=== PATIENT | male | born 1940 | race Caucasian/White ===

== ENCOUNTER 2023-05-02 12:00 | Observation (INO) | payer OTHER ==
--- OUTSIDE RECORDS SUMMARY | 2023-05-02 12:05 | XMS REPORT | Continuity of Care Document ---
:1940 Author Organization [facility] t Address [address] [place] [address] [address] [place] [address] Care Team Providers Name Role Phone William Bernstein Attending Clinician Unavailable Stevo Pereyra Attending Clinician Unavailable Yimi Dykes Attending Clinician Unavailable Yimi Dykes Admitting Clinician Unavailable Payers Payer Name Policy Type Policy Number Effective Date Expiration Date S ource Problems This patient has no known problems. Allergies, Adverse Reactions, Alerts Allergy Allergy Status Severity Reaction(s) Onset Inactive Treating Comm ents Source Name Type Date Date Clinician No Known DA Active U 2020-0 [facility] 1-20 Clear Allergie 00:00: Paul s [facility] No Known DA Active U 2020-0 [facility] 1-20 Clear Allergie 00:00: Paul s [facility] amlodipi DA Active U 2020-0 [facility] ne 1-12 Clear 00:00: Paul [facility] hydralaz DA Active U 2020-0 [facility] ine 1-12 Clear 00:00: Paul [facility] levothyr DA Active U 2020-0 [facility] oxine 1-12 Clear 00:00: Paul [facility] edoxaban DA Active U 2020-0 [facility] 1-12 Clear 00:00: Paul [facility] amlodipi DA Active U UNKNOWN 2020-0 [facility] ne 1-12 Clear 00:00: Paul [facility] hydralaz DA Active U UNKNOWN 2020-0 [facility] ine 1-12 Clear 00:00: Paul [facility] levothyr DA Active U UNKNOWN [facility] oxine 1-12 Clear 00:00: Paul [facility] edoxaban DA Active U UNKNOWN [facility] 1-12 Clear 00:00: Paul [facility] Medications This patient has no known medications. Procedures Procedure Date / Time Performed Performing Clinician [facility] e [id number] 2020-10-06 00:00:00 CHAAB.01 [facility] [id number] 2020-10-06 00:00:00 CHAAB.01 [facility] [id number] 2020-10-06 00:00:00 CHAAB.01 [facility] Encounters Start End Encounter Admission Attending Care Care Encounter Source Date/Time Date/Time Type Type Clinicians Facility Department ID 2020-10-05 2020-10-05 Emergency EM Bernstein, [facility] [id number] [facility] 13:47:00 13:47:00 William 62 [facility] 2020-09-27 2020-09-27 Outpatient Roddy, [facility] [id number] [facility] 09:30:00 09:30:00 Kaylyn 99 [facility] 2020-08-30 2020-08-30 Outpatient Dykes, [facility] RMRI [id number] [facility] 16:00:00 16:00:00 Yimi 22 [facility] Results Test Description Test Time Test Comments Results Result Comments Source BASIC METABOLIC PANEL 2020-10-07 04:26:00 Test Item Value Reference Range Interpretation Comme nts SODIUM (test code = NA) 136 mEq/L 134-147 N POTASSIUM (test code = K) 3.8 mEq/L 3.4-5.0 N CHLORIDE (test code = CL) 103 mEq/L 100-108 N CARBON DIOXIDE (test code = CO2) 26 mEq/l 21-33 N ANION GAP (test code = GAP) 11 0-20 N GLUCOSE (test code = GLU) 138 mg/dL 70-110 H BLOOD UREA NITROGEN (test code = 20 mg/dL 7-18 H BUN) GLOMERULAR FILTRATION RATE (test 72.3 70-80 N Units of measure = ml/min/1.73 code = GFR) m2 CREATININE (test code = CREAT) 1.0 mg/dL 0.6-1.3 N CALCIUM (test code = CA) 9.2 mg/dL 8.0-10.5 N CBC W/AUTO [id number] 04:16:00 Test Item Value Reference Range Interpretation Comments WHITE BLOOD CELL (test code = 10.5 x10 3/uL 4.5-11.0 WBC) RED BLOOD CELL (test code = 4.49 x10 6/uL 4.00-5.60 N RBC) HEMOGLOBIN (test code = HGB) 14.3 g/dL 12.5-16.9 N HEMATOCRIT (test code = HCT) 43.2 % 37.5-50.7 N MEAN CELL VOLUME (test code = 96.2 fL 81.0-99.0 N MCV) MEAN CELL HGB (test code = MCH) 31.8 pg 27.0-33.0 N MEAN CELL HGB CONCETRATION 33.1 g/dL 33.0-37.0 N (test code = MCHC) RED CELL DISTRIBUTION WIDTH CV 13.8 % 11.5-14.5 N (test code = RDW) RED CELL DISTRIBUTION WIDTH SD 48.8 fL 37.0-54.0 N (test code = RDW-SD) PLATELET COUNT (test code = 180 x10 3/uL 150-400 N PLT) MEAN PLATELET VOLUME (test code 11.3 fL 7.0-9.0 H = MPV) NEUTROPHIL % (test code = NT%) 80.1 % 56.0-77.0 H IMMATURE GRANULOCYTE % (test 0.5 % 0.0-2.0 N code = IG%) LYMPHOCYTE % (test code = LY%) 10.2 % 14.0-32.0 L MONOCYTE % (test code = MO%) 9.1 % 4.8-9.0 H EOSINOPHIL % (test code = EO%) 0.0 % 0.3-3.7 L BASOPHIL % (test code = BA%) 0.1 % 0.0-2.0 N NUCLEATED RBC % (test code = 0.0 % 0-0 N NRBC%) NEUTROPHIL # (test code = NT#) 8.41 x10 3/uL 2.0-7.6 H IMMATURE GRANULOCYTE # (test 0.05 x10 3/uL 0.00-0.03 H code = IG#) LYMPHOCYTE # (test code = LY#) 1.07 x10 3/uL 1.0-3.8 N MONOCYTE # (test code = MO#) 0.95 x10 3/uL 0.1-0.8 H EOSINOPHIL # (test code = EO#) 0.00 x10 3/uL 0.0-0.2 N BASOPHIL # (test code = BA#) 0.01 x10 3/uL 0.0-0.2 N NUCLEATED RBC # (test code = 0.00 x10 3/uL 0.0-0.1 N NRBC#) MANUAL DIFF REQUIRED (test code NO = MDIFF) COMPREHENSIVE METABOLIC [id number] 13:52:00 Test Item Value Reference Range Interpretation Comments SODIUM (test code = NA) 137 mEq/L 134-147 N POTASSIUM (test code = 3.7 mEq/L 3.4-5.0 N K) CHLORIDE (test code = 107 mEq/L 100-108 N CL) CARBON DIOXIDE (test 25 mEq/l 21-33 N code = CO2) ANION GAP (test code = 9 0-20 N GAP) GLUCOSE (test code = 150 mg/dL 70-110 H GLU) BLOOD UREA NITROGEN 18 mg/dL 7-18 N (test code = BUN) GLOMERULAR FILTRATION 81.6 70-80 H Units of measure = RATE (test code = GFR) ml/mi n/1.73 m2 CREATININE (test code = 0.9 mg/dL 0.6-1.3 N CREAT) TOTAL PROTEIN (test 6.9 g/dL 6.4-8.2 N code = PROT) ALBUMIN (test code = 3.40 g/dL 3.4-5.0 N ALB) CALCIUM (test code = 9.4 mg/dL 8.0-10.5 N CA) BILIRUBIN TOTAL (test 0.70 mg/dL 0.0-1.0 N code = BILT) SGOT/AST (test code = 26 IUnit/L 15-37 N AST) SGPT/ALT (test code = 18 IUnit/L 30-65 L ALT) ALKALINE PHOSPHATASE 69 IUnit/L 20-125 N TOTAL (test code = ALKP) [id number] 13:52:00 Test Item Value Reference Range Interpretation Comments PHOSPHOROUS (test code = PHOS) 2.4 MG/DL 2.5-4.9 L [id number] 13:52:00 Test Item Value Reference Range Interpretation Comments MAGNESIUM (test code = MAG) 1.71 mg/dL 1.80-2.40 L CALCIUM [id number] 13:52:00 Test Item Value Reference Range Interpretation Comments CALCIUM IONIZED (test code = ARIANNA) 1.19 MMOL/L 1.12-1.32 N PROTHROMBIN [id number] 13:30:00 Test Item Value Reference Range Interpretation Comments PROTHROMBIN TIME 14.9 SECONDS 9.3-12.9 H PATIENT (test code = PTP) INTERNATIONAL NORMAL 1.4 0.8-1.2 H TARGET INR BY RATIO (test code = INDICATIO N Indication INR) INR1. Prophylax is of venous thrombos is 2.0 - 3.0 (orthoped ic surgery), Proph ylaxis of venous throm bosis (other than hig h-risk surgery), Treat ment of Deep Vein Thrombosis/Pulm onary Embolism, Preve ntion of systemic emb olism - Tissue heart va lves, Acute Myocardia l Infarction (to prevent systemic emboli sm), Valvular heart disease, Atrial Fibrillation, Bileaflet mecha nical valve in aortic position.2. Mec hanical prosthetic valv es (high risk), 2. 5 - 3.5 Presence of Lup us Anticoagulant o r Antiphospholipi d Antibodies, Pre vention of systemic em bolism - Acute Myocard ial Infarction (to prevent recurrent infar ct). LACTIC [id number] 13:29:00 Test Item Value Reference Range Interpretation Comments LACTIC ACID (test code = LACT) 1.0 mmol/L 0.4-1.9 N COMPREHENSIVE METABOLIC [id number] 13:21:00 Test Item Value Reference Range Interpretation Comments SODIUM (test code = NA) mEq/L 134-147 POTASSIUM (test code = K) mEq/L 3.4-5.0 CHLORIDE (test code = CL) mEq/L 100-108 CARBON DIOXIDE (test code = CO2) mEq/l 21-33 ANION GAP (test code = GAP) 0-20 GLUCOSE (test code = GLU) mg/dL 70-110 BLOOD UREA NITROGEN (test code = mg/dL 7-18 BUN) GLOMERULAR FILTRATION RATE (test 70-80 code = GFR) CREATININE (test code = CREAT) mg/dL 0.6-1.3 TOTAL PROTEIN (test code = PROT) g/dL 6.4-8.2 ALBUMIN (test code = ALB) g/dL 3.4-5.0 CALCIUM (test code = CA) mg/dL 8.0-10.5 BILIRUBIN TOTAL (test code = BILT) mg/dL 0.0-1.0 SGOT/AST (test code = AST) IUnit/L 15-37 SGPT/ALT (test code = ALT) IUnit/L 30-65 ALKALINE PHOSPHATASE TOTAL (test IUnit/L 20-125 code = ALKP) [id number] 13:21:00 Test Item Value Reference Range Interpretation Comments PHOSPHOROUS (test code = PHOS) MG/DL 2.5-4.9 [id number] 13:21:00 Test Item Value Reference Range Interpretation Comments MAGNESIUM (test code = MAG) mg/dL 1.80-2.40 CALCIUM [id number] 13:21:00 Test Item Value Reference Range Interpretation Comments CALCIUM IONIZED (test code = ARIANNA) 1.19 MMOL/L 1.12-1.32 N CBC W/AUTO [id number] 13:20:00 Test Item Value Reference Range Interpretation Comments WHITE BLOOD CELL (test code = 6.8 x10 3/uL 4.5-11.0 N WBC) RED BLOOD CELL (test code = 4.58 x10 6/uL 4.00-5.60 N RBC) HEMOGLOBIN (test code = HGB) 14.9 g/dL 12.5-16.9 N HEMATOCRIT (test code = HCT) 43.9 % 37.5-50.7 N MEAN CELL VOLUME (test code = 95.9 fL 81.0-99.0 N MCV) MEAN CELL HGB (test code = MCH) 32.5 pg 27.0-33.0 N MEAN CELL HGB CONCETRATION 33.9 g/dL 33.0-37.0 N (test code = MCHC) RED CELL DISTRIBUTION WIDTH CV 14.0 % 11.5-14.5 N (test code = RDW) RED CELL DISTRIBUTION WIDTH SD 49.3 fL 37.0-54.0 N (test code = RDW-SD) PLATELET COUNT (test code = 165 x10 3/uL 150-400 N PLT) MEAN PLATELET VOLUME (test code 11.2 fL 7.0-9.0 H = MPV) NEUTROPHIL % (test code = NT%) 85.3 % 56.0-77.0 H IMMATURE GRANULOCYTE % (test 0.6 % 0.0-2.0 N code = IG%) LYMPHOCYTE % (test code = LY%) 11.3 % 14.0-32.0 L MONOCYTE % (test code = MO%) 2.4 % 4.8-9.0 L EOSINOPHIL % (test code = EO%) 0.1 % 0.3-3.7 L BASOPHIL % (test code = BA%) 0.3 % 0.0-2.0 N NUCLEATED RBC % (test code = 0.0 % 0-0 N NRBC%) NEUTROPHIL # (test code = NT#) 5.76 x10 3/uL 2.0-7.6 N IMMATURE GRANULOCYTE # (test 0.04 x10 3/uL 0.00-0.03 H code = IG#) LYMPHOCYTE # (test code = LY#) 0.76 x10 3/uL 1.0-3.8 L MONOCYTE # (test code = MO#) 0.16 x10 3/uL 0.1-0.8 N EOSINOPHIL # (test code = EO#) 0.01 x10 3/uL 0.0-0.2 N BASOPHIL # (test code = BA#) 0.02 x10 3/uL 0.0-0.2 N NUCLEATED RBC # (test code = 0.00 x10 3/uL 0.0-0.1 N NRBC#) MANUAL DIFF REQUIRED (test code NO = MDIFF) [id number] 09:29:00 Test Item Value Reference Range Interpretation Comments ACT-ISTAT (test code 219 SEC 74-137 H Perform ed by certified = ACTI) pilling machine operator at [facility] [id number] 08:25:00 Test Item Value Reference Range Interpretation Comments ACT-ISTAT (test code 268 SEC 74-137 H Perform ed by certified = ACTI) pilling machine operator at [facility] PROTHROMBIN [id number] 06:18:00 Test Item Value Reference Range Interpretation Comments PROTHROMBIN TIME 13.9 SECONDS 9.3-12.9 H PATIENT (test code = PTP) INTERNATIONAL NORMAL 1.3 0.8-1.2 H TARGET INR BY RATIO (test code = INDICATIO N Indication INR) INR1. Prophylax is of venous thrombos is 2.0 - 3.0 (orthoped ic surgery), Proph ylaxis of venous throm bosis (other than hig h-risk surgery), Treat ment of Deep Vein Thrombosis/Pulm onary Embolism, Preve ntion of systemic emb olism - Tissue heart va lves, Acute Myocardia l Infarction (to prevent systemic emboli sm), Valvular heart disease, Atrial Fibrillation, Bileaflet mecha nical valve in aortic position.2. Mec hanical prosthetic valv es (high risk), 2. 5 - 3.5 Presence of Lup us Anticoagulant o r Antiphospholipi d Antibodies, Pre vention of systemic emb olism - Acute Myocardia l Infarction (to prevent recurrent infar ct). COMMENTS: please add to am labCOMPREHENSIVE METABOLIC [id number] 05:50:00 Test Item Value Reference Range Interpretation Comments SODIUM (test code = NA) 139 mEq/L 134-147 N POTASSIUM (test code = 3.5 mEq/L 3.4-5.0 N K) CHLORIDE (test code = 104 mEq/L 100-108 N CL) CARBON DIOXIDE (test 28 mEq/l 21-33 N code = CO2) ANION GAP (test code = 10 0-20 N GAP) GLUCOSE (test code = 112 mg/dL 70-110 H GLU) BLOOD UREA NITROGEN 18 mg/dL 7-18 N (test code = BUN) GLOMERULAR FILTRATION 72.3 70-80 N Units of measure = RATE (test code = GFR) ml/mi n/1.73 m2 CREATININE (test code = 1.0 mg/dL 0.6-1.3 N CREAT) TOTAL PROTEIN (test 7.6 g/dL 6.4-8.2 N code = PROT) ALBUMIN (test code = 3.80 g/dL 3.4-5.0 N ALB) CALCIUM (test code = 9.0 mg/dL 8.0-10.5 N CA) BILIRUBIN TOTAL (test 0.80 mg/dL 0.0-1.0 N code = BILT) SGOT/AST (test code = 28 IUnit/L 15-37 N AST) SGPT/ALT (test code = 17 IUnit/L 30-65 L ALT) ALKALINE PHOSPHATASE 74 IUnit/L 20-125 N TOTAL (test code = ALKP) LIPID PROFILE (CORONARY RISK)2020-10-06 05:50:00 Test Item Value Reference Range Interpretation Comments TRIGLYCERIDES (test 83 mg/dL 40-150 N code = TRIG) CHOLESTEROL (test 165 mg/dL <200 code = CHOL) CHOLESTEROL/HDL 3.47 RATIO 3.43-4.97 N RISK ASSOCIA GUNNAR WITH RATIO (test code = CHOL/HDL RATIOS: RISK CHOLHDL) MALE FEMALE1/2 AVERAGE 3.43 3.27AVERAG E 4.97 4.442X AVERAGE 9.55 7.053X AVERAGE 23.39 11.04 NOTE THAT THE REFERENCE VALUE IS RELATEDTO RISK LEVELS RECOMMENDED BY THE NATL.HEART, VICKI G, AND BLOOD INST. HDL CHOLESTEROL 47.5 mg/dL 32-72 N (test code = HDL) LIPOPROTEIN LDL 117.7 mg/dL 0-100 H <100 OPTIMAL 100-129 (test code = LDL) NEAR OPTIM AL/ABOVE [id number] HIGH>VG=499 LETTY Y HIGH*Guidelines provided by the National Choles terol EducationProgra m Adult Treatment Panel III TSH REFLEX TO [id number] 05:50:00 Test Item Value Reference Range Interpretation Comments TSH REFLEX TO FT4 (test code = 0.83 IU/mL 0.42-5.47 N TSHREFLEX) THROMBOPLASTIN TIME [id number] 05:39:00 Test Item Value Reference Range Interpretation Comments THROMBOPLASTIN TIME 37.2 Seconds 25.0-39.5 N Therape utic Range: PARTIAL (test code = 50.4 - 88.3 Seconds PTT) Effective 12/30/2018 CBC W/AUTO [id number] 05:36:00 Test Item Value Reference Range Interpretation Comments WHITE BLOOD CELL (test code = 5.6 x10 3/uL 4.5-11.0 N WBC) RED BLOOD CELL (test code = 4.86 x10 6/uL 4.00-5.60 N RBC) HEMOGLOBIN (test code = HGB) 15.7 g/dL 12.5-16.9 N HEMATOCRIT (test code = HCT) 47.3 % 37.5-50.7 N MEAN CELL VOLUME (test code = 97.3 fL 81.0-99.0 N MCV) MEAN CELL HGB (test code = MCH) 32.3 pg 27.0-33.0 N MEAN CELL HGB CONCETRATION 33.2 g/dL 33.0-37.0 N (test code = MCHC) RED CELL DISTRIBUTION WIDTH CV 13.9 % 11.5-14.5 N (test code = RDW) RED CELL DISTRIBUTION WIDTH SD 50.5 fL 37.0-54.0 N (test code = RDW-SD) PLATELET COUNT (test code = 181 x10 3/uL 150-400 N PLT) MEAN PLATELET VOLUME (test code 10.6 fL 7.0-9.0 H = MPV) NEUTROPHIL % (test code = NT%) 54.8 % 56.0-77.0 L IMMATURE GRANULOCYTE % (test 0.4 % 0.0-2.0 N code = IG%) LYMPHOCYTE % (test code = LY%) 30.1 % 14.0-32.0 N MONOCYTE % (test code = MO%) 11.2 % 4.8-9.0 H EOSINOPHIL % (test code = EO%) 2.8 % 0.3-3.7 N BASOPHIL % (test code = BA%) 0.7 % 0.0-2.0 N NUCLEATED RBC % (test code = 0.0 % 0-0 N NRBC%) NEUTROPHIL # (test code = NT#) 3.09 x10 3/uL 2.0-7.6 N IMMATURE GRANULOCYTE # (test 0.02 x10 3/uL 0.00-0.03 N code = IG#) LYMPHOCYTE # (test code = LY#) 1.70 x10 3/uL 1.0-3.8 N MONOCYTE # (test code = MO#) 0.63 x10 3/uL 0.1-0.8 N EOSINOPHIL # (test code = EO#) 0.16 x10 3/uL 0.0-0.2 N BASOPHIL # (test code = BA#) 0.04 x10 3/uL 0.0-0.2 N NUCLEATED RBC # (test code = 0.00 x10 3/uL 0.0-0.1 N NRBC#) MANUAL DIFF REQUIRED (test code NO = MDIFF) COVID 19 Asymptomatic IH [id number] 18:18:00 Test Item Value Reference Range Interpretation Comments COVID 19 Asymptomatic Negative Negative A nega tive result is IH AG (test code = presumpti ve and should COVNONPUIAG) be confirmedwit h an FDA authorized mole cular assay, if neces emily forpatient ann gement.A positive result does not rule out co-inf ections withother patho gens.This test detects tierra th viable (live) and non-viable,SARS -CoV, and SARS-CoV-2. Aaliyah t performance dep ends on theamount of vi ning (antigen) in th e sample.This aaliyah t has not been FDA cleare d or approved; the t est hasbeen authori zed by FDA under an Em ergency Use Authorizati on(EUA) for use by labo ratories certified under the CLIA thatmeet the requirements to perform moderate, high or waivedcomplexit y tests. COMMENTS: If not done this admissionUA RFLX MICR CULT IF [id number] 17:25:00 Test Item Value Reference Range Interpretation Comments UA COLOR (test code = COLU) STRAW YEL/STRAW UA APPEARANCE (test code = CLEAR CLEAR APPU) UA GLUCOSE DIPSTICK (test code NEGATIVE NEGATIVE = DGLUU) UA BILIRUBIN DIPSTICK (test NEGATIVE NEGATIVE code = BILU) UA KETONE DIPSTICK (test code TRACE NEGATIVE A = KETU) UA SPECIFIC GRAVITY (test code 1.021 1.005-1.030 N = SGU) UA BLOOD DIPSTICK (test code = NEGATIVE NEGATIVE DOMINGA) UA PH DIPSTICK (test code = 7.0 5.0-7.0 N HARRISON) UA PROTEIN DIPSTICK (test code NEGATIVE NEGATIVE = PROU) UA UROBILINIOGEN DIPSTICK 0.2 mg/dL 0.2-1.0 (test code = URO) UA NITRITE DIPSTICK (test code NEGATIVE NEGATIVE = SHELTON) UA LEUKOCYTE ESTERASE DIPSTICK NEGATIVE NEGATIVE (test code = LEUU) UA WBC (test code = WBCU) 0-3 WBC/HPF 0-3 UA RBC (test code = RBCU) 0-3 RBC/HPF 0-3 UA WBC NO REFLEX (test code = 0-3 WBC/HPF 0-3 WBCUCL) UA BACTERIA (test code = BACU) NONE SEEN /HPF NONE SEEN UA SQUAMOUS CELLS (test code = NONE SEEN /HPF NONE SEEN SQU) UA MUCUS (test code = MUCU) TRACE /LPF NONE SEEN Indication for culture: Dysuria/FrequencySpecimen Description: CLEAN CATCH- CTA ABD PEL W [id number] 16:26:00 [facility] 1940 Sex: M Name: ALLYSSA MATIAS [facility] : 1940 Age/S: 80 / M [address] [place] [address] Blvd Unit #: [id number] Loc: [place] [address] Phys: William Bernstein MD Acct: [id number] Dis Date: Status: REG ER PHONE #: [phone] Exam Date: 10/05/2020 1544 FAX #: [phone] Reason: TAA/AAA - abd. pains EXAMS:CPT CODE: [id number] CTA ABD PEL W CONT [id number] PROCEDURE: CTA CHEST ABDOMEN AND PELVIS 10/05/2020 INDICATION: Upper abdominal pain for one day. History of AAA. COMPARISON: Chest CT angiogram 09/27/2020. TECHNIQUE: CTA of the thoracoabdominal aorta and pelvis was performed with 100 ml Isovue 300 intravenous contrast. Helical imaging performed apices to the symphysis. Multiplanar and 3-D MIP angiographic reconstructions are reviewed. Precontrast images of the chest obtained as part of a dissection protocol. DLP= 1866.37 mGy-cm FINDINGS: CHEST: AORTA: Aneurysmal dilatation of the aortic root and ascending aorta is noted with no intramural hematoma or dissection flap. Moderate transverse and descending aortic calcification. 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 No edema or lobar consolidation. No pleural effusion. No endobronchial filling defects. No bronchiectasis or cavitation. Old granulomatous disease. MEDIASTINUM: Cardiomegaly with multichamber enlargement and severe coronary atherosclerosis. [place] left ventricular appendage without thrombus. No ventricular hypertrophy or aneurysm. No pericardial thickening or effusion. No large central pulmonary emboli seen in a study tailored for assessment of the aorta.No adenopathy. MUSCULOSKELETAL: Severe thoracic spondylosis without destructive bone lesions. ABDOMEN: AORTA: Tortuous, severely atherosclerotic aorta with partially thrombosed fusiform infrarenal abdominal aortic aneurysm, similar in PAGE 1 Signed Report (CONTINUED) Name: ALLYSSA MATIAS [facility] Eduardo : 1940 Age/S: 80 / M [address] [place] [address] Blvd Unit #: [id number] Loc: [place] [address] Phys: William Bernstein MD Acct: [id number] Dis Date: Status: REG ER PHONE #: [phone] Exam Date: 10/05/2020 1541 FAX #: [phone] Reason: TAA/AAA - abd. pains EXAMS: CPT CODE: [id number] CTA ABD PEL W CONT [id number] (Continued) appearance to the recent CT angiograms and with estimated diameters as de scribed, Maximum aneurysm cross-sectional diameter = 6.3 cm Aneurysm length = 11 cm Length of infrarenal aortic neck = 2.5 cm Infrarenal aortic neck diameter = 2.6 cm Distance from aneurysm length to iliac bifurcation = less than 1 cm Aortic diameter at iliac bifurcation = 1.9 cm Right common iliac artery diameter = 1.6 cm Left common iliac artery diameter = 1.8 cm Right common femoral artery: = 1.3 cm Left common femoral artery: = 1.2 cm Patent celiac, mesenteric and renal arterial circulation. IMAarises from the thrombosed aneurysm lumen with partial retrograde filling from left colic branches. SOLID ORGANS: No abnormal enhancement is seen in the liver, gallbladder, spleen, pancreas, adrenal glands or kidneys. Posterior renal cortex. No enhancing lesions, calculi or hydronephrosis. BOWEL: Limited bowel assessment without oral contrast. No pneumatosis or portal venous air. The appendix is not confidently visualized. There is no pericecal inflammation. PERITONEUM: No free intraperitoneal fluidor air. RETROPERITONEUM: No adenopathy, mass or hematoma. PELVIS: No pelvic adenopathy, mass or freefluid. No bladder filling defects or diverticula. Prostatic hypertrophy. MUSCULOSKELETAL: Severe lumbosacral spondylosis without destructive bone lesions. IMPRESSION: 1. Grossly stable aortic root/ascending aortic aneurysm accounting for measurement error. 2. Grossly stable fusiform infrarenal abdominal aortic aneurysm without rupture. 3. 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 4. Patent celiac, mesenteric and renal arterial circulation. PAGE 2 Signed Report (CONTINUED) Name: ALLYSSA MATIAS [facility] : 1940 Age/S: 80 / M [address] [place] [address] Blvd Unit #: [id number] Loc: [place] [address] Phys: William Bernstein MD Acct: [id number] Dis Date: Status: REG ER PHONE #: [phone] Exam Date: 10/05/2020 1544 FAX #: [phone] Reason: TAA/AAA - abd. pains EXAMS: CPT CODE: [id number] CTA ABD PEL W CONT 08027 (Continued) 5. 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 6. Cardiomegaly with severe coronary atherosclerosis. 7. No abnormal solidorgan enhancement. 8. Left simple renal cyst. SL: [id number] at 1626 Reported and signed by: Dain Hernandez M.D. CC: William Bernstein MD; Yimi Dykes Technologist:Suzie Ribeiro, RT(R) CTDI: DLP: Trnscb Date/Time: 10/05/2020 (1626) [email or web address] Orig Print D/T: S: 10/05/2020 (2274) PAGE 3 Signed Report- CT ANGIO [id number] 16:26:00 [facility] DARLENEName: ALLYSSA MATIAS : 1940 Sex: M Name: ALLYSSA MATIAS [facility] Canalou : 1940 Age/S: 80 / M [address] [place] [address] Unit #: [id number] Loc: [place] [address] Phys: William Bernstein MD Acct: [id number] Dis Date: Status: REG ER PHONE #: [phone] Exam Date: 10/05/2020 1544 FAX #: [phone] Reason: TAA/AAA - abd. pains EXAMS: CPT CODE: [id number] CT ANGIO CHEST [id number] PROCEDURE: CTA CHEST ABDOMEN AND PELVIS 10/05/2020 INDICATION: Upper abdominal pain for one day. History of AAA. COMPARISON: Chest CT angiogram 09/27/2020. TECHNIQUE: CTA of the thoracoabdominal aorta and pelvis was performed with 100 ml Isovue 300 intravenous contrast. Helical imaging performed apices to the symphysis. Multiplanar and 3-D MIP angiographic reconstructions are reviewed. 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 Moderate transverse and descending aortic calcification. 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 No edema or lobar consolidation. No pleural effusion. No endobronchial filling defects. No bronchiectasis or cavitation. Old granulomatous disease. MEDIASTINUM: Car diomegaly with multichamber enlargement and severe coronary atherosclerosis. [place] left ventricular appendage without thrombus. No ventricular hypertrophy or aneurysm. No pericardial thickening or effusion. No large central pulmonary emboli seen in a study tailored for assessment of the aorta. No adenopathy. MUSCULOSKELETAL: Severe thoracic spondylosis without destructive bone lesions. ABDOMEN: AORTA: Tortuous, severely atherosclerotic aorta with partially thrombosed fusiform infrarenal abdominalaortic aneurysm, similar in PAGE 1 Signed Report (CONTINUED) Name: ALLYSSA MATIAS [facility] : 1940 Age/S: 80 / M [address] [place] [address] Blvd Unit #: [id number] Loc: [place] [address] Phys: William Bernstein MD Acct: [id number] Dis Date: Status: REG ER PHONE #: [phone] Exam Date: 10/05/2020 1544 FAX #: [phone] Reason: TAA/AAA - abd. pains EXAMS: CPT CODE: [id number] CT ANGIO CHEST 11735 (Continued) appearance to the recent CT angiograms and with estimated diameters as described, Maximum aneurysm cross-sectional diameter = 6.3 cm Aneurysm length = 11 cm Length of infrarenal aorticneck = 2.5 cm Infrarenal aortic neck diameter = 2.6 cm Distance from aneurysm length to iliac bifurcation = less than 1 cm Aortic diameter at iliac bifurcation = 1.9 cm Right common iliac artery diameter = 1.6 cm Left common iliac artery diameter = 1.8 cm Right common femoral artery: = 1.3 cm Left common femoral artery: = 1.2 cm Patent celiac, mesenteric and renal arterial circulation. RINA arises from the thrombosed aneurysm lumen with partial retrograde filling from left colic branches. SOLID ORGANS: No abnormal enhancement is seen in the liver, gallbladder, spleen, pancreas, adrenal glands or kidneys. Posterior renal cortex. No enhancing lesions, calculi or hydronephrosis. BOWEL: Limited bowel assessment without oral contrast. No pneumatosis or portal venous air. The appendix is not confidentlyvisualized. There is no pericecal inflammation. PERITONEUM: No free intraperitoneal fluid or air. RETROPERITONEUM: No adenopathy, mass or hematoma. PELVIS: No pelvic adenopathy, mass or free fluid. No bladder filling defects or diverticula. Prostatic hypertrophy. MUSCULOSKELETAL: Severe lumbosacral spondylosis without destructive bone lesions. IMPRESSION: 1. Grossly stable aortic root/ascending aortic aneurysm accounting for measurement error. 2. Grossly stable fusiform infrarenal abdominal aortic aneurysm without rupture. 3. 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 4. Patent celiac, mesenteric and renal arterial circulation. PAGE 2 Signed Report (CONTINUED) Name: ALLYSSA MATIAS [facility] : 1940 Age/S: 80 / M [address] [place] [address] Blvd Unit #: [id number] Loc: [place] [address] Phys: William Bernstein MD Acct: [id number] Dis Date: Status: REG ER PHONE #: [phone] Exam Date: 10/05/2020 1544 FAX #: [phone] Reason: TAA/AAA - abd. pains EXAMS: CPT CODE: [id number] CT ANGIO CHEST 70932 (Continued) 5. 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 6. Cardiomegaly with severe coronary atherosclerosis. 7. No abnormal solid organ enhancement. 8. Left simple renal cyst. SL: [id number] at 1626 Reported and signed by: Dain Hernandez M.D. CC: William Bernstein MD; Yimi Dykes Technologist:RT Tiarra(R) CTDI: DLP: Trnscb Date/Time: 10/05/2020 (162)[email or web address].[email or web address] Orig Print D/T: S: 10/05/2020 (1630) PAGE 3 Signed ReportLIPOPROTEIN [id number] 15:26:00 Test Item Value Reference Range Interpretation Comments LIPOPROTEIN LDL 113.1 mg/dL 0-100 H <100 OPTIMAL 100-129 (test code = LDL) NEAR OPTIM AL/ABOVE [id number] HIGH>JH=674 LETTY Y HIGH*Guidelines provided by the [facility] terol [facility]Pros[facility] Adult Treatment Panel III COMPREHENSIVE METABOLIC [id number] 15:05:00 Test Item Value Reference Range Interpretation Comments SODIUM (test code = NA) mEq/L 134-147 POTASSIUM (test code = K) mEq/L 3.4-5.0 CHLORIDE (test code = CL) mEq/L 100-108 CARBON DIOXIDE (test code = CO2) mEq/l 21-33 ANION GAP (test code = GAP) 0-20 GLUCOSE (test code = GLU) mg/dL 70-110 BLOOD UREA NITROGEN (test code = mg/dL 7-18 BUN) GLOMERULAR FILTRATION RATE (test 70-80 code = GFR) CREATININE (test code = CREAT) mg/dL 0.6-1.3 TOTAL PROTEIN (test code = PROT) g/dL 6.4-8.2 ALBUMIN (test code = ALB) g/dL 3.4-5.0 CALCIUM (test code = CA) mg/dL 8.0-10.5 BILIRUBIN TOTAL (test code = BILT) mg/dL 0.0-1.0 SGOT/AST (test code = AST) IUnit/L 15-37 SGPT/ALT (test code = ALT) IUnit/L 30-65 ALKALINE PHOSPHATASE TOTAL (test IUnit/L 20-125 code = ALKP) [id number] 15:05:00 Test Item Value Reference Range Interpretation Comments LIPASE (test code = LIP) U/L 13-57 [id number] 15:05:00 Test Item Value Reference Range Interpretation Comments TROPONIN-I 0.135 ng/mL 0.000-0.045 H Negative: <= 0. 045 Positive: (test code = >= 0.046 Correl ation with TROPI) serial results, other cardiac markers andclin ical findings is necessary to determine the clinicalsignifi cance of this result. Results using different metho dologies should not be c omparedto one another as olinda titative results may merrick y by method. COMPREHENSIVE METABOLIC [id number] 15:05:00 Test Item Value Reference Range Interpretation Comments SODIUM (test code = NA) 140 mEq/L 134-147 N POTASSIUM (test code = 3.4 mEq/L 3.4-5.0 N K) CHLORIDE (test code = 106 mEq/L 100-108 N CL) CARBON DIOXIDE (test 28 mEq/l 21-33 N code = CO2) ANION GAP (test code = 9 0-20 N GAP) GLUCOSE (test code = 97 mg/dL 70-110 N GLU) BLOOD UREA NITROGEN 18 mg/dL 7-18 N (test code = BUN) GLOMERULAR FILTRATION 64.7 70-80 L Units of measure = RATE (test code = GFR) ml/mi n/1.73 m2 CREATININE (test code = 1.1 mg/dL 0.6-1.3 N CREAT) TOTAL PROTEIN (test 7.1 g/dL 6.4-8.2 N code = PROT) ALBUMIN (test code = 3.90 g/dL 3.4-5.0 N ALB) CALCIUM (test code = 9.6 mg/dL 8.0-10.5 N CA) BILIRUBIN TOTAL (test 0.80 mg/dL 0.0-1.0 N code = BILT) SGOT/AST (test code = 28 IUnit/L 15-37 N AST) SGPT/ALT (test code = 19 IUnit/L 30-65 L ALT) ALKALINE PHOSPHATASE 75 IUnit/L 20-125 N TOTAL (test code = ALKP) [id number] 15:05:00 Test Item Value Reference Range Interpretation Comments LIPASE (test code = LIP) 42 U/L 13-57 N [id number] 15:05:00 Test Item Value Reference Range Interpretation Comments TROPONIN-I 0.135 ng/mL 0.000-0.045 H Negative: <= 0. 045 Positive: (test code = >= 0.046 Correl ation with TROPI) serial results, other cardiac markers andclin ical findings is necessary to determine the clinicalsignifi cance of this result. Results using different metho dologies should not be c omparedto one another as olinda titative results may merrick y by method. CBC W/AUTO [id number] 14:55:00 Test Item Value Reference Range Interpretation Comments WHITE BLOOD CELL (test code = 6.4 x10 3/uL 4.5-11.0 N WBC) RED BLOOD CELL (test code = 4.76 x10 6/uL 4.00-5.60 N RBC) HEMOGLOBIN (test code = HGB) 15.5 g/dL 12.5-16.9 N HEMATOCRIT (test code = HCT) 46.6 % 37.5-50.7 N MEAN CELL VOLUME (test code = 97.9 fL 81.0-99.0 N MCV) MEAN CELL HGB (test code = MCH) 32.6 pg 27.0-33.0 N MEAN CELL HGB CONCETRATION 33.3 g/dL 33.0-37.0 N (test code = MCHC) RED CELL DISTRIBUTION WIDTH CV 14.2 % 11.5-14.5 N (test code = RDW) RED CELL DISTRIBUTION WIDTH SD 51.5 fL 37.0-54.0 N (test code = RDW-SD) PLATELET COUNT (test code = 182 x10 3/uL 150-400 N PLT) MEAN PLATELET VOLUME (test code 11.0 fL 7.0-9.0 H = MPV) NEUTROPHIL % (test code = NT%) 63.6 % 56.0-77.0 N IMMATURE GRANULOCYTE % (test 0.5 % 0.0-2.0 N code = IG%) LYMPHOCYTE % (test code = LY%) 23.9 % 14.0-32.0 N MONOCYTE % (test code = MO%) 9.8 % 4.8-9.0 H EOSINOPHIL % (test code = EO%) 1.6 % 0.3-3.7 N BASOPHIL % (test code = BA%) 0.6 % 0.0-2.0 N NUCLEATED RBC % (test code = 0.0 % 0-0 N NRBC%) NEUTROPHIL # (test code = NT#) 4.07 x10 3/uL 2.0-7.6 N IMMATURE GRANULOCYTE # (test 0.03 x10 3/uL 0.00-0.03 N code = IG#) LYMPHOCYTE # (test code = LY#) 1.53 x10 3/uL 1.0-3.8 N MONOCYTE # (test code = MO#) 0.63 x10 3/uL 0.1-0.8 N EOSINOPHIL # (test code = EO#) 0.10 x10 3/uL 0.0-0.2 N BASOPHIL # (test code = BA#) 0.04 x10 3/uL 0.0-0.2 N NUCLEATED RBC # (test code = 0.00 x10 3/uL 0.0-0.1 N NRBC#) MANUAL DIFF REQUIRED (test code NO = MDIFF) CREATININE W ESTIMATED [id number] 13:29:00 Test Item Value Reference Range Interpretation Comments BEDSIDE CREATININE (test code = MG/DL 0.6-1.3 N CREATBED) GLOMERULAR FILTRATION RATE POC 99 ML/MIN (test code = GFRBED) ENTER BEDSIDE CREATININE RESULT: .83Serial Number: [id number] Name of User Performing Test: TCHCREATININE W ESTIMATED [id number] 13:29:00 Test Item Value Reference Range Interpretation Comments BEDSIDE CREATININE (test code = 0.8 MG/DL 0.6-1.3 N CREATBED) GLOMERULAR FILTRATION RATE POC 99 ML/MIN (test code = GFRBED) ENTER BEDSIDE CREATININE RESULT: .83Serial Number: [id number] Name of User Performing Test: TCH- CTA ABD PEL W [id number] 11:18:00 [facility] 1940 Sex: M Name: ALLYSSA MATIAS [facility] : 1940 Age/S: 80 / M [address] [place] [address] Unit #: [id number] Loc: [place] [address] Phys: Stevo Pereyra MD Acct: [id number] Dis Date: Status: REG CLI PHONE #: [phone] Exam Date: 09/27/2020924 FAX #: [phone] Reason: 171.4, ABDOMINALAORTIC ANEURYSM , WITHOUT RUPT EXAMS: CPT CODE: [id number] CTA ABD PEL W CONT 27155 Clinical Indication: 171.4, ABDOMINAL AORTIC ANEURYSM, WITHOUT RUPTURE. , DATE: 09/27/2020 9:08 AM : 1940; Age:80 years y/o Male Comparison: None TECHNIQUE: Sequential trans-axial images of the chest, abdomen and pelvis were obtained with a multi-detector helical CT after iodinated contrast administration per dissection CTA protocol. Axial, coronal and sagittal reconstructions were obtained. 3-D postprocessing reconstructions were obtained. IV CONTRAST: 100 mL Isovue DLP: 1953 mGy-cm CT imaging performed at this location utilizes radiation dose optimization techniques which include one or more of the following: -Automated exposure control -Adjustment of the mA and/or kV according to patient size -Use of iterative reconstruction technique FINDINGS: ARTERIAL EVALUATION: Atherosclerotic changes are seen involving the aorta. Aneurysmal ascending thoracic aorta measuring 4.6 cm. Moderate coronary arteries calcification. Heart is borderline in size. No pericardial effusion. Ectatic right and left main pulmonary arteries. No central pulmonary emboli. Mild atherosclerotic changes at the origin of the celiac artery. SMA is patent. Mild atherosclerosis at the origin of bilateral renal arteries. Bilobed fusiform infrarenal abdominal aortic aneurysm is seen with upper portion measuring 2.8 x 3.1 cm and inferior portion measuring 6.9 x 6.9 cm. Subcentimeter aneurysm neck is seen. Moderate anterior mural thrombusinvolving the aneurysm. Aneurysmal bilateral common iliac arteries measuring up to 1.8 cm. Irregularities with small questionable dissection flap involving bilateral common iliac arteries. Patent bilateral external iliac arteries and common femoral arteries with mild atherosclerotic changes. Lymph Nodes: There is no mediastinal or hilar lymphadenopathy. No axillary lymphadenopathy. PAGE 1 Signed Report (CONTINUED) Name: ALLYSSA MATIAS [facility] [place] : 1940 Age/S: 80 / M [address] [place] [address] Unit #: [id number] Loc: [place] [address] Phys: Stevo Pereyra MD Acct: [id number] Dis Date: Status: REG CLI PHONE #: [phone] Exam Date: 09/27/2020924 FAX #: [phone] Reason: 171.4, ABDOMINAL AORTIC ANEURYSM , WITHOUT RUPT EXAMS: CPT CODE: [id number] CTA ABD PEL W CONT 66235 (Continued) Lungs: Mild emphysema. Patchy areas of air trapping bilaterally. No consolidation. No pleural effusion. Mild bronchiectasis bilaterally. The right lower lobe 3 mm noncalcified nodule on image 61 of series 4. Few small scattered granulomas. Liver, gallbladder, adrenal glands, kidneys, spleen and pancreas: Liver, gallbladder, adrenal glands, spleen, pancreas and right kidney are grossly unremarkable. Small simple cyst in the left kidney lower pole. No hydronephrosis. Visualized Gastrointestinal tract: Grossly unremarkable. No obstruction. Peritoneum, mesentery, retroperitoneum and soft tissues: Bladder is not well distended limiting its evaluation. Mild prostatomegaly. Bones: No acute abnormality. Spine degenerative findings. IMPRESSION: 1. Aneurysmal ascending thoracic aorta measuring 4.6 cm. 2. Borderline cardiomegaly with coronary artery disease and probable pulmonary hypertension. 3. Bilobed fusiform infrarenal abdominal aortic aneurysm with upper portion measuring 2.8 x 3.1 cmand inferior portion measuring 6.9 x 6.9 cm. Subcentimeter aneurysm neck is seen. 4. Aneurysmal bilateral common iliac arteries measuring up to 1.8 cm. Irregularities with small questionable dissectionflap involving bilateral common iliac arteries. 5. 3 mm right lower lobe noncalcified lung nodule. In the absence of risk factors for malignancy, no routine follow-up required. If the patient has a history of smoking or other risk factor to increase their risk of malignancy, then a follow-up chest CT at 12 months is recommended. 6. Prostatomegaly. Reference: Guidelines for Management of Incidental Pulmonary Nodules Detected on CT Images: From the Fleischner Society 2017. FOR INTERNAL CODING PURPOSES ONLY RESULT CODE: KENDRICK SL: [id number] PAGE 2 Signed Report (CONTINUED) Name: ALLYSSA MATIAS [facility] : 1940 Age/S: 80 / M [address] [place] [address] Unit #: [id number] Loc: [place] [address] Phys: Stevo Pereyra MD Acct: [id number] Dis Date: Status: REG CLI PHONE #: [phone] Exam Date: 09/27/2020924 FAX #: [phone] Reason: 171.4, ABDOMINAL AORTIC ANEURYSM , WITHOUT RUPT EXAMS: CPT CODE: [id number] CTA ABD PEL W CONT 92960 (Continued) at 1118 Reported and signed by: Meghan Danielle D.O. CC: Stevo Pereyra MD; Yimi Dykes Technologist:RT Evan(R) CTDI: DLP: Trnscb Date/Time: 09/27/2020 (1117) [email or web address] Orig Print D/T: S: 09/27/2020 (1120) PAGE 3 Signed Report- CT ANGIO [id number] 11:18:00 [facility] 1940 Sex: M Name: ALLYSSA MATIAS [facility] : 1940 Age/S: 80 / M [address] [place] [address] Unit #: [id number] Loc: [place] [address] Phys: Stevo Pereyra MD Acct: [id number] Dis Date: Status: REG CLI PHONE #: [phone] Exam Date: 09/27/2020924 FAX #: [phone] Reason: 171.4, ABDOMINALAORTIC ANEURYSM, WITHOUT RUPTU EXAMS: CPT CODE: [id number] CT ANGIO CHEST 98718 Clinical Indication:171.4, ABDOMINAL AORTIC ANEURYSM, WITHOUT RUPTURE. , DATE: 09/27/2020 9:08 AM : 1940; Age: 80years y/o Male Comparison: None TECHNIQUE: Sequential trans-axial images of the chest, abdomen and pelvis were obtained with a multi-detector helical CT after iodinated contrast administration per dissection CTA protocol. Axial, coronal and sagittal reconstructions were obtained. 3-D postprocessing reconstructions were obtained. IV CONTRAST: 100 mL Isovue DLP: 1953 mGy-cm CT imaging performed at [facility] utilizes radiation dose optimization techniques which include one or more of the following: - Automated exposure control -Adjustment of the mA and/or kV according to patient size -Use of iterative reconstruction technique FINDINGS: ARTERIAL EVALUATION: Atherosclerotic changes are seen involving the aorta. Aneurysmal ascending thoracic aorta measuring 4.6 cm. Moderate coronary arteries calcification. Heart is borderline in size. No pericardial effusion. Ectatic right and left main pulmonary arteries. No central pulmonary emboli. Mild atherosclerotic changes at the origin of the celiac artery. SMA is patent. Mild atherosclerosis at the origin of bilateral renal arteries. Bilobed fusiform infrarenal abdominal aortic aneurysm is seen with upper portion measuring 2.8 x 3.1 cm and inferior portion measuring 6.9 x 6.9 cm. Subcentimeter aneurysm neck is seen. Moderate anterior mural thrombus involving the aneurysm. Aneurysmal bilateral common iliac arteries measuring up to 1.8 cm. Irregularities with small questionable dissection flap involving bilateral common iliac arteries. Patent bilateral external iliac arteries and common femoral arteries with mild atherosclerotic changes. Lymph Nodes: There is no mediastinal or hilar lymphadenopathy. No axillary lymphadenopathy. PAGE 1 Signed Report(CONTINUED) Name: ALLYSSA MATIAS [facility] : 1940 Age/S: 80 / M [address] [place] [address] Unit #: [id number] Loc: [place] [address] Phys: Stevo Pereyra MD Acct: [id number] Dis Date: Status: REG CLI PHONE #: [phone] Exam Date: 09/27/2020 0910 FAX #: [phone] Reason: 171.4, ABDOMINAL AORTIC ANEURYSM, WITHOUT RUPTU EXAMS: CPT CODE: [id number] CT ANGIO CHEST 16632 (Continued) Lungs: Mild emphysema. Patchy areas of air trapping bilaterally. No consolidation. No pleural effusion. Mild bronchiectasis bilaterally. The right lower lobe 3 mm noncalcified nodule on image 61 of series 4. Few small scattered granulomas. Liver, gallbladder, adrenal glands, kidneys, spleen and pancreas: Liver, gallbladder, adrenal glands, spleen, pancreas and right kidney are grossly unremarkable. Small simple cyst in the left kidney lower pole. No hydronephrosis. Visualized Gastrointestinal tract: Grossly unremarkable. No obstruction. Peritoneum, mesentery, retroperitoneum and soft tissues:Bladder is not well distended limiting its evaluation. Mild prostatomegaly. Bones: No acute abnormality. Spine degenerative findings. IMPRESSION: 1. Aneurysmal ascending thoracic aorta measuring 4.6 cm. 2. Borderline cardiomegaly with coronary artery disease and probable pulmonary hypertension. 3. Bilobed fusiform infrarenal abdominal aortic aneurysm with upper portion measuring 2.8 x 3.1 cm and infe rior portion measuring 6.9 x 6.9 cm. Subcentimeter aneurysm neck is seen. 4. Aneurysmal bilateral common iliac arteries measuring up to 1.8 cm. Irregularities with small questionable dissection flap involving bilateral common iliac arteries. 5. 3 mm right lower lobe noncalcified lung nodule. In the absence of risk factors for malignancy, no routine follow-up required. If the patient has a history of smoking or other risk factor to increase their risk of malignancy, then a follow-up chest CT at 12 months is recommended. 6. Prostatomegaly. Reference: Guidelines for Management of Incidental Pulmonary Nodules Detected on CT Images: From the Fleischner Society 2017. FOR INTERNAL CODING PURPOSES ONLY RESULT CODE: NOD SL: [id number] PAGE 2 Signed Report (CONTINUED) Name: ALLYSSA MATIAS [facility] : 1940 Age/S: 80 / M [address] [place] [address] Unit #: [id number] Loc: [place] [address] Phys: Stevo Pereyra MD Acct: [id number] Dis Date: Status: REG CLI PHONE #: [phone] Exam Date: 09/27/2020924 FAX #: [phone] Reason: 171.4, ABDOMINAL AORTIC ANEURYSM, WITHOUT RUPTU EXAMS: CPT CODE: [id number] CT ANGIO CHEST 33467 (Continued) at 1118 Reported and signed by: Meghan Danielle D.O. CC: Stevo Pereyra MD; Yimi Dykes Technologist:RT Evan(R) CTDI: DLP: Trnscb Date/Time: 09/27/2020 (111) [email or web address] Orig Print D/T: S: 09/27/2020 (1120) PAGE 3 Signed Report- MRI L-SPINE W/O [id number] 10:18:00 [facility] : 1940 Sex: M FAX: Yimi Ga MD [phone] [place]: St: [facility] Name: SONYA MATIASAN Wander [facility] : 1940 Age/S: 80/M [address] [place] [address] Unit #: [id number] Loc: [place] [id number] Phys: Yimi Dykes MD Acct: [id number] Dis Date: Status: DEP CLI PHONE #: [phone] Exam Date: 08/30/2020 1601 FAX #: [phone] Reason: LOWER BACK PAIN RADIATING DOWN RIGHT LEG EXAMS: CPT CODE: [id number] MRI L-SPINE W/O CONT 73307 Study: - MRI L-SPINE W/O CONT 08/30/2020 3:15 PM Patient Name: ALLYSSA MATIAS MR: [id number] : 1940; Age: 80 years y/o Male Ordering Physician: Yimi Dykes MD Clinical Indication: LOWERBACK PAIN RADIATING DOWN RIGHT LEG Comparison: None TECHNIQUE: Multiplanar T1, T2, and STIR weightednoncontrast MRI of the lumbar spine was performed on the 1.5 Rosario magnet. FINDINGS: ALIGNMENT AND GENERAL ASSESSMENT: Five lumbar type vertebral bodies are assumed for purpose of this dictation with conus medullaris termination at L1-L2. Mild to moderately degenerated discs throughout the lumbar spine. No spinal cord signal normality. Abdominal aortic aneurysm measuring up to 7.3 cm, partially imaged. Grade 1 retrolisthesis of L2 on L3. STIR hyperintensity in the inferior L1 endplate, and in the superior L3 endplate related to Schmorl's node. T2 hyperintense renal cysts, partially imaged. DISC SPACES: L1-L2: Symmetric disc bulge without foraminal or canal stenosis. L2-L3: Symmetric disc bulge and facet arthropathy causing moderate to severe spinal canal stenosis with clumping of the cauda equina nerve roots and severe bilateral foraminal stenosis L3-L4: Symmetric disc bulge and facet arthropathy causing severe spinal canal stenosis with clumping of the cauda equina nerve roots and mild bilateral neural foraminal stenosis bilaterally L4-L5: Right asymmetric disc bulge with right subarticular disc extrusion with superior displacement contacting the right descending L5 nerve root (series 7 image 24). Severe spinal canal stenosis with clumping of the cauda equina nerve roots and moderate right and mild left foraminal stenosis PAGE 1 Signed Report (CONTINUED) FAX: Yimi Ga MD [phone] [place]: St: [facility] -- Name: ALLYSSA MATIAS [facility] [place] : 1940 Age/S: 80/M [address] [place] [address] Unit #: [id number] Loc: [place] [address] Phys: Yimi Dykes MD Acct: [id number] Dis Date: Status: DEP CLI PHONE #: [phone] Exam Date: 08/30/2020 1601 FAX #: [phone] Reason: LOWER BACK PAIN RADIATING DOWN RIGHT LEG EXAMS: CPT CODE: [id number] MRI L-SPINE W/O CONT 33581 (Continued) L5-S1: Central disc protrusion with annular fissure. IMPRESSION: 1. Severe degenerative spinal canal stenosis at L3-L4 and L4-L5 with clumping of the cauda equina nerve roots. 2. Moderate to severe degenerative spinal canal stenosis with clumping of cauda equina nerve roots at L2-L3. 3. Right subarticular disc extrusion at L4-L5 contacting the descending right L5 nerve root. 4. Severe degenerative neural foraminalstenosis at the bilateral L2- L3 level. 4. Grade 1 anterolisthesis of L4-L5. 5. Degenerative edema inthe inferior L1 and superior L3 endplates. 6. Abdominal aortic aneurysm measuring up to 7.5 cm in diameter, partially imaged. Consider CTA chest and pelvis for further evaluation. Findings discussed with Dr. Sharma at 10:17 AM 08/31/2020 by telephone. SL: [id number] at 1018 Reported and signed by: Logan Arceo M.D. CC: Yimi Dykes Technologist: RT Juliocesar(Jakob)(MR) Trnscrd Date/Time/By: 08/31/2020 (3434) : By: [email or web address]/[email or web address] Print D/T: S: 08/31/2020 (6401) PAGE 2 Signed Report Notes Date/Time Note Provider Source 2020-10-10 08:47:00-00:00 [id number] [address] PATIENT NAME: ALLYSSA MATIAS ADMIT DATE: 10/05 ACCOUNT NO: [id number] [place] [facility] [place] 80 REPORT TYPE: eECHOCARDIOGRAM REPORT SEX: M ADMITTING PHYSICIAN:Adis Man MD ATTENDING PHYSICIAN:Adis Man MD Exam Date: 10/06/2020 17:48:00 Exam Type: Transthoracic Echocardiogram Indication: A-FIB,PRE-OP BP: 146/84 HR: 84 Measurements Name Value Normal Range IVSd (2D) 1.57 cm (0.6 - 1.1) LVPWd (2D) 1.46 cm (0.6 - 1.1) LVIDd (2D) 5.6 cm (3.5 - 5.6) LVIDs (2D) 4.38 cm (2.1 - 4) LV FS (2D) 21.76 % - EF Teichholz (2D) 43.5 % (50 - 90) Ao root diameter (2D) 3.76 cm (2 - 3.7) Name Value Normal Range LA ESV SP 4CH (A/L) 114.49 ml - LA ESV SP 2CH (A/L) 63.72 ml - LA ESV BP (A/L) 88.94 ml - LA ESV SP 4CH (MOD) 108 ml - LA ESV SP 2CH (MOD) 61.7 ml - Name Value Normal Range MV E-wave Vmax 0.96 m/sec - MV deceleration time 107.34 msec - MV A-wave Vmax 0.38 m/sec - MV E:A ratio 2.54 ratio - Name Value Normal Range AV Vmax 1.51 m/sec - AV VTI 18.75 cm - AV peak gradient 5.98 mmHg - AV mean gradient 2.47 mmHg - LVOT diameter 2.52 cm (1.8 - 2.2) LVOT Vmax 1.15 m/sec - LVOT VTI 16.25 cm - LVOT peak gradient 5.25 mmHg - LVOT mean gradient 2.82 mmHg - SV LVOT 81.3 ml - PATIENT NAME: ALLYSSA MATIAS [id number] CO LVOT 9.15 l/min - MARIN (continuity Vmax) 3.8 cm2 - MARIN (continuity VTI) 4.34 cm2 - Name Value Normal Range TV E-wave Vmax 0.51 m/sec - TR Vmax 2.61 m/sec - TR peak gradient 27.18 mmHg - RAP 10 mmHg - RVSP 37.18 mmHg (15 - 30) PAP 37.1 mmHg - Name Value Normal Range PV Vmax 1.06 m/sec - PV peak gradient 4.51 mmHg - RVOT Vmax 1 m/sec - RVOT peak gradient 4.02 mmHg - Findings Left Ventricle: The left ventricular chamber size is normal. Mil d concentric left ventricular hypertrophy is observed. There is sl ightly decreased left ventricular systolic function. The estimated eje ction fraction is 45%. Normal left ventricular diastolic filling is obs erved. Left Atrium: The left atrium is moderately dilated. Right Ventricle: The right ventricular cavity size is normal. The right ventricular global systolic function is normal. Right Atrium: The right atrial cavity size is normal. Aortic Valve: The aortic valve leaflets are mildly thickened. There is a trace of aortic insufficiency. Mitral Valve: There is mild mitral valve prolapse. There is mi ld mitral regurgitation observed. Tricuspid Valve: The tricuspid valve leaflets are morphologically normal. There is mild tricuspid regurgitation. There is evidence of mi ld pulmonary hypertension. The pulmonary artery pressure is e stimated at 37.1 mmHg. Pulmonic Valve: The pulmonic valve appears normal. There is mild pulmonic regurgitation present. Pericardium: There is no pericardial effusion. PATIENT NAME: ALLYSSA MATIAS [id number] Conclusions 1. Mildly decreased left ventricular systolic fu nction with global hypokinesis 2. Mild mitral valve regurgitation. 3. Mild tricuspid valve regurgitation. 4. Evidence of mild pulmonary artery hypertensio n. at 0852 PATIENT NAME: ALLYSSA MATIAS [id number] 2022-01-22 13:36:00-00:00 [facility] Cardiothoracic Surgery Prog REPORT#:[id number] REPORT STATUS: Signed DATE:10/07/20 TIME: 1336 PATIENT: ALLYSSA MATIAS UNIT #: [id number] ROOM/BED: 2202-1 : 42 AGE: 80 SEX: M ATTEND: Adis Man MD ADM AUTHOR: Dayna Brandt * ALL edits or amendments must be made on the Trending Taste/[employer]urater document * General Post-op: day 1 Status post: 1. Bilateral femoral artery cutdown. 2. Endovascular repair of infrarenal abdominal a ortic aneurysm. 3. Repair of bilateral common femoral artery. Subjective Chief Complaint: F/U AAA repair Review of Systems Constitutional: Denies: fever, malaise. Respiratory: Denies: hemoptysis, SOB. GI: Denies: abdominal pain, nausea, vomiting. Heme: Denies: bleeding. Neuro: Denies: dizziness, headache, lightheaded. Objective General VS/I O Vital Signs Date Temp Pulse Resp B/P B/P Mean Pulse Ox FiO2 10/06-10/07 97.6-98.2 77-120 12-39 116-172/47-9 0 66-114 90-96 Last Documented: Result Date Time Pulse Ox 95 10/07 0901 B/P 135/76 10/07 0901 B/P Mean 98 10/07 0901 Pulse 81 10/07 0901 Resp 19 10/07 0901 Temp 97.8 10/07 0400 O2 Delivery Room air 10/06 1999 O2 Flow Rate 4 10/06 1101 24 hour I O ending at 0700: 10/07 0700 10/06 1900 Intake Total 1100.00 833.00 Output Total 410 625 Balance 690.00 208.00 Intake, IV 350.00 113.00 Intake, Oral 750 720 Output, Urine 410 625 PATIENT WEIGHT: Weight (lb): Weight (oz): Weight (kg): 115.909 Physical Exam General appearance: alert, oriented, mental stat us normal, no respiratory distress Wound/incision: Location: bilateral groins Site condition: dressing intact Neck: supple/no meningismus Cardiovascular: normal heart sounds, regular rat e rhythm Respiratory: aerating well, symmetric expansion, no distress Abdomen: soft, non-tender, no distention Extremities: moves all Neuro/ALTERATIONS SEWER: alert, oriented X 3, normal speech, n o motor deficits Psychiatry: normal affect, normal mood Current Medications Medications: Active Meds + DC'd Last 24 Hrs Sodium Biphosphate/Sodium Phosphate 1 ENEMA ONCE ONE RECTAL (DC) Levothyroxine Sodium 200 MCG DAILY 0600 PO (DCD) Magnesium Sulfate 100 ML ONCE ONE IV (DC) Potassium Chloride 40 MEQ ONCE ONE PO (DC) Potassium Phosphate 20 MM ONCE ONE IV (DC) Sodium Chloride 250 ML Bisacodyl 10 MG ONCE ONE RECTAL (DC) Acetaminophen 650 MG Q4H PRN PRN PO (DCD) Hydralazine HCl 10 MG Q6H PRN PRN IV (DCD) Hydrocodone Bitart/Acetaminophen 1 TAB Q4H PRN P RN PO (DCD) Hydrocodone Bitart/Acetaminophen 1 TAB Q4H PRN P RN PO (DCD) Amlodipine Besylate 10 MG DAILY PO (DCD) Ondansetron HCl 4 MG Q4H PRN PRN IV (DCD) Temazepam 15 MG BEDTIME PRN PRN PO (DCD) Results Findings/Data: Laboratory Tests 10/07 035 Chemistry Sodium (134 - 147 mEq/L) 136 Potassium (3.4 - 5.0 mEq/L) 3.8 Chloride (100 - 108 mEq/L) 103 Carbon Dioxide (21 - 33 mEq/l) 26 Anion Gap (0 - 20) 11 BUN (7 - 18 mg/dL) 20 H Creatinine (0.6 - 1.3 mg/dL) 1.0 Glomerular Filtr Rate (70 - 80) 72.3 Glucose (70 - 110 mg/dL) 138 H Calcium (8.0 - 10.5 mg/dL) 9.2 Laboratory Tests 10/07 0355 Hematology WBC (4.5 - 11.0 x10 3/uL) 10.5 RBC (4.00 - 5.60 x10 6/uL) 4.49 Hgb (12.5 - 16.9 g/dL) 14.3 Hct (37.5 - 50.7 %) 43.2 MCV (81.0 - 99.0 fL) 96.2 MCH (27.0 - 33.0 pg) 31.8 MCHC (33.0 - 37.0 g/dL) 33.1 RDW (11.5 - 14.5 %) 13.8 Plt Count (150 - 400 x10 3/uL) 180 MPV (7.0 - 9.0 fL) 11.3 H Neut % (Auto) (56.0 - 77.0 %) 80.1 H Lymph % (Auto) (14.0 - 32.0 %) 10.2 L [place] % (Auto) (4.8 - 9.0 %) 9.1 H Eos % (Auto) (0.3 - 3.7 %) 0.0 L Baso % (Auto) (0.0 - 2.0 %) 0.1 Neut # (Auto) (2.0 - 7.6 x10 3/uL) 8.41 H Lymph # (Auto) (1.0 - 3.8 x10 3/uL) 1.07 [place] # (Auto) (0.1 - 0.8 x10 3/uL) 0.95 H Eos # (Auto) (0.0 - 0.2 x10 3/uL) 0.00 Baso # (Auto) (0.0 - 0.2 x10 3/uL) 0.01 Abs Immat Gran (auto) (0.00 - 0.03 x10 3/uL) 0. 05 H Add Manual Diff NO Immature Gran % (0.0 - 2.0 %) 0.5 Nucleated RBC % (0 - 0 %) 0.0 Nucleated RBCs # (Man) (0.0 - 0.1 x10 3/uL) 0.0 0 Diagnosis, Assessment Plan Hospital course to date: Mr. Matias is a 80-year-old male with past medical history significant for hypertension, bladder ca ncer (status post BCG treatment 2005), atrial fibrillation (cardioversion 2015) , sleep apnea, lower extremity chronic venous insufficiency (status post BLE ab lations), who went to see his PCP with complaints of back that radiated to R leg. Work up included an MRI of lumbar spin which revealed an incidental finding of abd ominal aortic aneurysm. Subsequent CTA of chest showed a 6.9 cm infraren al abdominal aortic aneurysm. Patient was also found to have a 4.6 ascending a ortic aneurysm. Patient was referred to CV surgery for evaluation Patient continues to have back and abdom inal pain. He was seen and examined by Dr. Pereyra. CTA has been reviewed. In v iew of 6.9 infrarenal abdominal aortic aneurysm and risk of rupture, endovascular repai r of the aneurysm has been recommended. The procedure, risk involved, benefits, alternatives and potential complictions were discussed at length with the p atient. He acknowledges understanding and would like to proceed with surgery. We have scheduled him for endovascular repair of abdominal aortic aneurysm tomorrow. As far as the 4.6 ascending aortic aneurysm, Dr. Pereyra recommend ed conservative management. 10/06 S/p 1. Bilateral femoral artery cutdown. 2. Endovascular repair of infrarenal abdominal a ortic aneurysm. 3. Repair of bilateral common femoral artery. 10/07 POD 1 No postoperative complications Ananth groin soft, nontender no hematoma Discontinue A line and Green catheter No bowel movement yet, will give suppository Okay to discharge home today. Follow up in clini c in 1-2 weeks Patient seen, examined and plan reviewed with Dr Doug Pereyra at 1649 RPT #:[id number] END OF REPORT 2020-10-07 13:36:00-00:00 [facility] Cardiothoracic Surgery Prog REPORT#:[id number] REPORT STATUS: Signed DATE:10/07/20 TIME: 1336 PATIENT: ALLYSSA MATIAS UNIT #: [id number] ROOM/BED: [place] [address] : 42 AGE: 80 SEX: M ATTEND: Adis Man MD ADM AUTHOR: Dayna Brandt * ALL edits or amendments must be made on the Trending Taste/computer document * General Post-op: day 1 Status post: 1. Bilateral femoral artery cutdown. 2. Endovascular repair of infrarenal abdominal a ortic aneurysm. 3. Repair of bilateral common femoral artery. Subjective Chief Complaint: F/U AAA repair Review of Systems Constitutional: Denies: fever, malaise. Respiratory: Denies: hemoptysis, SOB. GI: Denies: abdominal pain, nausea, vomiting. Heme: Denies: bleeding. Neuro: Denies: dizziness, headache, lightheaded. Objective General VS/I O Vital Signs Date Temp Pulse Resp B/P B/P Mean Pulse Ox FiO2 10/06-10/07 97.6-98.2 77-120 12-39 116-172/47-9 0 66-114 90-96 Last Documented: Result Date Time Pulse Ox 95 10/07 900 B/P 135/76 10/07 900 B/P Mean 98 10/07 09 Pulse 81 10/07 900 Resp 19 10/07 900 Temp 97.8 10/07 0400 O2 Delivery Room air 10/06 2000 O2 Flow Rate 4 10/06 1101 24 hour I O ending at 0700: 10/07 0700 10/06 1900 Intake Total 1100.00 833.00 Output Total 410 625 Balance 690.00 208.00 Intake, IV 350.00 113.00 Intake, Oral 750 720 Output, Urine 410 625 PATIENT WEIGHT: Weight (lb): Weight (oz): Weight (kg): 115.909 Physical Exam General appearance: alert, oriented, mental stat us normal, no respiratory distress Wound/incision: Location: bilateral groins Site condition: dressing intact Neck: supple/no meningismus Cardiovascular: normal heart sounds, regular rat e rhythm Respiratory: aerating well, symmetric expansion, no distress Abdomen: soft, non-tender, no distention Extremities: moves all Neuro/ALTERATIONS SEWER: alert, oriented X 3, normal speech, n o motor deficits Psychiatry: normal affect, normal mood Current Medications Medications: Active Meds + DC'd Last 24 Hrs Sodium Biphosphate/Sodium Phosphate 1 ENEMA ONCE ONE RECTAL (DC) Levothyroxine Sodium 200 MCG DAILY 0600 PO (DCD) Magnesium Sulfate 100 ML ONCE ONE IV (DC) Potassium Chloride 40 MEQ ONCE ONE PO (DC) Potassium Phosphate 20 MM ONCE ONE IV (DC) Sodium Chloride 250 ML Bisacodyl 10 MG ONCE ONE RECTAL (DC) Acetaminophen 650 MG Q4H PRN PRN PO (DCD) Hydralazine HCl 10 MG Q6H PRN PRN IV (DCD) Hydrocodone Bitart/Acetaminophen 1 TAB Q4H PRN P RN PO (DCD) Hydrocodone Bitart/Acetaminophen 1 TAB Q4H PRN P RN PO (DCD) Amlodipine Besylate 10 MG DAILY PO (DCD) Ondansetron HCl 4 MG Q4H PRN PRN IV (DCD) Temazepam 15 MG BEDTIME PRN PRN PO (DCD) Results Findings/Data: Laboratory Tests 10/07 354 Chemistry Sodium (134 - 147 mEq/L) 136 Potassium (3.4 - 5.0 mEq/L) 3.8 Chloride (100 - 108 mEq/L) 103 Carbon Dioxide (21 - 33 mEq/l) 26 Anion Gap (0 - 20) 11 BUN (7 - 18 mg/dL) 20 H Creatinine (0.6 - 1.3 mg/dL) 1.0 Glomerular Filtr Rate (70 - 80) 72.3 Glucose (70 - 110 mg/dL) 138 H Calcium (8.0 - 10.5 mg/dL) 9.2 Laboratory Tests 10/07 354 Hematology WBC (4.5 - 11.0 x10 3/uL) 10.5 RBC (4.00 - 5.60 x10 6/uL) 4.49 Hgb (12.5 - 16.9 g/dL) 14.3 Hct (37.5 - 50.7 %) 43.2 MCV (81.0 - 99.0 fL) 96.2 MCH (27.0 - 33.0 pg) 31.8 MCHC (33.0 - 37.0 g/dL) 33.1 RDW (11.5 - 14.5 %) 13.8 Plt Count (150 - 400 x10 3/uL) 180 MPV (7.0 - 9.0 fL) 11.3 H Neut % (Auto) (56.0 - 77.0 %) 80.1 H Lymph % (Auto) (14.0 - 32.0 %) 10.2 L [place] % (Auto) (4.8 - 9.0 %) 9.1 H Eos % (Auto) (0.3 - 3.7 %) 0.0 L Baso % (Auto) (0.0 - 2.0 %) 0.1 Neut # (Auto) (2.0 - 7.6 x10 3/uL) 8.41 H Lymph # (Auto) (1.0 - 3.8 x10 3/uL) 1.07 [place] # (Auto) (0.1 - 0.8 x10 3/uL) 0.95 H Eos # (Auto) (0.0 - 0.2 x10 3/uL) 0.00 Baso # (Auto) (0.0 - 0.2 x10 3/uL) 0.01 Abs Immat Gran (auto) (0.00 - 0.03 x10 3/uL) 0. 05 H Add Manual Diff NO Immature Gran % (0.0 - 2.0 %) 0.5 Nucleated RBC % (0 - 0 %) 0.0 Nucleated RBCs # (Man) (0.0 - 0.1 x10 3/uL) 0.0 0 Diagnosis, Assessment Plan Hospital course to date: Mr. Matias is a 80-year-old male with past medical history significant for hypertension, bladder ca ncer (status post BCG treatment 2005), atrial fibrillation (cardioversion 2015) , sleep apnea, lower extremity chronic venous insufficiency (status post BLE ab lations), who went to see his PCP with complaints of back that radiated to R leg. Work up included an MRI of lumbar spin which revealed an incidental finding of abd ominal aortic aneurysm. Subsequent CTA of chest showed a 6.9 cm infraren al abdominal aortic aneurysm. Patient was also found to have a 4.6 ascending a ortic aneurysm. Patient was referred to CV surgery for evaluation Patient continues to have back and abdom inal pain. He was seen and examined by Dr. Pereyra. CTA has been reviewed. In v iew of 6.9 infrarenal abdominal aortic aneurysm and risk of rupture, endovascular repai r of the aneurysm has been recommended. The procedure, risk involved, benefits, alternatives and potential complictions were discussed at length with the p atient. He acknowledges understanding and would like to proceed with surgery. We have scheduled him for endovascular repair of abdominal aortic aneurysm tomorrow. As far as the 4.6 ascending aortic aneurysm, Dr. Pereyra recommend ed conservative management. 10/06 S/p 1. Bilateral femoral artery cutdown. 2. Endovascular repair of infrarenal abdominal a ortic aneurysm. 3. Repair of bilateral common femoral artery. 10/07 POD 1 No postoperative complications Ananht groin soft, nontender no hematoma Discontinue A line and Green catheter No bowel movement yet, will give suppository Okay to discharge home today. Follow up in clini c in 1-2 weeks Patient seen, examined and plan reviewed with Dr Doug Pereyra at 1649 at 1444 RPT #:[id number] END OF REPORT 2020-10-06 16:33:00-00:00 [id number] [address] PATIENT NAME: ALLYSSA MATIAS ADMIT DATE: 10/05 ACCOUNT NO: [id number] ROOM NO: G2202 AGE: 80 REPORT TYPE: OPERATIVE REPORT SEX: M ADMITTING PHYSICIAN:Adis Man MD ATTENDING PHYSICIAN:Adis Man MD OPERATION DATE: 10/06/2020 PREOPERATIVE DIAGNOSIS: Infrarenal abdominal aor tic aneurysm. POSTOPERATIVE DIAGNOSIS: Infrarenal abdominal a ortic aneurysm. PROCEDURE: Endovascular repair of abdominal aort ic aneurysm using [place] graft. SURGEON: Stevo Pereyra MD CO-SURGEON: Juanis Nguyen MD DRESSER TENDER: ANESTHESIA: PROCEDURE IN DETAIL: Please refer to the operative note by Dr. Nato Pereyra. I assisted Dr. Roddy curran all the critical portions of the surgery including bilateral arterial exposure, deployment of the g raft. Dictated By: Juanis Nguyen MD WT: OP:RAVI/CHRISTA/NETTE Conf#: [id number]#: [id number] Authenticated by Juanis Nguyen MD, FACS On 0 10/10/2020 01:08:39 PM at 1308 PATIENT NAME: ALLYSSA MATIAS [id number] 4395-01-21 13:49:00-00:00 [facility] ([facility] Critical Care Consult Note REPORT#:[id number] REPORT STATUS: Signed DATE:10/06/20 TIME: 1349 PATIENT: ALLYSSA MATIAS UNIT #: [id number] ROOM/BED: [place] [address] : 42 AGE: 80 SEX: M ATTEND: Adis Man MD ADM AUTHOR: Regino Astorga MD * ALL edits or amendments must be made on the el ectronic/computer document * History of Present Illness HPI Requesting clinician: Dr. Pereyra Reason for consult: postop management Chief complaint: AAA HPI: 80/M with h/o HTN, afib s/p CV, SA, LE v enous insufficiency and bladder CA s/p BCG, who p/w abd pain and found to have infraren al AAA of 6.9 cm. Pt went for EVAR today on 10/06/2020. He was admitted to CVICU postop for further management. He is slightly confused but complains of pain at surgery site. History - Adult longitudinal Past medical history: Reports: Atrial fib/flutter, Cancer (Bladder), H ypertension, Abdominal aortic aneurysm. Additional medical history: CBP Past surgical history: Reports: Bladder surgery. Additional surgical history: Cardioversion Additional family history: Mother: 72 years, natural causes Father: , heart disease, hypertension C KD, AAA RUPTURE Sister: Bladder cancer, hypertension, kidney di sease, diabetes Alcohol use: Denies EtOH use Drug use: Denies recreational drugs Smoking status for patients 13 years old or olde r: Never Smoker Other social history: Local resident Allergies: Coded Allergies: No Known Drug Allergies (10/05/20) Occupation: retired Ambulatory status: Independent Review of Systems All systems rev neg: except as marked (groins pa in) Objective Physical Exam VS/I O: Last Documented: Result Date Time Pulse Ox 96 10/06 1327 B/P 131/67 10/06 1327 B/P Mean 86 10/06 1327 Pulse 62 10/06 1327 Resp 0 10/06 1246 Temp 97.0 10/06 1130 O2 Delivery Nasal cannula 10/06 1055 O2 Flow Rate 4 10/06 1055 24 hour I O ending at 0700: 10/06 0700 10/05 1900 Intake Total Output Total Balance Patient 115.909 kg Weight Weight Bed scale Measurement Method PATIENT WEIGHT: Weight (lb): Weight (oz): Weight (kg): 115.909 Medications: Active Meds + DC'd Last 24 Hrs Levothyroxine Sodium 200 MCG DAILY 0600 PO Acetaminophen 650 MG Q4H PRN PRN PO Fentanyl Citrate 25 MCG ONCE ONE IV (DC) Hydralazine HCl 10 MG Q6H PRN PRN IV Hydrocodone Bitart/Acetaminophen 1 TAB Q4H PRN P RN PO Hydrocodone Bitart/Acetaminophen 1 TAB Q4H PRN P RN PO Hydralazine HCl 10 MG Q6H PRN PRN IV (DC) Hydrocodone Bitart/Acetaminophen 1 TAB Q4H PRN P RN PO (DC) Hydrocodone Bitart/Acetaminophen 1 TAB Q4H PRN P RN PO (DC) Glycopyrrolate 0 .STK-MED ONE .ROUTE (DC) Neostigmine Methylsulfate 0 .STK-MED ONE .ROUTE (DC) Heparin Sodium 0 .STK-MED ONE .ROUTE (DC) Rocuronium [place] 0 .STK-MED ONE IV (DC) Phenylephrine HCl 0 .STK-MED ONE I-BENIGNO (DC) Fentanyl Citrate 100 MCG PACU Q10MIN PRN PRN IV (DC) Fentanyl Citrate 50 MCG PACU Q10MIN PRN PRN IV ( DC) Hydralazine HCl 2 MG PACU Q10MIN PRN PRN IV (DC) Hydrocodone Bitart/Acetaminophen 1 TAB PACU ONCE PO (DC) Hydromorphone HCl 1 MG PACU Q10MIN PRN PRN IV (D C) Hydromorphone HCl 0.5 MG PACU Q5MIN PRN PRN IV ( DC) Insulin Human Lispro 0 PACU ONCE PRN SUBQ (DC) Labetalol HCl 5 MG PACU Q10MIN PRN PRN IV (DC) Meperidine HCl 12.5 MG PACU ONCE PRN IV (DC) Morphine Sulfate 2 MG PACU Q10MIN PRN PRN IV (DC ) Ondansetron HCl 4 MG PACU ONCE PRN IV (DC) Ropivacaine 150 MG ASDIR PRN LOCAL (DC) Tramadol HCl 50 MG PACU ONCE PO (DC) Heparin Sodium 0 .STK-MED ONE .ROUTE (DC) Phenylephrine HCl 250 ML .STK-MED ONE IV (DC) Dexamethasone Sodium Phosphate 0 .STK-MED ONE .R OUTE (DC) Lidocaine HCl 0 .STK-MED ONE .ROUTE (DC) Ondansetron HCl 0 .STK-MED ONE .ROUTE (DC) Rocuronium [place] 0 .STK-MED ONE IV (DC) Fentanyl Citrate 0 .STK-MED ONE .ROUTE (DC) Midazolam HCl 0 .STK-MED ONE .ROUTE (DC) Propofol 20 ML .STK-MED ONE IV (DC) Heparin Sodium 0 .STK-MED ONE .ROUTE (DC) Heparin Sodium 0 .STK-MED ONE .ROUTE (DC) Lidocaine HCl 0 .STK-MED ONE .ROUTE (DC) Cefazolin Sodium 0 .STK-MED ONE .ROUTE (DC) Cefazolin Sodium 3 GM PREOP ONCE IV (DC) Sodium Chloride 100 ML Amlodipine Besylate 10 MG DAILY PO Labetalol HCl 10 MG Q6H PRN PRN IV (DC) Potassium Chloride/Dextrose/Sod Cl 1,000 ML .Q13 H20M IV (DC) Acetaminophen 650 MG Q4H PRN PRN PO (DC) Hydrocodone Bitart/Acetaminophen 1 TAB Q6H PRN P RN PO (DC) Morphine Sulfate 4 MG Q4H PRN PRN IV (DC) Ondansetron HCl 4 MG Q4H PRN PRN IV Temazepam 15 MG BEDTIME PRN PRN PO Acetaminophen 650 MG Q4H PRN PRN PO (DC) Hydrocodone Bitart/Acetaminophen 1 TAB Q4H PRN P RN PO (DC) Morphine Sulfate 4 MG Q4H PRN PRN IV (DC) Ondansetron HCl 4 MG Q6H PRN PRN IV (DC) Iopamidol 100 ML .STK-MED ONE IV (DC) Sodium Chloride 0 ASDIR PRN IV (DC) Results Findings/Data: Laboratory Tests 10/06/20 1250: [Embedded Image Not Available] 10/06/20 0515: [Embedded Image Not Available] 10/05/20 1440: [Embedded Image Not Available] Laboratory Tests 10/06 10/06 10/06 10/05 1250 1250 0515 1440 Chemistry Sodium (134 - 147 mEq/L) 137 139 Potassium (3.4 - 5.0 mEq/L) 3.7 3.5 Chloride (100 - 108 mEq/L) 107 104 Carbon Dioxide (21 - 33 mEq/l) 25 28 Anion Gap (0 - 20) 9 10 BUN (7 - 18 mg/dL) 18 18 Creatinine (0.6 - 1.3 mg/dL) 0.9 1.0 Glomerular Filtr Rate (70 - 80) 81.6 H 72.3 Glucose (70 - 110 mg/dL) 150 H 112 H Lactic Acid (0.4 - 1.9 mmol/L) 1.0 Calcium (8.0 - 10.5 mg/dL) 9.4 9.0 Ionized Calcium Stephane (1.12 - 1.32 MMOL/L) 1.19 Phosphorus (2.5 - 4.9 MG/DL) 2.4 L Magnesium (1.80 - 2.40 mg/dL) 1.71 L Total Bilirubin (0.0 - 1.0 mg/dL) 0.70 0.80 AST (15 - 37 IUnit/L) 26 28 ALT (30 - 65 IUnit/L) 18 L 17 L Total Alk Phosphatase (20 - 125 IUnit/L) 69 74 Total Protein (6.4 - 8.2 g/dL) 6.9 7.6 Albumin (3.4 - 5.0 g/dL) 3.40 3.80 Triglycerides (40 - 150 mg/dL) 83 Cholesterol (<200 mg/dL) 165 LDL Cholesterol [place] (0 - 100 mg/dL) 117.7 H 113.1 H HDL Cholesterol (32 - 72 mg/dL) 47.5 Cholesterol/HDL Ratio (3.43 - 4.97 RATIO) 3.47 TSH (0.42 - 5.47 IU/mL) 0.83 20 1440 Chemistry Sodium (134 - 147 mEq/L) 140 Potassium (3.4 - 5.0 mEq/L) 3.4 Chloride (100 - 108 mEq/L) 106 Carbon Dioxide (21 - 33 mEq/l) 28 Anion Gap (0 - 20) 9 BUN (7 - 18 mg/dL) 18 Creatinine (0.6 - 1.3 mg/dL) 1.1 Glomerular Filtr Rate (70 - 80) 64.7 L Glucose (70 - 110 mg/dL) 97 Calcium (8.0 - 10.5 mg/dL) 9.6 Total Bilirubin (0.0 - 1.0 mg/dL) 0.80 AST (15 - 37 IUnit/L) 28 ALT (30 - 65 IUnit/L) 19 L Total Alk Phosphatase (20 - 125 IUnit/L) 75 Troponin I (0.000 - 0.045 ng/mL) 0.135 H Total Protein (6.4 - 8.2 g/dL) 7.1 Albumin (3.4 - 5.0 g/dL) 3.90 Lipase (13 - 57 U/L) 42 Laboratory Tests 10/06 10/06 10/06 10/06 1250 0908 0819 0515 Coagulation INR (0.8 - 1.2) 1.4 H 1.3 H PT Patient/Control Mix (9.3 - 12.9 SECONDS) 14. 9 H 13.9 H Activated Coag Time (74 - 137 SEC) 219 H 268 H 10/06 0515 Coagulation PTT (Lexi) (25.0 - 39.5 Seconds) 37.2 Laboratory Tests 10/06 10/06 10/05 1250 0515 1440 Hematology WBC (4.5 - 11.0 x10 3/uL) 6.8 5.6 6.4 RBC (4.00 - 5.60 x10 6/uL) 4.58 4.86 4.76 Hgb (12.5 - 16.9 g/dL) 14.9 15.7 15.5 Hct (37.5 - 50.7 %) 43.9 47.3 46.6 MCV (81.0 - 99.0 fL) 95.9 97.3 97.9 MCH (27.0 - 33.0 pg) 32.5 32.3 32.6 MCHC (33.0 - 37.0 g/dL) 33.9 33.2 33.3 RDW (11.5 - 14.5 %) 14.0 13.9 14.2 Plt Count (150 - 400 x10 3/uL) 165 181 182 MPV (7.0 - 9.0 fL) 11.2 H 10.6 H 11.0 H Neut % (Auto) (56.0 - 77.0 %) 85.3 H 54.8 L 63. 6 Lymph % (Auto) (14.0 - 32.0 %) 11.3 L 30.1 23.9 [place] % (Auto) (4.8 - 9.0 %) 2.4 L 11.2 H 9.8 H Eos % (Auto) (0.3 - 3.7 %) 0.1 L 2.8 1.6 Baso % (Auto) (0.0 - 2.0 %) 0.3 0.7 0.6 Neut # (Auto) (2.0 - 7.6 x10 3/uL) 5.76 3.09 4. 07 Lymph # (Auto) (1.0 - 3.8 x10 3/uL) 0.76 L 1.7 0 1.53 [place] # (Auto) (0.1 - 0.8 x10 3/uL) 0.16 0.63 0. 63 Eos # (Auto) (0.0 - 0.2 x10 3/uL) 0.01 0.16 0.1 0 Baso # (Auto) (0.0 - 0.2 x10 3/uL) 0.02 0.04 0. 04 Abs Immat Gran (auto) (0.00 - 0.03 x10 3/uL) 0. 04 H 0.02 0.03 Add Manual Diff NO NO NO Immature Gran % (0.0 - 2.0 %) 0.6 0.4 0.5 Nucleated RBC % (0 - 0 %) 0.0 0.0 0.0 Nucleated RBCs # (Man) (0.0 - 0.1 x10 3/uL) 0.0 0 0.00 0.00 Laboratory Tests 10/05 1631 Serology SARS-CoV-2 Ag (Rapid) (Negative) Negative Laboratory Tests 10/05 1700 Urines Urine Color (YEL/STRAW) STRAW Urine Appearance (CLEAR) CLEAR Urine pH (5.0 - 7.0) 7.0 Ur Specific [place] (1.005 - 1.030) 1.021 Urine Protein (NEGATIVE) NEGATIVE Urine Glucose (UA) (NEGATIVE) NEGATIVE Urine Ketones (NEGATIVE) TRACE H Urine Blood (NEGATIVE) NEGATIVE Urine Nitrite (NEGATIVE) NEGATIVE Urine Bilirubin (NEGATIVE) NEGATIVE Urine Urobilinogen (0.2 - 1.0 mg/dL) 0.2 Ur Leukocyte Esterase (NEGATIVE) NEGATIVE Urine RBC (0 - 3 RBC/HPF) 0-3 Urine WBC (0 - 3 WBC/HPF) 0-3 Ur Squamous Epith Cells (NONE SEEN /HPF) NONE S EEN Urine Bacteria (NONE SEEN /HPF) NONE SEEN Urine Mucus (NONE SEEN /LPF) TRACE Radiology data: Recent Impressions: CAT SCAN - CTA ABD PEL W CONT 10/05 1543 Report Impression - Status: SIGNED Entered: 10/05/2020 1630 IMPRESSION: 1. Grossly stable aortic root/ascending aortic a neurysm accounting for measurement error. 2. Grossly stable fusiform infrarenal abdominal aortic aneurysm without rupture. 3. 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 4. Patent celiac, mesenteric and renal arterial circulation. 5. 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 6. Cardiomegaly with severe coronary atheroscler osis. 7. No abnormal solid organ enhancement. 8. Left simple renal cyst. SL: [id number] Impression By: Elie tolentino M.D. CAT SCAN - CT ANGIO CHEST 10/05 1543 Report Impression - Status: SIGNED Entered: 10/05/2020 1630 IMPRESSION: 1. Grossly stable aortic root/ascending aortic a neurysm accounting for measurement error. 2. Grossly stable fusiform infrarenal abdominal aortic aneurysm without rupture. 3. 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 4. Patent celiac, mesenteric and renal arterial circulation. 5. 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 6. Cardiomegaly with severe coronary atheroscler osis. 7. No abnormal solid organ enhancement. 8. Left simple renal cyst. SL: [id number] Impression By: Elie tolentino M.D. Free Text Obj Notes Free Text Obj Notes: General appearance: confused , no acute distress, conversational, no respiratory distress Head/Eyes: atraumatic, normocephalic ENT: moist mucosal membranes Neck: full range of motion, supple/no meningismu s Cardiovascular: normal capillary refill, normal heart sounds, regular rate and rhythm Respiratory: aerating well, symmetric expansion, no distress Abdomen: soft, non-tender, no distention, no gua rding, diastasis recti Genitourinary: green with urine Extremities: pedal pulses, moves all, no rmal capillary refill, normal range of motion, no clubbing Vascular pulse assessment: palpated: R posterior tibialis, L posterior tibi rhett, R dorsalis pedis, L dorsalis pedis. Musculoskeletal: normal inspection, no muscle sp asm Neuro/ALTERATIONS SEWER: CNII-XII intact, no motor deficits Skin: dry, intact and clean bilateral groins, LE skin discoloration with chronic venous insufficiency changes Diagnosis, Assessment Plan Diagnosis, Assessment Plan Problem List/A P: 1. AAA (abdominal aortic aneurysm) without rupt ure 2. Abdominal pain Free Text A P: 80/M with h/o HTN, afib s/p CV, SA, LE v enous insufficiency and bladder CA s/p BCG, who p/w abd pain and found to have infraren al AAA of 6.9 cm. Pt went for EVAR today on 10/06/2020. Neuro: pain control as needed, minimize narcs Resp: sats well on NC, wean as tolerated CV: monitor hemodynamics, cont cardiac meds Renal: gentle hydration, monitor Cr/UOP GI: oral diet, BR, replete hypoMg/K/Phos ID: no ID issues, given periop Abx Hem: Hgb, groin and vascular checks Endo: BG checks/control, on synthroid Misc: OOB as tolerated, DVT ppx further care per primary ICC is available as needed Plan discussed with: patient, interdisc care aaron orlando, patient care team, nurse Critical care time: Minutes: 45 Electronically Signed by Regino Astorga MD on 09/17 11/06 at 2209 RPT #:[id number] END OF REPORT 2020-10-06 13:48:00-00:[address] [facility] ([facility]) Bedside Post Proc - Full REPORT#:[id number] REPORT STATUS: Signed DATE:10/06/20 TIME: 1348 PATIENT: ALLYSSA MATIAS UNIT #: [id number] ROOM/BED: 2- : 42 AGE: 80 SEX: M ATTEND: Adis Man MD ADM AUTHOR: Regino Astorga MD * ALL edits or amendments must be made on the el ectronic/computer document * Bedside Procedure Note Bedside Procedure Note Start date: 10/06/20 Start time: 1549 Pre-procedure diagnosis: AAA Post-procedure diagnosis: same Procedure performed: arterial line (left radial) Performed by: william nguyen Marketing Strategy Manager(s): none Anesthesia: local - lidocaine Technique/Procedure: In a sterile fashion and und er US guidance, left radial arterial line was placed , secured and dressed. Specimens removed/altered: none Implant(s): none Complications: none Estimated blood loss in ml's: 7 cc Findings: two attempts Electronically Signed by Regino Astorga MD on 09/17 11/06 at 2209 RPT #:[id number] END OF REPORT 2020-10-06 10:45:00-00:00 [facility] Hospitalist Progress Note REPORT#:[id number] REPORT STATUS: Signed DATE:10/06/20 TIME: 1045 PATIENT: ALLYSSA MATIAS UNIT #: [id number] ROOM/BED: [place] [address] : 42 AGE: 80 SEX: M ATTEND: Adis Man MD ADM AUTHOR: Adis Man MD * ALL edits or amendments must be made on the [employer] document * Subjective Chief Complaint: STILL IN OR/RR FROM EVR OF AAA Objective General VS/I O: Vital Signs: Date Time Temp Pulse Resp B/P B/P Pulse O2 O2 F low FiO2 Mean Ox Delivery Rate 10/06 1026 Nasal 4 cannula 10/06 1015 97.7 61 16 100/58 92 Simple 4 mask 10/06 1010 97.7 64 16 144/75 93 Simple 3 mask 10/06 1005 97.7 66 16 125/56 92 Simple 5 mask 10/06 1000 97.7 66 16 125/65 95 Simple 5 mask 10/06 0036 67 137/78 97 97 Nasal cannula 10/05 1635 50 16 146/84 104 95 Room air 10/05 1400 97.5 71 17 143/90 107 96 Room air 24 hour I O ending at 0700: 10/06 0700 10/05 1900 Intake Total Output Total Balance Patient 256 lb Weight Weight Bed scale Measurement Method PATIENT WEIGHT: Weight (lb): Weight (oz): Weight (kg): 115.909 Medications: Active Meds + DC'd Last 24 Hrs Hydralazine HCl 10 MG Q6H PRN PRN IV Hydrocodone Bitart/Acetaminophen 1 TAB Q4H PRN P RN PO Hydrocodone Bitart/Acetaminophen 1 TAB Q4H PRN P RN PO (UNV) Glycopyrrolate 0 .STK-MED ONE .ROUTE (DC) Neostigmine Methylsulfate 0 .STK-MED ONE .ROUTE (DC) Heparin Sodium 0 .STK-MED ONE .ROUTE (DC) Rocuronium [place] 0 .STK-MED ONE IV (DC) Phenylephrine HCl 0 .STK-MED ONE I-BENIGNO (DC) Fentanyl Citrate 100 MCG PACU Q10MIN PRN PRN IV Fentanyl Citrate 50 MCG PACU Q10MIN PRN PRN IV Hydralazine HCl 2 MG PACU Q10MIN PRN PRN IV Hydrocodone Bitart/Acetaminophen 1 TAB PACU ONCE PO (CKD) Hydromorphone HCl 1 MG PACU Q10MIN PRN PRN IV Hydromorphone HCl 0.5 MG PACU Q5MIN PRN PRN IV Insulin Human Lispro 0 PACU ONCE PRN SUBQ Labetalol HCl 5 MG PACU Q10MIN PRN PRN IV Meperidine HCl 12.5 MG PACU ONCE PRN IV Morphine Sulfate 2 MG PACU Q10MIN PRN PRN IV Ondansetron HCl 4 MG PACU ONCE PRN IV Ropivacaine 150 MG ASDIR PRN LOCAL Tramadol HCl 50 MG PACU ONCE PO (CKD) Heparin Sodium 0 .STK-MED ONE .ROUTE (DC) Phenylephrine HCl 250 ML .STK-MED ONE IV (DC) Dexamethasone Sodium Phosphate 0 .STK-MED ONE .R OUTE (DC) Lidocaine HCl 0 .STK-MED ONE .ROUTE (DC) Ondansetron HCl 0 .STK-MED ONE .ROUTE (DC) Rocuronium [place] 0 .STK-MED ONE IV (DC) Fentanyl Citrate 0 .STK-MED ONE .ROUTE (DC) Midazolam HCl 0 .STK-MED ONE .ROUTE (DC) Propofol 20 ML .STK-MED ONE IV (DC) Heparin Sodium 0 .STK-MED ONE .ROUTE (DC) Heparin Sodium 0 .STK-MED ONE .ROUTE (DC) Lidocaine HCl 0 .STK-MED ONE .ROUTE (DC) Cefazolin Sodium 0 .STK-MED ONE .ROUTE (DC) Cefazolin Sodium 3 GM PREOP ONCE IV (CKD) Sodium Chloride 100 ML Amlodipine Besylate 10 MG DAILY PO Labetalol HCl 10 MG Q6H PRN PRN IV Potassium Chloride/Dextrose/Sod Cl 1,000 ML .Q1 3H20M IV Acetaminophen 650 MG Q4H PRN PRN PO Hydrocodone Bitart/Acetaminophen 1 TAB Q6H PRN P RN PO (DC) Morphine Sulfate 4 MG Q4H PRN PRN IV Ondansetron HCl 4 MG Q4H PRN PRN IV Temazepam 15 MG BEDTIME PRN PRN PO Acetaminophen 650 MG Q4H PRN PRN PO (DC) Hydrocodone Bitart/Acetaminophen 1 TAB Q4H PRN P RN PO (DC) Morphine Sulfate 4 MG Q4H PRN PRN IV (DC) Ondansetron HCl 4 MG Q6H PRN PRN IV (DC) Iopamidol 100 ML .STK-MED ONE IV (DC) Sodium Chloride 0 ASDIR PRN IV Physical Exam General appearance: sedated Neck: no JVD Cardiovascular: irregularly irregular, normal he art sounds Abdomen: non-tender, normal bowel sounds, soft, no distention Extremities: no edema Musculoskeletal: muscle wasting, ON HIS LEFT GRANADO D Neuro/ALTERATIONS SEWER: normal speech, no motor deficits Results Findings/Data: Laboratory Tests 10/06 10/05 10/05 0515 1440 1440 Chemistry Sodium (134 - 147 mEq/L) 139 140 Potassium (3.4 - 5.0 mEq/L) 3.5 3.4 Chloride (100 - 108 mEq/L) 104 106 Carbon Dioxide (21 - 33 mEq/l) 28 28 Anion Gap (0 - 20) 10 9 BUN (7 - 18 mg/dL) 18 18 Creatinine (0.6 - 1.3 mg/dL) 1.0 1.1 Glomerular Filtr Rate (70 - 80) 72.3 64.7 L Glucose (70 - 110 mg/dL) 112 H 97 Calcium (8.0 - 10.5 mg/dL) 9.0 9.6 Total Bilirubin (0.0 - 1.0 mg/dL) 0.80 0.80 AST (15 - 37 IUnit/L) 28 28 ALT (30 - 65 IUnit/L) 17 L 19 L Total Alk Phosphatase (20 - 125 IUnit/L) 74 75 Troponin I (0.000 - 0.045 ng/mL) 0.135 H Total Protein (6.4 - 8.2 g/dL) 7.6 7.1 Albumin (3.4 - 5.0 g/dL) 3.80 3.90 Triglycerides (40 - 150 mg/dL) 83 Cholesterol (<200 mg/dL) 165 LDL Cholesterol Measurd (0 - 100 mg/dL) 117.7 H 113.1 H HDL Cholesterol (32 - 72 mg/dL) 47.5 Cholesterol/HDL Ratio (3.43 - 4.97 RATIO) 3.47 Lipase (13 - 57 U/L) 42 TSH (0.42 - 5.47 IU/mL) 0.83 Laboratory Tests 10/06 10/06 10/06 10/06 0908 0819 0515 0515 Coagulation INR (0.8 - 1.2) 1.3 H PTT (Lexi) (25.0 - 39.5 Seconds) 37.2 PT Patient/Control Mix (9.3 - 12.9 SECONDS) 13. 9 H Activated Coag Time (74 - 137 SEC) 219 H 268 H Laboratory Tests 10/06 10/05 0515 1440 Hematology WBC (4.5 - 11.0 x10 3/uL) 5.6 6.4 RBC (4.00 - 5.60 x10 6/uL) 4.86 4.76 Hgb (12.5 - 16.9 g/dL) 15.7 15.5 Hct (37.5 - 50.7 %) 47.3 46.6 MCV (81.0 - 99.0 fL) 97.3 97.9 MCH (27.0 - 33.0 pg) 32.3 32.6 MCHC (33.0 - 37.0 g/dL) 33.2 33.3 RDW (11.5 - 14.5 %) 13.9 14.2 Plt Count (150 - 400 x10 3/uL) 181 182 MPV (7.0 - 9.0 fL) 10.6 H 11.0 H Neut % (Auto) (56.0 - 77.0 %) 54.8 L 63.6 Lymph % (Auto) (14.0 - 32.0 %) 30.1 23.9 [place] % (Auto) (4.8 - 9.0 %) 11.2 H 9.8 H Eos % (Auto) (0.3 - 3.7 %) 2.8 1.6 Baso % (Auto) (0.0 - 2.0 %) 0.7 0.6 Neut # (Auto) (2.0 - 7.6 x10 3/uL) 3.09 4.07 Lymph # (Auto) (1.0 - 3.8 x10 3/uL) 1.70 1.53 [place] # (Auto) (0.1 - 0.8 x10 3/uL) 0.63 0.63 Eos # (Auto) (0.0 - 0.2 x10 3/uL) 0.16 0.10 Baso # (Auto) (0.0 - 0.2 x10 3/uL) 0.04 0.04 Abs Immat Gran (auto) (0.00 - 0.03 x10 3/uL) 0. 02 0.03 Add Manual Diff NO NO Immature Gran % (0.0 - 2.0 %) 0.4 0.5 Nucleated RBC % (0 - 0 %) 0.0 0.0 Nucleated RBCs # (Man) (0.0 - 0.1 x10 3/uL) 0.0 0 0.00 Laboratory Tests 10/05 1631 Serology SARS-CoV-2 Ag (Rapid) (Negative) Negative Laboratory Tests 10/05 1700 Urines Urine Color (YEL/STRAW) STRAW Urine Appearance (CLEAR) CLEAR Urine pH (5.0 - 7.0) 7.0 Ur Specific [place] (1.005 - 1.030) 1.021 Urine Protein (NEGATIVE) NEGATIVE Urine Glucose (UA) (NEGATIVE) NEGATIVE Urine Ketones (NEGATIVE) TRACE H Urine Blood (NEGATIVE) NEGATIVE Urine Nitrite (NEGATIVE) NEGATIVE Urine Bilirubin (NEGATIVE) NEGATIVE Urine Urobilinogen (0.2 - 1.0 mg/dL) 0.2 Ur Leukocyte Esterase (NEGATIVE) NEGATIVE Urine RBC (0 - 3 RBC/HPF) 0-3 Urine WBC (0 - 3 WBC/HPF) 0-3 Ur Squamous Epith Cells (NONE SEEN /HPF) NONE S EEN Urine Bacteria (NONE SEEN /HPF) NONE SEEN Urine Mucus (NONE SEEN /LPF) TRACE Radiology data: Recent Impressions: CAT SCAN - CTA ABD PEL W CONT 10/05 1543 Report Impression - Status: SIGNED Entered: 10/05/2020 1630 IMPRESSION: 1. Grossly stable aortic root/ascending aortic a neurysm accounting for measurement error. 2. Grossly stable fusiform infrarenal abdominal aortic aneurysm without rupture. 3. 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 4. Patent celiac, mesenteric and renal arterial circulation. 5. 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 6. Cardiomegaly with severe coronary atheroscler osis. 7. No abnormal solid organ enhancement. 8. Left simple renal cyst. SL: [id number] Impression By: Elie tolentino M.D. CAT SCAN - CT ANGIO CHEST 10/05 1543 Report Impression - Status: SIGNED Entered: 10/05/2020 1630 IMPRESSION: 1. Grossly stable aortic root/ascending aortic a neurysm accounting for measurement error. 2. Grossly stable fusiform infrarenal abdominal aortic aneurysm without rupture. 3. 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 4. Patent celiac, mesenteric and renal arterial circulation. 5. 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 6. Cardiomegaly with severe coronary atheroscler osis. 7. No abnormal solid organ enhancement. 8. Left simple renal cyst. SL: [id number] Impression By: Elie tolentino M.D. Diagnosis, Assessment Plan Free Text DxA P Notes Free text DxA P notes: 6.9 CM AAA WITH OCCLUSION OF RINA, S/P EVR - TRT PLAN BY CTS, ASCENDING TAA IS TO BE OBSERVED O/P HTN - NL NOW, COREG 12.5 BID, HOLD HOME MEDS UNT IL BETTER, TOLERATES DIET TROP 0.0135/DEMAND ISCHEMIA - H/O A.FIB, NO RECE NT W/U, ASK CARD TO EVAL, AND POST OP F/U H/O HYPOTHYROIDISM - RESUME HOME SYNTHROID, NL T SH (0.83), LDL 113 DVT PX - SCD, ON HEPARIN GTT Electronically Signed by Adis Man MD on 10/06 at 1050 [facility] #:[id number] END OF REPORT 2020-10-06 09:56:00-00:00 [id number] [place] [address] PATIENT NAME: ALLYSSA MATIAS ADMIT DATE: 10/05 ACCOUNT NO: [id number] ROOM NO: G.2202 AGE: 80 REPORT TYPE: OPERATIVE REPORT SEX: M ADMITTING PHYSICIAN:Adis Man MD ATTENDING PHYSICIAN:Adis Man MD OPERATION DATE: 10/06/2020 PREOPERATIVE DIAGNOSIS: A 6.9 cm infrarenal abdo nathalie aortic aneurysm. POSTOPERATIVE DIAGNOSIS: A 6.9 cm infrarenal abd ominal aortic aneurysm. OPERATIONS: 1. Bilateral femoral artery cutdown. 2. Endovascular repair of infrarenal abdominal a ortic aneurysm. 3. Repair of bilateral common femoral artery. SURGEON: Stevo Pereyra MD DRESSER TENDER: Juanis Nguyen MD ANESTHESIOLOGIST: Dr. Funk. ANESTHESIA: General endotracheal anesthesia. ESTIMATED BLOOD LOSS: 50 mL. INDICATIONS: Mr. Matias is a 80-year-ol d gentleman with an incidental finding of 6.9 cm infrarenal abdominal aortic aneurysm. He was investigated and the morphology of the aneurysm was found suitable fo r endovascular repair. After due preop counseling, he was brought to the oper ating room today for endovascular repair. FINDINGS: 1. Right common femoral artery measured about 12 mm in size, significant calcification on the posterior aspect of the art shelia. 2. Left common femoral artery measured about 12 mm in size, significant calcification on the posterior aspect of the art shelia. 3. A 7 cm infrarenal abdominal aortic aneurysm. 4. Completion angiogram did not show any evidenc e of endoleak. PROCEDURE IN DETAIL: Mr. Matias was identified in the preoperative holding area and brought to the oper ating room and placed supine on the operating table. After induction of general endotracheal anesthe roshni, Green catheter, radial arterial line, antibiotics were placed. The roddy ent's anterior torso and both lower extremities were prepped and draped in sta ndard surgical fashion. We began by exploring the right common femoral ramon ry via a 3-cm transverse incision centered on the midpoint of the right inguinal ligament. Subcutaneous tissue was divided with Bovie cautery. The right common femoral artery was PATIENT NAME: ALLYSSA MATIAS [id number] identified, dissected, and isolated. Next, two c oncentric pursestring sutures were placed on the anterior wall of the right co mmon femoral artery. Next, attention was shifted to the left common femoral artery which was explored via a 3-cm transverse incision destiny tered on the midpoint in the left inguinal ligament. Subcutaneous tissue was divided with Bovie caut shelia. The left common femoral artery was identified, dissected, and isolated. Two concentric pursestring sutures were then placed on the anterior wall of the left common femoral artery. Next, using modified Seldin davis technique, an 18-Lithuanian sheath was placed in the right common femoral artery and a 16-Lithuanian sheath was placed in the left common femoral artery. Patient was heparinzed with 1000 0 U of heparin, to keep ACT more thn 250. A pigtail was passed into the desc ending thoracic aorta and angiogram was performed for roadmapping. Next, the [place] device 31 mm x 14.5 mm x 130 mm was then passed through the right commo n femoral artery into the infrarenal aorta. After confirming the position of the renal artery, the main body and the contralateral limb was depl oyed. Next, the contralateral limb was then cannulated using a multipurpose catheter an d a Glidewire via the left common femoral artery. Angiogram was performed a nd the length of the device was measured to 23 mm x 12 cm. This was then bro ught onto the surgical field and passed through the left common femoral arter y, and deployed under fluoroscopic control. After deploying the contra lateral limb, it was noticed that we were about 1.5 cm short of the hypogastr ic artery and we were concerned that we may not have adequately exclud ed the aneurysm and hence a cuff measuring 23 mm x 10 cm was passed through the left common femoral artery, and deployed just proximal to the origin of the left hypogastric artery. Next, the ipsilateral limb was deployed. Angiogram was performed through this 18- Lithuanian sheath to identify the l ocation of the right hypogastric artery and 23 mm x 14 cm limb was br ought on to the surgical field, passed through the right groin and deploy ed just proximal to the right hypogastric artery. Next, using a True balloon, all the creases in the device were ironed out. Next, a pigtail catheter was pa ssed through the left common femoral artery and a completion angiogram was pe rformed, which did not show any evidence of endoleak and confirmed the exclu yomi of the aneurysm. The sheaths were removed from the right and left com mon femoral artery and the arteries were repaired by tying the pursestring down. The patient had good PT and DP signals bilaterally. Hemostasis was confi rmed and the incisions were closed in layers using #3 Vicryl for subcutaneou s tissue, and 4-0 Vicryl for the skin. The patient was extubated in t operating room and moved to PACU in stable condition. Dictated By: Stevo Pereyra MD WT: OP:RAVI/MANDI/NETTE Conf#: [id number]#: [id number] Authenticated and Edited by Nato Pereyra MD On 10/08/20 4:15:44 PM at 1618 PATIENT NAME: ALLYSSA MATIAS [id number] 3558-01-21 09:47:00-00:00 [facility] ([facility]) Brief Op Note REPORT#:[id number] REPORT STATUS: Signed DATE:10/06/20 TIME: 946 PATIENT: ALLYSSA MATIAS UNIT #: [id number] ROOM/BED: [place] [address] : 42 AGE: 80 SEX: M ATTEND: Adis Man MD ADM AUTHOR: Stevo Pereyra MD * ALL edits or amendments must be made on the el ectronic/computer document * Op/Inv Proc Note - Brief Pre-procedure diagnosis: 6.9 cc infra renal abdominal aortic aneurysm Post-procedure diagnosis: same as pre procedure dx Procedures performed: EVR of infra renal AAA (31x14,5x130) Primary Surgeon: Roddy Marketing Strategy Manager(s): Salomón Baxter Findings: 7cm AAA Complications: none Estimated blood loss in ml's: 50 cc Specimens removed/altered: none at 0949 RPT #:[id number] END OF REPORT 2020-10-05 18:48:00-00:[address] [facility] ([facility]) Hospitalist History Physical REPORT#:[id number] REPORT STATUS: Signed DATE:10/05/20 TIME: 1847 PATIENT: ALLYSSA MATIAS UNIT #: [id number] ROOM/BED: : 42 AGE: 80 SEX: M ATTEND: William Bernstein MD ADM AUTHOR: Adis Man MD * ALL edits or amendments must be made on the [employer]/computer document * History of Present Illness HPI Chief complaint: ABD PAIN PCP: PCP: Yimi Dykes MD HPI: 80 WM WITH MILD FORM OF ALS, HTN, HLP, HYPOTHYROIDISM, CHRONIC A.FIB, ON SAVAYSA , LBP. HE WAS SEEN BY DR. DYKES (HIS PCP) FOR LBP, AND H AD AN MRI WHICH LEAD TO INCIDENTAL FINDING OF AAA, THEN HAD CTA CHEST/AB D ON 09/27/20. HE WAS REFERRED TO DR. STEVENS WHO PLAN ON SURGERY SOON, BUT OV ER THE PAST 2 DAYS, HE'S CONCERNED ABOUT THE POSSIBLI TY OF RUPTURE BECAUSE HE HAS INTERMITENT EPIGASTRIC AND LUQ ABD FOR 2 DAYS, MILD RATED 5/10, AND NOT WORSENED WITH MOVEMENT OR MEALS. NL HE CAN WALK UP TO 1/4 MILE WITHOUT CP /SOB, JUST DUE TO MILD ALS HE CAN WALK FURTHER. HSI LAST STRESS WAS [address] SCHWARTZ. Informant/historian: patient, prior records, ref erring physician History Past Medical Surgical Hx Additional medical history: CBP Additional surgical history: Cardioversion Family History Additional family history: Mother: 72 years, natural causes Father: , heart disease, hypertension CK D, AAA RUPTURE Sister: Bladder cancer, hypertension, kidney dis ease, diabetes Social History Alcohol use: Denies EtOH use Drug use: Denies recreational drugs Smoking status for patients 13 years old or olde r: Never Smoker Other social history: Local resident Medication/Allergy-Vaccine Hx Medications: Home Medications: EDOXABAN TOSYLATE (SAVAYSA) 60 MG PO DAILY HYDROCHLOROTHIAZIDE (HYDRODIURIL) 25 MG PO DAILY GABAPENTIN (NEURONTIN) 300 MG PO TID hydrALAZINE (APRESOLINE) 25 MG PO BID LEVOTHYROXINE (LEVOXYL) 200 MCG PO DAILY amLODIPine (NORVASC) 10 MG PO DAILY LOSARTAN (COZAAR) 100 MG PO DAILY Allergies: Coded Allergies: No Known Drug Allergies (10/05/20) Review of Systems Free Text ROS Notes Free Text ROS Notes: 2 POINT ROS WERE NEGATIVE Physical Exam VS/I O: Vital Signs Date Temp Pulse Resp B/P B/P Mean Pulse Ox FiO2 10/05 97.5 50-71 16-17 143-146/84-90 104-107 95 -96 Last Documented: Result Date Time Pulse Ox 95 10/05 1635 B/P 146/84 10/05 1635 B/P Mean 104 10/05 1635 O2 Delivery Room air 10/05 1635 Pulse 50 10/05 1635 Resp 16 10/05 1635 Temp 97.5 10/05 1400 Patient Weight and BMI Weight (kg): 115.909 BMI: 34.7 General appearance: chronically ill appearing, a lert, awake, oriented Neck: no JVD Cardiovascular: irregularly irregular, normal he art sounds Respiratory: aerating well, clear to auscultatio n Abdomen: non-tender, normal bowel sounds, soft, no distention Extremities: no edema Musculoskeletal: muscle wasting, ON HIS LEFT GRANADO D Neuro/ALTERATIONS SEWER: alert, oriented X 3, normal speech, n o motor deficits Results Findings/Data: Laboratory Tests: 10/05 10/05 10/05 1700 1631 1440 Chemistry LDL Cholesterol Measurd (0 - 100 mg/dL) 113.1 H Serology SARS-CoV-2 Ag (Rapid) (Negative) Negative Urines Urine Color (YEL/STRAW) STRAW Urine Appearance (CLEAR) CLEAR Urine pH (5.0 - 7.0) 7.0 Ur Specific [place] (1.005 - 1.030) 1.021 Urine Protein (NEGATIVE) NEGATIVE Urine Glucose (UA) (NEGATIVE) NEGATIVE Urine Ketones (NEGATIVE) TRACE H Urine Blood (NEGATIVE) NEGATIVE Urine Nitrite (NEGATIVE) NEGATIVE Urine Bilirubin (NEGATIVE) NEGATIVE Urine Urobilinogen (0.2 - 1.0 mg/dL) 0.2 Ur Leukocyte Esterase (NEGATIVE) NEGATIVE Urine RBC (0 - 3 RBC/HPF) 0-3 Urine WBC (0 - 3 WBC/HPF) 0-3 Ur Squamous Epith Cells (NONE SEEN /HPF) NONE S EEN Urine Bacteria (NONE SEEN /HPF) NONE SEEN Urine Mucus (NONE SEEN /LPF) TRACE 10/05 1440 Chemistry Sodium (134 - 147 mEq/L) 140 Potassium (3.4 - 5.0 mEq/L) 3.4 Chloride (100 - 108 mEq/L) 106 Carbon Dioxide (21 - 33 mEq/l) 28 Anion Gap (0 - 20) 9 BUN (7 - 18 mg/dL) 18 Creatinine (0.6 - 1.3 mg/dL) 1.1 Glomerular Filtr Rate (70 - 80) 64.7 L Glucose (70 - 110 mg/dL) 97 Calcium (8.0 - 10.5 mg/dL) 9.6 Total Bilirubin (0.0 - 1.0 mg/dL) 0.80 AST (15 - 37 IUnit/L) 28 ALT (30 - 65 IUnit/L) 19 L Total Alk Phosphatase (20 - 125 IUnit/L) 75 Troponin I (0.000 - 0.045 ng/mL) 0.135 H Total Protein (6.4 - 8.2 g/dL) 7.1 Albumin (3.4 - 5.0 g/dL) 3.90 Lipase (13 - 57 U/L) 42 Hematology WBC (4.5 - 11.0 x10 3/uL) 6.4 RBC (4.00 - 5.60 x10 6/uL) 4.76 Hgb (12.5 - 16.9 g/dL) 15.5 Hct (37.5 - 50.7 %) 46.6 MCV (81.0 - 99.0 fL) 97.9 MCH (27.0 - 33.0 pg) 32.6 MCHC (33.0 - 37.0 g/dL) 33.3 RDW (11.5 - 14.5 %) 14.2 Plt Count (150 - 400 x10 3/uL) 182 MPV (7.0 - 9.0 fL) 11.0 H Neut % (Auto) (56.0 - 77.0 %) 63.6 Lymph % (Auto) (14.0 - 32.0 %) 23.9 [place] % (Auto) (4.8 - 9.0 %) 9.8 H Eos % (Auto) (0.3 - 3.7 %) 1.6 Baso % (Auto) (0.0 - 2.0 %) 0.6 Neut # (Auto) (2.0 - 7.6 x10 3/uL) 4.07 Lymph # (Auto) (1.0 - 3.8 x10 3/uL) 1.53 [place] # (Auto) (0.1 - 0.8 x10 3/uL) 0.63 Eos # (Auto) (0.0 - 0.2 x10 3/uL) 0.10 Baso # (Auto) (0.0 - 0.2 x10 3/uL) 0.04 Abs Immat Gran (auto) (0.00 - 0.03 x10 3/uL) 0. 03 Add Manual Diff NO Immature Gran % (0.0 - 2.0 %) 0.5 Nucleated RBC % (0 - 0 %) 0.0 Nucleated RBCs # (Man) (0.0 - 0.1 x10 3/uL) 0.0 0 Laboratory Tests 10/05/20 1440: [Embedded Image Not Available] Radiology data: Recent Impressions: CAT SCAN - CTA ABD PEL W CONT 10/05 1544 Report Impression - Status: SIGNED Entered: 10/05/2020 1630 IMPRESSION: 1. Grossly stable aortic root/ascending aortic a neurysm accounting for measurement error. 2. Grossly stable fusiform infrarenal abdominal aortic aneurysm without rupture. 3. 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 4. Patent celiac, mesenteric and renal arterial circulation. 5. 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 6. Cardiomegaly with severe coronary atheroscler osis. 7. No abnormal solid organ enhancement. 8. Left simple renal cyst. SL: [id number] Impression By: Elie tolentino M.D. CAT SCAN - CT ANGIO CHEST 10/05 1544 Report Impression - Status: SIGNED Entered: 10/05/2020 1630 IMPRESSION: 1. Grossly stable aortic root/ascending aortic a neurysm accounting for measurement error. 2. Grossly stable fusiform infrarenal abdominal aortic aneurysm without rupture. 3. 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 4. Patent celiac, mesenteric and renal arterial circulation. 5. 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 6. Cardiomegaly with severe coronary atheroscler osis. 7. No abnormal solid organ enhancement. 8. Left simple renal cyst. SL: [id number] Impression By: Elie tolentino M.D. Diagnosis, Assessment Plan Free Text A P: 6.9 CM AAA WITH OCCLUSION OF RINA - SEEN BY CTS, PLAN ON OR SOON, SO KEEP NPO PAST MN HTN - HIGH, COREG 12.5 BID TROP 0.0135/DEMAND ISCHEMIA - H/O A.FIB, NO RECE NT W/U, ASK CARD TO EVAL, AND PREOP CLEARANCE H/O HYPOTHYROIDISM - GET TSH/FT4/LIPID DVT PX - SCD FOR NOW Electronically Signed by Adis Man MD on 10/05 at 1858 RPT #:[id number] END OF REPORT 2020-10-05 17:47:00-00:00 [facility] Cardiothoracic Surgery Consult REPORT#:[id number] REPORT STATUS: Signed DATE:10/05/20 TIME: 1746 PATIENT: ALLYSSA MATIAS UNIT #: [id number] ROOM/BED: : 42 AGE: 80 SEX: M ATTEND: William Bernstein MD ADM AUTHOR: Shay Taveras NP * ALL edits or amendments must be made on the el ectronic/computer document * History of Present Illness HPI Chief complaint: Back pain Abdominal aortic aneurysm PCP: PCP: Yimi Dykes MD Requesting Clinician Dr. Yimi Dykes HPI: Mr. Matias is a 80-year-old male with past medical history significant for hypertension, bladder ca ncer (status post BCG treatment 2005), atrial fibrillation (cardioversion 2015) , sleep apnea, lower extremity chronic venous insufficiency (status post BLE ablations) who presents to the ER with c/o aching abdominal pain that started last night. He recently went to see his PCP with complaints of back that radiated to R leg. Work up included an MRI of lumbar spin which revealed an incidental finding of abdominal aortic aneurysm. Subsequent CTA of chest showed a 6.9 cm infraren al abdominal aortic aneurysm. Patient was also found to have a 4.6 ascending a ortic aneurysm. Patient was referred to CV surgery for evaluation Informant/Historian: Patient Prior records History Past Medical History: Reports: Atrial fib/flutter, Cancer (Bladder), H ypertension, Abdominal aortic aneurysm. Additional Medical History: CBP Past Surgical History: Reports: Bladder surgery. Additional Surgical History: Cardioversion Additional Family History Mother: 72 years, natural causes Father: , heart disease, hypertension CK D Sister: Bladder cancer, hypertension, kidney dis ease, diabetes Alcohol Use Alcohol use, [place] daily Smoking status for patients 13 years old or olde r: Never Smoker Other Social History Local resident Allergies: Coded Allergies: amlodipine (UNKNOWN 09/27/20) edoxaban (From [employer]) (UNKNOWN 09/27/20) hydralazine (UNKNOWN 09/27/20) levothyroxine (UNKNOWN 09/27/20) Occupation retired Ambulatory Status Independent Review of Systems Review of Systems Constitutional: Denies: chills, fatigue, fever. Skin: Denies: rash, swelling. Eyes: Denies: redness, discharge. Respiratory: Denies: SOB, wheezing. Cardiovascular: Denies: chest pain, ZAMBRANO (dyspnea on exertion). GI: Denies: diarrhea, nausea, vomiting. Musculoskeletal: Reports: extremity swelling. Denies: extremity p ain. Objective Physical Exam VS/I O: Last Documented: Result Date Time Pulse Ox 95 10/05 1635 B/P 146/84 10/05 1635 B/P Mean 104 10/05 1635 O2 Delivery Room air 10/05 1635 Pulse 50 10/05 1635 Resp 16 10/05 1635 Temp 97.5 10/05 1400 PATIENT WEIGHT: Weight (lb): Weight (oz): Weight (kg): 115.909 General appearance: alert, awake, oriented HEENT: pupils reactive to light, sclera clear, r ed, bulbous nose Neck: full range of motion, non-tender Cardiovascular: normal heart sounds, regular rat e rhythm Respiratory: aerating well, symmetric expansion Abdomen: soft, non-tender Extremities: dry, moves all Musculoskeletal: full range of motion Neuro/ALTERATIONS SEWER: alert, oriented X 3 Skin: dry, flaky, scaly Diagnosis, Assessment Plan Free Text A P: Mr. Matias is a 80-year-old male with past medical history significant for hypertension, bladder ca ncer (status post BCG treatment 2005), atrial fibrillation (cardioversion 2015) , sleep apnea, lower extremity chronic venous insufficiency (status post BLE ab lations), who went to see his PCP with complaints of back that radiated to R leg. Work up included an MRI of lumbar spin which revealed an incidental finding of abd ominal aortic aneurysm. Subsequent CTA of chest showed a 6.9 cm infraren al abdominal aortic aneurysm. Patient was also found to have a 4.6 ascending a ortic aneurysm. Patient was referred to CV surgery for evaluation Patient continues to have back and abdom inal pain. He was seen and examined by Dr. Pereyra. CTA has been reviewed. In v iew of 6.9 infrarenal abdominal aortic aneurysm and risk of rupture, endovascular repai r of the aneurysm has been recommended. The procedure, risk involved, benefits, alternatives and potential complictions were discussed at length with the p atient. He acknowledges understanding and would like to proceed with surgery. We have scheduled him for endovascular repair of abdominal aortic aneurysm tomorrow. As far as the 4.6 ascending aortic aneurysm, Dr. Pereyra recommend ed conservative management. Electronically Signed by Shay Taveras NP on at 1828 RPT #:[id number] END OF REPORT 2020-10-05 17:47:00-00:00 [facility]) Cardiothoracic Surgery Consult REPORT#:[id number] REPORT STATUS: Signed DATE:10/05/20 TIME: 1746 PATIENT: ALLYSSA MATIAS UNIT #: [id number] ROOM/BED: 2202-1 : 42 AGE: 80 SEX: M ATTEND: Adis Man MD ADM AUTHOR: Shay Taveras DEFLECTOR OPERATOR * ALL edits or amendments must be made on the el HERMEL DELOR/computer document * NitinShay LDoug 10/05/20 7167: History of Present Illness HPI Chief complaint: Back pain Abdominal aortic aneurysm PCP: PCP: Yimi Dykes MD Requesting Clinician Dr. Yimi Dykes HPI: Mr. Matias is a 80-year-old male with past medical history significant for hypertension, bladder ca ncer (status post BCG treatment 2005), atrial fibrillation (cardioversion 2015) , sleep apnea, lower extremity chronic venous insufficiency (status post BLE ablations) who presents to the ER with c/o aching abdominal pain that started last night. He recently went to see his PCP with complaints of back that radiated to R leg. Work up included an MRI of lumbar spin which revealed an incidental finding of abdominal aortic aneurysm. Subsequent CTA of chest showed a 6.9 cm infraren al abdominal aortic aneurysm. Patient was also found to have a 4.6 ascending a ortic aneurysm. Patient was referred to CV surgery for evaluation Informant/Historian: Patient Prior records History Past Medical History: Reports: Atrial fib/flutter, Cancer (Bladder), H ypertension, Abdominal aortic aneurysm. Additional Medical History: CBP Past Surgical History: Reports: Bladder surgery. Additional Surgical History: Cardioversion Additional Family History Mother: 72 years, natural causes Father: , heart disease, hypertension CK D Sister: Bladder cancer, hypertension, kidney dis ease, diabetes Alcohol Use Alcohol use, [place] daily Smoking status for patients 13 years old or olde r: Never Smoker Other Social History Local resident Occupation retired Ambulatory Status Independent Review of Systems Review of Systems Constitutional: Denies: chills, fatigue, fever. Skin: Denies: rash, swelling. Eyes: Denies: redness, discharge. Respiratory: Denies: SOB, wheezing. Cardiovascular: Denies: chest pain, ZAMBRANO (dyspnea on exertion). GI: Denies: diarrhea, nausea, vomiting. Musculoskeletal: Reports: extremity swelling. Denies: extremity p ain. Objective Physical Exam VS/I O: Last Documented: Result Date Time Pulse Ox 95 10/05 1635 B/P 146/84 10/05 1635 B/P Mean 104 10/05 1635 O2 Delivery Room air 10/05 1635 Pulse 50 10/05 1635 Resp 16 10/05 1635 Temp 97.5 10/05 1400 PATIENT WEIGHT: Weight (lb): Weight (oz): Weight (kg): 115.909 General appearance: alert, awake, oriented HEENT: pupils reactive to light, sclera clear, r ed, bulbous nose Neck: full range of motion, non-tender Cardiovascular: normal heart sounds, regular rat e rhythm Respiratory: aerating well, symmetric expansion Abdomen: soft, non-tender Extremities: dry, moves all Musculoskeletal: full range of motion Neuro/ALTERATIONS SEWER: alert, oriented X 3 Skin: dry, flaky, scaly Diagnosis, Assessment Plan Free Text A P: Mr. Matias is a 80-year-old male with past medical history significant for hypertension, bladder ca ncer (status post BCG treatment 2005), atrial fibrillation (cardioversion 2015) , sleep apnea, lower extremity chronic venous insufficiency (status post BLE ab lations), who went to see his PCP with complaints of back that radiated to R leg. Work up included an MRI of lumbar spin which revealed an incidental finding of abd ominal aortic aneurysm. Subsequent CTA of chest showed a 6.9 cm infraren al abdominal aortic aneurysm. Patient was also found to have a 4.6 ascending a ortic aneurysm. Patient was referred to CV surgery for evaluation Patient continues to have back and abdom inal pain. He was seen and examined by Dr. Pereyra. CTA has been reviewed. In v iew of 6.9 infrarenal abdominal aortic aneurysm and risk of rupture, endovascular repai r of the aneurysm has been recommended. The procedure, risk involved, benefits, alternatives and potential complictions were discussed at length with the p atient. He acknowledges understanding and would like to proceed with surgery. We have scheduled him for endovascular repair of abdominal aortic aneurysm tomorrow. As far as the 4.6 ascending aortic aneurysm, Dr. Pereyra recommend ed conservative management. Stevo Pereyra 10/09/20 1554: History Allergies: Coded Allergies: No Known Drug Allergies (10/05/20) Attestations Physician Attestation Agree w/findings plan: I have seen and examined Mr. Matias. I agree wi th the findings and plan as documented by ZONIA Redmond. Briefly, 80-year-old gentlem an with 6.9 cm infrarenal abdominal aortic aneurysm being admitted for endovascu lar repair. Procedure, risk, benefit, alternatives, and complications have been explained to the [facility] ient. Electronically Signed by Shay Taveras NP on at 1828 RPT #:[id number] END OF REPORT 2020-10-05 17:47:00-00:[address] [facility] Cardiothoracic Surgery Consult REPORT#:[id number] REPORT STATUS: Signed DATE:10/05/20 TIME: 1746 PATIENT: ALLYSSA MATIAS UNIT #: [id number] ROOM/BED: [place] [address] : 42 AGE: 80 SEX: M ATTEND: Adis Man MD ADM AUTHOR: Shay Taveras NP * ALL edits or amendments must be made on the [employer]/computer document * Shay Taveras. 10/05/201746: History of Present Illness HPI Chief complaint: Back pain Abdominal aortic aneurysm PCP: PCP: Yimi Dykes MD Requesting Clinician Dr. Yimi Dykes HPI: Mr. Matias is a 80-year-old male with past medical history significant for hypertension, bladder ca ncer (status post BCG treatment 2005), atrial fibrillation (cardioversion 2015) , sleep apnea, lower extremity chronic venous insufficiency (status post BLE ablations) who presents to the ER with c/o aching abdominal pain that started last night. He recently went to see his PCP with complaints of back that radiated to R leg. Work up included an MRI of lumbar spin which revealed an incidental finding of abdominal aortic aneurysm. Subsequent CTA of chest showed a 6.9 cm infraren al abdominal aortic aneurysm. Patient was also found to have a 4.6 ascending a ortic aneurysm. Patient was referred to CV surgery for evaluation Informant/Historian: Patient Prior records History Past Medical History: Reports: Atrial fib/flutter, Cancer (Bladder), H ypertension, Abdominal aortic aneurysm. Additional Medical History: CBP Past Surgical History: Reports: Bladder surgery. Additional Surgical History: Cardioversion Additional Family History Mother: 72 years, natural causes Father: , heart disease, hypertension CK D Sister: Bladder cancer, hypertension, kidney dis ease, diabetes Alcohol Use Alcohol use, [place] daily Smoking status for patients 13 years old or olde r: Never Smoker Other Social History Local resident Occupation retired Ambulatory Status Independent Review of Systems Review of Systems Constitutional: Denies: chills, fatigue, fever. Skin: Denies: rash, swelling. Eyes: Denies: redness, discharge. Respiratory: Denies: SOB, wheezing. Cardiovascular: Denies: chest pain, ZAMBRANO (dyspnea on exertion). GI: Denies: diarrhea, nausea, vomiting. Musculoskeletal: Reports: extremity swelling. Denies: extremity p ain. Objective Physical Exam VS/I O: Last Documented: Result Date Time Pulse Ox 95 10/05 1635 B/P 146/84 10/05 1635 B/P Mean 104 10/05 1635 O2 Delivery Room air 10/05 1635 Pulse 50 10/05 1635 Resp 16 10/05 1635 Temp 97.5 10/05 1400 PATIENT WEIGHT: Weight (lb): Weight (oz): Weight (kg): 115.909 General appearance: alert, awake, oriented HEENT: pupils reactive to light, sclera clear, r ed, bulbous nose Neck: full range of motion, non-tender Cardiovascular: normal heart sounds, regular rat e rhythm Respiratory: aerating well, symmetric expansion Abdomen: soft, non-tender Extremities: dry, moves all Musculoskeletal: full range of motion Neuro/ALTERATIONS SEWER: alert, oriented X 3 Skin: dry, flaky, scaly Diagnosis, Assessment Plan Free Text A P: Mr. Matias is a 80-year-old male with past medical history significant for hypertension, bladder ca ncer (status post BCG treatment 2005), atrial fibrillation (cardioversion 2015) , sleep apnea, lower extremity chronic venous insufficiency (status post BLE ab lations), who went to see his PCP with complaints of back that radiated to R leg. Work up included an MRI of lumbar spin which revealed an incidental finding of abd ominal aortic aneurysm. Subsequent CTA of chest showed a 6.9 cm infraren al abdominal aortic aneurysm. Patient was also found to have a 4.6 ascending a ortic aneurysm. Patient was referred to CV surgery for evaluation Patient continues to have back and abdom inal pain. He was seen and examined by Dr. Pereyra. CTA has been reviewed. In v iew of 6.9 infrarenal abdominal aortic aneurysm and risk of rupture, endovascular repai r of the aneurysm has been recommended. The procedure, risk involved, benefits, alternatives and potential complictions were discussed at length with the p atient. He acknowledges understanding and would like to proceed with surgery. We have scheduled him for endovascular repair of abdominal aortic aneurysm tomorrow. As far as the 4.6 ascending aortic aneurysm, Dr. Pereyra recommend ed conservative management. Stevo Pereyra 10/09/20 1554: History Allergies: Coded Allergies: No Known Drug Allergies (10/05/20) Attestations Physician Attestation Agree w/findings plan: I have seen and examined Mr. Matias. I agree wi th the findings and plan as documented by ZONIA Redmond. Briefly, 80-year-old gentlem an with 6.9 cm infrarenal abdominal aortic aneurysm being admitted for endovascu lar repair. Procedure, risk, benefit, alternatives, and complications have been explained to the pat ient. Electronically Signed by Shay Taveras NP on at 1828 at 1609 RPT #:[id number] END OF REPORT 2020-10-05 14:13:00-00:00 [facility] EMERGENCY PROVIDER REPORT REPORT#:[id number] REPORT STATUS: Signed DATE:10/05/20 TIME: 141 PATIENT: ALLYSSA MATIAS UNIT #: [id number] ROOM/BED: [place] [address] AGE: 80 SEX: M PCP PHYS: Yimi Dykes MD SERVICE AUTHOR: William Bernstein MD * ALL edits or amendments must be made on the [employer]/computer document * HPI-Abd Pain M 40 and Over General Confirmed Patient Yes Initial Greet Date/Time 10/05/20 1356 PCP Adam Pereyra - CV Surgery Presentation Chief Complaint Abdominal pain Hx Obtained From Patient Sudden in Onset? Yes Onset Occurred Yesterday (evening) Progression since Onset Intermittent Location Epigastric, Periumbilical Quality Aching Severity: Onset Moderate Severity: Current No pain currently Associated with Reports: Back pain (chronic). Denies: Chest pain , Diarrhea, Fever, Nausea, Shortness of breath, Vomiting. Context Recent Healthcare Previous diagnosis, Prior work up Free Text HPI Notes Free Text HPI Notes 80-year-old male presents the emergency department with intermittent abdominal aching that began last eveni ng. He currently has no pain. Patient recently had a CTA of his chest abdomen and pelvis which reveal ed a large abdominal aortic aneurysm. Patient has chronic pain in his back. Denies chest pain or LE numbness. Risk-Abd Pain M 40 and Over )( Abdominal Aortic Aneurysm Risk factors review ed, Prior AAA Review of Systems ROS Statements All systems rev neg except as marked. Focused Review of Systems Constitutional Denies: Fever, Lethargy. Respiratory Denies: Cough, non-productive, Cough, productive , Shortness of breath. Cardiovascular Denies: Chest pain, Palpitations, Syncope. GI Reports: Abdominal pain. Denies: Diarrhea, Nause a, Vomiting. Musculoskeletal Reports: Back pain. Denies: Extremity pain, Extr emity swelling. Additional Review of Systems Hematologic Denies: Bleeding, Bruising. Skin Denies: Diaphoresis, Erythema, Rash. Neurologic Denies: Change LOC, Focal weakness, Numbness, Sy ncope. Past Medical History - Adult Stated Complaint ABDOMINAL PAIN/HAS AAA Allergies Coded Allergies: amlodipine (UNKNOWN 09/27/20) edoxaban (From [facility]) (UNKNOWN 09/27/20) hydralazine (UNKNOWN 09/27/20) levothyroxine (UNKNOWN 09/27/20) Past Medical History: Reports: Atrial fib/flutter, Cancer (Bladder), H ypertension, Abdominal aortic aneurysm. Additional Medical History CBP Past Surgical History: Reports: Bladder surgery. Alcohol Use Alcohol use Smoking status for patients 13 years old or olde r: Never Smoker Other Social History Local resident Physical Exam Vital Signs Vital Signs First Documented: Result Date Time Pulse Ox 96 10/05 1400 B/P 143/90 10/05 1400 B/P Mean 107 10/05 1400 O2 Delivery Room air 10/05 1400 Temp 97.5 10/05 1400 Pulse 71 10/05 1400 Resp 17 10/05 1400 Last Documented: Result Date Time Pulse Ox 95 10/05 1635 B/P 146/84 10/05 1635 B/P Mean 104 10/05 1635 O2 Delivery Room air 10/05 1635 Pulse 50 10/05 1635 Resp 16 10/05 1635 Temp 97.5 10/05 1400 Review of Vital Signs Reviewed Focused PE General/Const General/Const Awake, Alert Appearance/Presentation Obese. Eyes Eyes PERRL, No periorbital swelling, No scleral icterus Ears/Nose/Throat Ears/Nose/Throat Airway patent, Mucous membranes moist, Pharynx NL, No facial swelling Resp/Chest Respiratory/Chest Breath sounds NL, Breath soun ds = bilat, No respiratory distress Cardiovascular Cardiovascular Heart rate NL, Heart sounds NL, Cap refill not delayed Abdomen/GI Abdomen/GI Soft, Non-tender, No guarding, No di stention MS Back Back No midline vertebral tend, No CVA tenderne ss Skin Skin Color NL, Warm, Dry Neurologic Neurologic Oriented X3, Speech NL Interpretation Diagnostics Lab Results Interpretation Considerations Reviewed prior records Results Laboratory Tests 10/05/20 1440: [Embedded Image Not Available] Laboratory Tests: 10/05 10/05 10/05 1700 1440 1440 Chemistry Sodium (134 - 147 mEq/L) 140 Potassium (3.4 - 5.0 mEq/L) 3.4 Chloride (100 - 108 mEq/L) 106 Carbon Dioxide (21 - 33 mEq/l) 28 Anion Gap (0 - 20) 9 BUN (7 - 18 mg/dL) 18 Creatinine (0.6 - 1.3 mg/dL) 1.1 Glomerular Filtr Rate (70 - 80) 64.7 L Glucose (70 - 110 mg/dL) 97 Calcium (8.0 - 10.5 mg/dL) 9.6 Total Bilirubin (0.0 - 1.0 mg/dL) 0.80 AST (15 - 37 IUnit/L) 28 ALT (30 - 65 IUnit/L) 19 L Total Alk Phosphatase (20 - 125 IUnit/L) 75 Troponin I (0.000 - 0.045 ng/mL) 0.135 H Total Protein (6.4 - 8.2 g/dL) 7.1 Albumin (3.4 - 5.0 g/dL) 3.90 LDL Cholesterol [place] (0 - 100 mg/dL) 113.1 H Lipase (13 - 57 U/L) 42 Hematology WBC (4.5 - 11.0 x10 3/uL) 6.4 RBC (4.00 - 5.60 x10 6/uL) 4.76 Hgb (12.5 - 16.9 g/dL) 15.5 Hct (37.5 - 50.7 %) 46.6 MCV (81.0 - 99.0 fL) 97.9 MCH (27.0 - 33.0 pg) 32.6 MCHC (33.0 - 37.0 g/dL) 33.3 RDW (11.5 - 14.5 %) 14.2 Plt Count (150 - 400 x10 3/uL) 182 MPV (7.0 - 9.0 fL) 11.0 H Neut % (Auto) (56.0 - 77.0 %) 63.6 Lymph % (Auto) (14.0 - 32.0 %) 23.9 [place] % (Auto) (4.8 - 9.0 %) 9.8 H Eos % (Auto) (0.3 - 3.7 %) 1.6 Baso % (Auto) (0.0 - 2.0 %) 0.6 Neut # (Auto) (2.0 - 7.6 x10 3/uL) 4.07 Lymph # (Auto) (1.0 - 3.8 x10 3/uL) 1.53 [place] # (Auto) (0.1 - 0.8 x10 3/uL) 0.63 Eos # (Auto) (0.0 - 0.2 x10 3/uL) 0.10 Baso # (Auto) (0.0 - 0.2 x10 3/uL) 0.04 Abs Immat Gran (auto) (0.00 - 0.03 x10 3/uL) 0. 03 Add Manual Diff NO Immature Gran % (0.0 - 2.0 %) 0.5 Nucleated RBC % (0 - 0 %) 0.0 Nucleated RBCs # (Man) (0.0 - 0.1 x10 3/uL) 0.0 0 Urines Urine Color (YEL/STRAW) STRAW Urine Appearance (CLEAR) CLEAR Urine pH (5.0 - 7.0) 7.0 Ur Specific [place] (1.005 - 1.030) 1.021 Urine Protein (NEGATIVE) NEGATIVE Urine Glucose (UA) (NEGATIVE) NEGATIVE Urine Ketones (NEGATIVE) TRACE H Urine Blood (NEGATIVE) NEGATIVE Urine Nitrite (NEGATIVE) NEGATIVE Urine Bilirubin (NEGATIVE) NEGATIVE Urine Urobilinogen (0.2 - 1.0 mg/dL) 0.2 Ur Leukocyte Esterase (NEGATIVE) NEGATIVE Urine RBC (0 - 3 RBC/HPF) 0-3 Urine WBC (0 - 3 WBC/HPF) 0-3 Ur Squamous Epith Cells (NONE SEEN /HPF) NONE S EEN Urine Bacteria (NONE SEEN /HPF) NONE SEEN Urine Mucus (NONE SEEN /LPF) TRACE Recent Impressions: CAT SCAN - CTA ABD PEL W CONT 10/05 1544 Report Impression - Status: SIGNED Entered: 10/05/2020 1630 IMPRESSION: 1. Grossly stable aortic root/ascending aortic a neurysm accounting for measurement error. 2. Grossly stable fusiform infrarenal abdominal aortic aneurysm without rupture. 3. 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 4. Patent celiac, mesenteric and renal arterial circulation. 5. 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 6. Cardiomegaly with severe coronary atheroscler osis. 7. No abnormal solid organ enhancement. 8. Left simple renal cyst. SL: [id number] Impression By: Elie tolentino M.D. CAT SCAN - CT ANGIO CHEST 10/05 1544 Report Impression - Status: SIGNED Entered: 10/05/2020 1630 IMPRESSION: 1. Grossly stable aortic root/ascending aortic a neurysm accounting for measurement error. 2. Grossly stable fusiform infrarenal abdominal aortic aneurysm without rupture. 3. 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 4. Patent celiac, mesenteric and renal arterial circulation. 5. 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 6. Cardiomegaly with severe coronary atheroscler osis. 7. No abnormal solid organ enhancement. 8. Left simple renal cyst. SL: [id number] Impression By: Elie tolentino M.D. ECG #1 Interpretation Date 10/05/20 Time 1354 Interpreted by and reviewed by me NL ECG Interpretation Normal rate, No STEMI Rate 82 Rhythm Atrial fibrillation, Ectopic beats - PVC' s Conduction/[place] LBBB - complete Re-Evaluation MDM )( Re-Evaluation/Progress #1 Time of Re-Eval 1739 )( Re-Eval Status Unchanged Pain Re-Evaluation Denies pain Exam Post Tx - General Alert, Vital signs stable Plan Post Re-Eval Plan admit ED Course Medication(s) Ordered Medication(s) Ordered: Anti-Infective Agents Sig/Wood Start time Last Medication Dose Route Stop Time Status Admin Cefazolin Sodium 3 GM PREOP ONCE 10/06 0500 CKD Sodium Chloride 100 ML IV 10/06 2359 Central Nervous System Agents Sig/Wood Start time Last Medication Dose Route Stop Time Status Admin Acetaminophen 650 MG Q4H PRN PRN 10/05 1745 AC PO 10/06 1643 Hydrocodone Bitart/ 1 TAB Q4H PRN PRN 10/05 174 5 AC Acetaminophen PO 10/06 1643 Morphine Sulfate 4 MG Q4H PRN PRN 10/05 1745 AC IV 10/06 1643 Diagnostic Agents Sig/Wood Start time Last Medication Dose Route Stop Time Status Admin Iopamidol 100 ML .STK-MED ONE 10/05 1547 DC IV 10/05 1548 1547 Electrolytic, Caloric, And Simba Sig/Wood Start time Last Medication Dose Route Stop Time Status Admin Sodium Chloride 0 ASDIR PRN 10/05 1415 AC IV 10/06 1311 Gastrointestinal Drugs Sig/Wood Start time Last Medication Dose Route Stop Time Status Admin Ondansetron HCl 4 MG Q6H PRN PRN 10/05 1745 AC IV 10/06 1643 Consultation Consultation Referral/Consult Name Stevo Pereyra MD Assistant [employer]'S [employer] Called CT Surgery Call Returned Time 173 Call Returned Date 10/05/20 Assistant Women'S Tennis Coach Will see patient Free Text Consult Notes States he will fix the AAA tomorrow or the next day Patient Discharge Departure Vital Signs/Condition Vital Signs First Documented: Result Date Time Pulse Ox 96 10/05 1400 B/P 143/90 10/05 1400 B/P Mean 107 10/05 1400 O2 Delivery Room air 10/05 1400 Temp 97.5 10/05 1400 Pulse 71 10/05 1400 Resp 17 10/05 1400 Last Documented: Result Date Time Pulse Ox 95 10/05 1635 B/P 146/84 10/05 1635 B/P Mean 104 10/05 1635 O2 Delivery Room air 10/05 1635 Pulse 50 10/05 1635 Resp 16 10/05 1635 Temp 97.5 10/05 1400 All vital signs available at the time of this en try have been reviewed. Condition Stable Clinical Impression Clinical Impression Primary Impression: Abdominal pain Secondary Impressions: AAA (abdominal aortic ane urysm) without rupture Disposition Decision Admit Admit Physician Name Adis Man MD Admit Physician Hospitalist )( Admission Accepts Yes )( Accepted Time 1745 )( Accepted Date 10/05/20 Discharge/Care Plan Counseled Regarding Imaging studies, Need for ad mission Electronically Signed by William Bernstein MD on 10/05 at 0662 RPT #:[id number] END OF REPORT 2020-10-05 13:54:00-00:00 [id number] [place] [address] PATIENT NAME: ALLYSSA MATIAS ADMIT DATE: 10/05 ACCOUNT NO: [id number] ROOM NO: [facility] AGE: 80 REPORT TYPE: eELECTROCARDIOGRAM REPORT SEX: M ADMITTING PHYSICIAN:Adis Man MD ATTENDING PHYSICIAN:Adis Man MD Order: [id number] Test Reason : ABD PAIN / AAA Test Date/Time Stamp: SatOct 05 2020 13:54:44 Blood Pressure : / mmHG Vent. Rate : 082 BPM Atrial Rate : 105 BPM P-R Int : 000 ms QRS Dur : 178 ms QT Int : 456 ms P-R-T Axes : 000 021 155 degree s QTc Int : 532 ms Atrial fibrillation with pre mature ventricular or aberrantly conducted complexes Left bundle branch block Abnormal ECG Confirmed by ELLIOT SCHWARTZ MD ([id number]) on 10/06/19 7:24:35 AM Referred By: Self Referred Confirmed by:ELLIOT ZUNIGA MD at 6419 PATIENT NAME: ALLYSSA MATIAS [id number]
[2023-05-02 12:43] LABS: Absolute Lymphocytes (CBC) 1.1 K/uL (0.7-4.9); Hematocrit 40.7 % (39.6-49.0); Lymphocytes % 12.9 % (15.3-44.8); MCV 98.6 fL (80-100); Platelets 195 thou/uL (152-406); RBC Red Blood Cell Count 4.13 M/uL (4.33-5.43)
[2023-05-02 13:00] LABS: Albumin 3.1 g/dL (3.4-5.0); Bilirubin Total 0.5 mg/dL (0.2-1.0); Potassium 4.7 mEq/L (3.5-5.1)
[2023-05-02 13:14] LABS: Calcium Oxalate Crystals- Ur Few /HPF (None Seen); Specific Gravity 1.021 (1.005-1.030); Urine Bacteria None Seen /HPF (<20); Urine Bilirubin NEGATIVE (Negative); Urine Blood Negative (Negative); Urine Clarity Extremely Turbid (Clear); Urine Color Yellow (Yellow); Urine Glucose NEGATIVE (Negative); Urine Mucus Slight /HPF (None Seen); Urine Protein 1+ (Negative); Urine RBC <5 /HPF (None Seen); Urine Urobilinogen Normal (Normal)
--- NOTE | 2023-05-02 14:13 | RAD REPORT ---
EXAM DESCRIPTION: CT - Head C Spine Cap Wo Con - 05/02/2023 1:46 pm CLINICAL HISTORY: Trauma, head and neck injury. Chest, abdomen and pelvis pain. abdominal pain, confusion COMPARISON: No comparisons TECHNIQUE: CT head without contrast. CT cervical spine without contrast with coronal and sagittal reformatted images. CT chest, abdomen and pelvis without contrast with coronal and sagittal reformatted images of the spi ne. All CT scans are performed using dose optimization technique as appropriate and may include automated exposure control or mA/KV adjustment according to patient size. FINDINGS: CT HEAD WITHOUT CONTRAST: No intracranial hemorrhage, hydrocephalus or extra-axial fluid collection. No areas of brain edema o r midline shift. Chronic small vessel ischemic changes. Age advanced cerebral atrophy. The paranasal sinuses and mastoids are clear. The calvarium is intact. CT CERVICAL SPINE WITHOUT CONTRAST: No fracture or subluxation. The prevertebral soft tissues are normal in thickness.Multilevel degener ative changes are present in the spine. Varying degrees of neural foraminal narrowing noted. CT CHEST, ABDOMEN, PELVIS WITHOUT CONTRAST: NOTE: Lack of contrast is a significant limitation in the assessment of trauma related findings. Spec ifically, solid organ, vascular and bowel evaluation is significantly limited. The lungs are clear.No pneumothorax or pericardial/pleural fluid. Multi-vessel coronary artery diseas e. No evidence of intra-abdominal visceral injury, free fluid or free air is seen within the above detai led limitations. Status post infrarenal abdominal aortic aneurysm repair the aneurysm sac measures up to 7.5 cm. Too small to characterize and/or benign appearing renal lesions are noted. Circumferentia l bladder wall thickening. Mild prostatomegaly. Small fat containing inguinal hernias. No concerning pelvic findings. No fractures. Multilevel degenerative changes are present in the spine. IMPRESSION: 1. No acute intracranial abnormality. 2. No acute fracture or traumatic malalignment cervical spine. 3. No acute findings within the chest, abdomen, or pelvis. 4. Infrarenal abdominal aortic aneurysm status post aorto bi-iliac stent graft placement. The aneurys m sac measures up to 7.2 cm. Evaluation limited in the absence of prior exams. No findings to suggest impending rupture.
--- NOTE | 2023-05-02 14:29 | EDPHYS ---
Physician Documentation [facility] Name: Juancarlos Cancino Age: 83 yrs Sex: Male : 1940 Arrival Date: 05/02/2023 Time: 12:00 Bed 19 Private MD: ED Physician Jeff Kay HPI: 05/02 12:56 This 83 yrs old Male presents to ER via Wheelchair with complaints of Abdominal Pain. sb4 12:56 The patient presents with abdominal pain in the epigastric area. Onset: The sb4 symptoms/episode began/occurred gradually. The patient has been recently seen by a physician: the patient's primary care provider. 13:27 83 year old male with history of CKD, afib on edoxaban, hypertension presents sb4 complaining of epigastric pain. he states that he has had this pain for a few months now. he saw his PCP in [place] yesterday who did lab work and called him this morning telling him he had worsening kidney function and possible pancreatitis. he endorses decreased appetite, decreased BMs, nausea. Denies prior history of pancreatitis. Denies any chest pain. Historical: - Allergies: 12:17 No Known Allergies; cm10 - PMHx: 12:17 Hypertensive disorder; Kidney disease; cm10 12:18 A-fib; cm10 - Immunization history:: Adult Immunizations up to date. - Social history:: Smoking status: Patient denies any tobacco usage or history of. ROS: 13:27 Constitutional: Negative for fever, chills, and weight loss. sb4 13:27 Abdomen/GI: Positive for abdominal pain, nausea, constipation. 13:27 All other systems are negative. Exam: 13:27 Constitutional: This is a well developed, well nourished patient who is awake, alert, sb4 and in no acute distress. Head/Face: Normocephalic, atraumatic. Eyes: Extra-ocular motions intact. Periorbital areas with no swelling, redness, or edema. ENT: Mucous membranes moist. Cardiovascular: Regular rate and rhythm with a normal S1 and S2. Respiratory: Lungs have equal breath sounds bilaterally, clear to auscultation and percussion. No rales, rhonchi or wheezes noted. No increased work of breathing, no retractions or nasal flaring. Abdomen/GI: Soft, non-tender, no distension. Skin: Warm, dry with normal turgor. Normal color with no rashes, no lesions, and no evidence of cellulitis. MS/ Extremity: Pulses equal, no cyanosis. Neurovascular intact. Full, normal range of motion. Neuro: Awake and alert, GCS 15, oriented to person, place, time, and situation. Cranial nerves II-XII grossly intact. Motor strength 5/5 in all extremities. Sensory grossly intact. Cerebellar exam normal. Normal gait. Vital Signs: 12:15 BP 109 / 60; Pulse 57; Resp 18; Pulse Ox 97% ; Weight 113.4 kg; Height 6 ft. 0 in. ; cm10 13:00 BP 109 / 69; Pulse 63; Resp 18; Pulse Ox 98% on R/A; eh3 16:00 BP 111 / 73; Pulse 70; Resp 18; Pulse Ox 100% on R/A; eh3 12:15 Body Mass Index 33.91 (113.40 kg, 182.88 cm) cm10 MDM: 12:04 Patient medically screened. sb4 13:35 Differential diagnosis: pancreatitis, renal failure, nonspecific abd pain. sb4 14:27 Data reviewed: vital signs, nurses notes, lab test result(s), radiologic studies, and sb4 as a result, I will admit patient. Consideration of Admission/Observation Patient was admitted/placed on observation. Historians other than the Patient: Spouse/Significant Other: . Care significantly affected by the following chronic conditions: Hypertension. Counseling: I had a detailed discussion with the patient and/or guardian regarding the historical points, exam findings, and any diagnostic results supporting the discharge/admit diagnosis, lab results, radiology results, the need for further work-up and treatment in the hospital. 05/02 12:16 Order name: CBC with Diff; Complete Time: 12:51 sb4 05/02 12:16 Order name: CMP; Complete Time: 13:06 sb4 05/02 12:16 Order name: Lipase; Complete Time: 13:06 sb4 05/02 12:16 Order name: Urinalysis w/ reflexes; Complete Time: 13:23 sb4 05/02 13:18 Order name: Urine Culture EDIL 05/02 14:59 Order name: Basic Metabolic Panel EDIL 05/02 14:59 Order name: Basic Metabolic Panel EDIL 05/02 14:59 Order name: CBC with Automated Diff EDMS 05/02 14:59 Order name: CBC with Automated Diff EDMS 05/02 13:07 Order name: Head C Spine Cap Wo Con CT; Complete Time: 14:17 sb4 05/02 14:59 Order name: CONS Physician Consult EDMS 05/02 14:59 Order name: NPO EDMS 05/02 12:16 Order name: IV Saline Lock; Complete Time: 12:45 sb4 05/02 12:16 Order name: Labs collected and sent; Complete Time: 12:45 sb4 EC:27 Rate is 66 beats/min. Rhythm is irregularly irregular, A fib with Left bundle branch sb4 block. QRS interval is normal at 156 msec. QT interval is normal at 482 msec. Clinical impression: Atrial Fibrillation. Administered Medications: 14:45 Drug: NS 0.9% IV 1000 ml Route: IV; Rate: 1 bolus; Site: right antecubital; 3 17:12 Follow up: IV Status: Completed infusion; IV Intake: 1000ml [facility] Disposition Summary: 05/02/23 14:28 Hospitalization Ordered Hospitalization Status: Inpatient Admission sb4 Provider: Renato Hall sb4 Location: Telemetry/MedSurg (Inpatient) sb4 Condition: Fair sb4 Problem: new sb4 Symptoms: are resolved sb4 Bed/Room Type: Standard sb4 Room Assignment: 224(05/02/23 16:37) kj1 Diagnosis - Acute kidney failure, unspecified sb4 - Acute pancreatitis sb4 Forms: - Medication Reconciliation Form sb4 - SBAR form sb4 - Leadership Thank You Letter sb4 Addendum: 05/05/2023 20:25 Co-signature as Attending Physician, Jeff Kay MD I reviewed the patient's care r t provided by the Advanced Practice Provider and agree with the diagnosis and treatment plan. Signatures: Dispatcher [employer] EDIL Yohana Meredith kj1 Destini Chatman RN RN eh3 Shala Cage PA-C PA-C sb4 Jeff Kay MD MD rt Erica Hawk RN RN cm10 Corrections: (The following items were deleted from the chart) 05/02 16:37 14:28 sb4 kj1
--- NOTE | 2023-05-02 14:29 | ER ---
Nurse's Notes [facility] Name: Juancarlos Cancino Age: 83 yrs Sex: Male : 1940 Arrival Date: 05/02/2023 Time: 12:00 Bed 19 Private MD: Diagnosis: Acute kidney failure, unspecified;Acute pancreatitis Presentation: 05/02 12:15 Chief complaint: Patient states: Abdominal pain X3 weeks. Pt also reports that he had cm10 labs done yesterday and was told that he may have pancreatitis and worsening kidney function. Coronavirus screen: Vaccine status: Patient reports receiving the 2nd dose of the covid vaccine. Ebola Screen: Patient denies travel to an Ebola-affected area in the 21 days before illness onset. No symptoms or risks identified at this time. Initial Sepsis Screen: Does the patient meet any 2 criteria? No. Patient's initial sepsis screen is negative. Does the patient have a suspected source of infection? No. Patient's initial sepsis screen is negative. Risk Assessment: Do you want to hurt yourself or someone else? Patient reports no desire to harm self or others. Onset of symptoms was May 02, 2023. 12:15 Method Of Arrival: Wheelchair cm10 12:15 Acuity: NIGEL 3 cm10 Historical: - Allergies: 12:17 No Known Allergies; cm10 - PMHx: 12:17 Hypertensive disorder; Kidney disease; cm10 12:18 A-fib; cm10 - Immunization history:: Adult Immunizations up to date. - Social history:: Smoking status: Patient denies any tobacco usage or history of. Screenin:22 [facility] ED Fall Risk Assessment (Adult) Score/Fall Risk Level 0 - 2 = Low Risk. Abuse eh3 screen: Denies threats or abuse. Denies injuries from another. Nutritional screening: No deficits noted. Tuberculosis screening: No symptoms or risk factors identified. Assessment: 12:22 General: Appears in no apparent distress. uncomfortable, Behavior is cooperative, eh3 appropriate for age, anxious. Pain: Complains of pain in abdomen. Neuro: Level of Consciousness is awake, alert, obeys commands, Oriented to person, place, time, situation. Cardiovascular: Capillary refill < 3 seconds Patient's skin is warm and dry. Respiratory: Airway is patent Respiratory effort is even, unlabored, Respiratory pattern is regular, symmetrical. GI: Abdomen is round non-distended. Derm: Skin is pink, warm \T\ dry. Musculoskeletal: Circulation, motion, and sensation intact. Range of motion: intact in all extremities. 13:00 Reassessment: Patient appears in no apparent distress at this time. Patient and/or 3 family updated on plan of care and expected duration. Pain level reassessed. Patient is alert, oriented x 3, equal unlabored respirations, skin warm/dry/pink. 14:00 Reassessment: Patient appears in no apparent distress at this time. Patient and/or eh3 family updated on plan of care and expected duration. Pain level reassessed. Patient is alert, oriented x 3, equal unlabored respirations, skin warm/dry/pink. 15:00 Reassessment: Patient appears in no apparent distress at this time. Patient and/or 3 family updated on plan of care and expected duration. Pain level reassessed. Patient is alert, oriented x 3, equal unlabored respirations, skin warm/dry/pink. 16:00 Reassessment: Patient appears in no apparent distress at this time. Patient and/or 3 family updated on plan of care and expected duration. Pain level reassessed. Patient is alert, oriented x 3, equal unlabored respirations, skin warm/dry/pink. 16:40 Reassessment: Failed attempt to call report to 2nd floor, called multiple times and [facility] line remained busy. 16:50 Reassessment: Failed attempt to call report to 2nd floor, no answer. Attempted to call [facility] dye house hand, no answer. Vital Signs: 12:15 BP 109 / 60; Pulse 57; Resp 18; Pulse Ox 97% ; Weight 113.4 kg; Height 6 ft. 0 in. ; cm10 13:00 BP 109 / 69; Pulse 63; Resp 18; Pulse Ox 98% on R/A; eh3 16:00 BP 111 / 73; Pulse 70; Resp 18; Pulse Ox 100% on R/A; eh3 12:15 Body Mass Index 33.91 (113.40 kg, 182.88 cm) cm10 ED Course: 12:03 Patient arrived in ED. ts1 12:04 Shala Cage PA-C is PHCP. sb4 12:04 Jeff Kay MD is Attending Physician. sb4 12:17 Triage completed. cm10 12:17 Arm band placed on Patient placed in an exam room. cm10 12:22 Destini Chatman, RN is Primary Nurse. eh3 12:22 Patient has correct armband on for positive identification. Provided Education on: Use eh3 of call ramey. Client placed on continuous cardiac and pulse oximetry monitoring. NIBP monitoring applied. 12:30 Inserted saline lock: 20 gauge in right antecubital area, using aseptic technique. eh3 Blood collected. 12:57 Urine collected: clean catch specimen, clear. aw1 12:57 EKG done, by ED staff. aw1 13:48 Head C Spine Cap Wo Con CT In Process Unspecified. EDMS 14:27 Renato Hall MD is Hospitalizing Provider. sb4 17:13 No provider procedures requiring assistance completed. Patient admitted, IV remains in eh3 place. Administered Medications: 14:45 Drug: NS 0.9% IV 1000 ml Route: IV; Rate: 1 bolus; Site: right antecubital; eh3 17:12 Follow up: IV Status: Completed infusion; IV Intake: 1000ml eh3 Medication: 17:13 VIS not applicable for this client. eh3 Intake: 17:12 IV: 1000ml; Total: 1000ml. eh3 Outcome: 14:28 Decision to Hospitalize by Provider. sb4 17:33 Admitted to Med/surg accompanied by nurse, via wheelchair, room 224, Report called to 3 Bedside report received by Priti 17:33 Condition: stable 17:33 Instructed on the need for admit. 17:34 Patient left the ED. 3 Signatures: Dispatcher [employer] EDKS Destini Chatman, RN RN 3 Shala Cage, PRANAV PAMadelaine Crawford PAS PAS ts1 Erica Hawk, RN RN cm10 Saray Marie aw1
[2023-05-02] MEDS ORDERED: ONDANSETRON 4 MG/2 ML VIAL IV PRN (14:44)
[2023-05-02] MEDS ORDERED: ACETAMINOPHEN 325 MG TABLET PO PRN (14:44)
--- NOTE | 2023-05-02 15:00 | P.HP ---
Certification for Inpatient Patient admitted to: Observation With expected LOS: <2 Midnights Practitioner: I am a practitioner with admitting privileges, knowledge of patient current condition, hospital course, and medical plan of care. Services: Services provided to patient in accordance with Admission requirements found in Title 42 Section 412.3 of the Code of Federal Regulations Patient History Date of Service: 05/02/23 Reason for admission: Pancreatitis, abdominal pain History of Present Illness: 83-year-old male patient who was evaluated in the emergency room for episode of abdominal discomfort, constipation and episode of nausea. He reported that he been having abdominal pain for a couple of days. Pain is rated 5 out of 10 in intensity and located in the epigastric region. he describes pain as some sort of a gnawing pain that is worsened by intake of food so he has not eaten in a couple of days. In the ED labs are reviewed and he has elevated lipase of 200 a nd elevated creatinine of 2.9 raising concern for acute kidney injury. He was given IV fluid and he was admitted for inpatient care. He notably has been drinking a lot of alcohol recently and there is concern for alcohol induced pancreatitis. Review of Systems General: Unremarkable Eyes: Unremarkable ENT: Unremarkable Respiratory: Unremarkable Cardiovascular: Unremarkable Gastrointestinal: Nausea, Abdominal Pain, Constipation Genitourinary: Unremarkable Musculoskeletal: Unremarkable Integumentary: Unremarkable Neurological: Unremarkable Physical Examination - Physical Exam General: Alert, Oriented x3 HEENT: Atraumatic, Normocephalic Neck: Supple Respiratory: Normal air movement Cardiovascular: Regular rate/rhythm, Normal S1 S2 Gastrointestinal: Tenderness (in epigastrium) Neurological: Normal speech, Normal strength at 5/5 x4 extr - Studies Laboratory Data (last 24 hrs) 05/02/23 05/02/23 12:30 12:30 WBC 8.60 Hgb 13.4 L Hct 40.7 Plt Count 195 Sodium 136 Potassium 4.7 BUN 78 H Creatinine 2.91 H Glucose 109 H Total Bilirubin 0.5 AST 19 ALT 22 Alkaline Phosphatase 95 Lipase 241 H Assessment and Plan - Plan FLAQUITO: Deemed secondary to pancreatitis episode. Creatinine stable at 2.91. We will continue IV hydration with lactated Ringer's. We will have nephrology evaluate patient Pancreatitis: Deemed secondary to alcohol induced pancreatitis episode. We have started n.p.o. status. Continue to monitor symptomatology. We will continue as needed pain control with IV morphine. Prophylaxis: Heparin for DVT prophylaxis Code status: Full code Disposition: We will treat pancreatitis episode and discharge home once he is clinically stable - Advance Directives Does patient have a Living Will: No Does patient have a Durable POA for Healthcare: No
[2023-05-02] MEDS ORDERED: NA CHLORIDE 0.9% 1,000 ML ONE (15:06)
[2023-05-02] MEDS ORDERED: SODIUM CHLORIDE 0.9% 10ML INJ IV PRN (16:02)
[2023-05-02] MEDS: Ringers Lactate 1,000 ML IV SCH (17:45)
[2023-05-02] MEDS: HEPARIN 5000 UNIT/ML 1 ML VIAL SQ SCH (17:45)
[2023-05-02 18:17] VITALS: O2SAT 100
[2023-05-02 18:22] VITALS: BMI 33.9
[2023-05-02] MEDS: PANTOPRAZOLE 40 MG INJ IVP SCH (20:43)
[2023-05-03] MEDS: HEPARIN 5000 UNIT/ML 1 ML VIAL SQ SCH ×2 (01:19→09:01)
[2023-05-03] MEDS: Ringers Lactate 1,000 ML IV SCH ×2 (01:22→08:59)
[2023-05-03 03:04] LABS: Absolute Lymphocytes (CBC) 1.4 K/uL (0.7-4.9); Hematocrit 40.8 % (39.6-49.0); Lymphocytes % 18.3 % (15.3-44.8); MCV 98.4 fL (80-100); MPV 9.5 fL (7.6-11.3); Platelets 172 thou/uL (152-406); RBC Red Blood Cell Count 4.15 M/uL (4.33-5.43)
[2023-05-03 03:13] LABS: Potassium 4.1 mEq/L (3.5-5.1)
[2023-05-03] MEDS: PANTOPRAZOLE 40 MG INJ IVP SCH (09:00)
[2023-05-03] MEDS ORDERED: BISACODYL 10 MG RECTAL SUPP PR ONE (10:00)
[2023-05-03 12:30] VITALS: BP 119/72; TEMP 97.3
--- NOTE | 2023-05-03 13:11 | P.DS ---
Admission Date: 05/02/23 Discharge Date: 05/03/23 Disposition: ROUTINE DISCHARGE Discharge Condition: GOOD Reason for Admission: Pancreatitis, abdominal pain Brief History of Present Illness: 83-year-old male patient who was evaluated in the emergency room for episode of abdominal discomfort, constipation and episode of nausea. He reported that he been having abdominal pain for a couple of days. Pain is rated 5 out of 10 in intensity and located in the epigastric region. he describes pain as some sort of a gnawing pain that is worsened by intake of food so he has not eaten in a couple of days. In the ED labs are reviewed and he has elevated lipase of 200 and elevated creatinine of 2.9 raising concern for acute kidney injury. He was given IV fluid and he was admitted for inpatient care. He notably has been drinking a lot of alcohol recently and there is concern for alcohol induced pancreatitis. Hospital Course: He was started on IV fluid and PPI therapy for abd pain. he responded well to treatment and he feels better. he also had dulcolax and he had resolution of constipation. he was deemed stable for dc and he was given a prescription of dulolax and pantoprazole for GI related issues. he will follow up with his PCP and GI specialist in 1-2 weeks. Vital Signs/Physical Exam: Temp Pulse Resp BP Pulse Ox 97.3 F 67 18 119/72 98 05/03/23 12:00 05/03/23 12:00 05/03/23 12:00 05/03/23 12:00 05/03/23 12:00 Laboratory Data at Discharge: WBC 7.60 thou/uL (4.3-10.9) 05/03/23 02:27 Hgb 13.9 g/dL (13.6-17.9) 05/03/23 02:27 Hct 40.8 % (39.6-49.0) 05/03/23 02:27 Plt Count 172 thou/uL (152-406) 05/03/23 02:27 Sodium 136 mEq/L (136-145) 05/03/23 02:27 Potassium 4.1 mEq/L (3.5-5.1) 05/03/23 02:27 BUN 64 mg/dL (7-18) H 05/03/23 02:27 Creatinine 1.85 mg/dL (0.70-1.30) H 05/03/23 02:27 Glucose 101 mg/dL (74-106) 05/03/23 02:27 Total Bilirubin 0.5 mg/dL (0.2-1.0) 05/02/23 12:30 AST 19 U/L (15-37) 05/02/23 12:30 ALT 22 U/L (16-61) 05/02/23 12:30 Alkaline Phosphatase 95 U/L (45-117) 05/02/23 12:30 Lipase 241 U/L (13-75) H 05/02/23 12:30 Home Medications: Amlodipine [Norvasc*] 1 tab PO DAILY 05/03/23 Carvedilol [Coreg] 1 tab PO BID 05/03/23 Doxycycline Hyclate 1 tab PO BID 05/03/23 Edoxaban Tosylate [Savaysa] 1 tab PO DAILY 05/03/23 Gabapentin [Neurontin*] 1 tab PO TID 05/03/23 Hydralazine [Apresoline*] 1 tab PO BID 05/03/23 Levothyroxine Sodium 1 tab PO DAILY 05/03/23 Losartan Potassium 1 tab PO DAILY 05/03/23 Omeprazole 1 tab PO DAILY 05/03/23 Spironolactone [Aldactone*] 1 tab PO DAILY 05/03/23 hydroCHLOROthiazide [Hydrodiuril*] 1 tab PO DAILY 05/03/23 Diet: Regular Activity: Ad susan Followup: TYESHA DYKES [Primary Care Provider] -
--- NOTE | 2023-05-03 15:19 | P.CNS ---
Date of Consult: 05/03/23 Reason for Consult: FLAQUITO Requesting Physician: Renato Hall Chief Complaint: Pancreatitis, abdominal pain History of Present Illness: 83M w/ PMHx of Htn, afib on edoxaban, & etoh abuse, who p/w a 2-day hx of epigastric pain, nausea & constipation, admitted for possible etoh-induced pancreatitis. He is referred to Nephrology for FLAQUITO. SCr 2.9 on adm. He received IVF. SCr improved to 1.9 today. He has pyuria & trace proteinuria, no hematuria. He has mild acidosis. Allergies No Known Allergies Allergy (Unverified 05/02/23 17:31) Home Medications: Amlodipine [Norvasc*] 1 tab PO DAILY 05/03/23 Carvedilol [Coreg] 1 tab PO BID 05/03/23 Doxycycline Hyclate 1 tab PO BID 05/03/23 Edoxaban Tosylate [Savaysa] 1 tab PO DAILY 05/03/23 Gabapentin [Neurontin*] 1 tab PO TID 05/03/23 Hydralazine [Apresoline*] 1 tab PO BID 05/03/23 Levothyroxine Sodium 1 tab PO DAILY 05/03/23 Losartan Potassium 1 tab PO DAILY 05/03/23 Omeprazole 1 tab PO DAILY 05/03/23 Spironolactone [Aldactone*] 1 tab PO DAILY 05/03/23 hydroCHLOROthiazide [Hydrodiuril*] 1 tab PO DAILY 05/03/23 Review of Systems General: Unremarkable Eyes: Unremarkable ENT: Unremarkable Respiratory: Unremarkable Cardiovascular: Unremarkable Gastrointestinal: Nausea, Abdominal Pain, Constipation Genitourinary: Unremarkable Musculoskeletal: Unremarkable Integumentary: Unremarkable Neurological: Unremarkable Lymphatics: Unremarkable Physical Examination Temp Pulse Resp BP Pulse Ox 97.3 F 67 18 119/72 98 05/03/23 12:00 05/03/23 12:00 05/03/23 12:00 05/03/23 12:00 05/03/23 12:00 General: In no apparent distress HEENT: Atraumatic, Normocephalic Neck: Supple Respiratory: Clear to auscultation bilaterally Cardiovascular: No rubs, No murmurs Gastrointestinal: Soft and benign, No guarding Musculoskeletal: No clubbing Integumentary: No warmth Neurological: Normal speech, Normal tone Lymphatics: No axilla or inguinal lymphadenopathy Urinary: Other (No bladder distention) External genitalia: Deferred Rectal: Deferred Conclusions/Impression: # FLAQUITO, prerenal Improved [place] po fluid intake > 2L/d Recheck renal panel in 2 wks # Acute alcoholic pancreatitis IVF, po food intake as able Alcohol cessation advised #Afib Edoxaban # Acidosis Mild, monitor, liberal po fluid intake
--- NOTE | 2023-05-06 18:10 | EKG ---
Test Date: 2023-05-02 Test Time: 12:18:46 Control Systems Specialist: BEE MEASUREMENT RESULTS: Intervals: Rate: 66 MO: QRSD: 156 QT: 482 QTc: 505 [place]: P: MO: QRS: -65 T: 125 INTERPRETIVE STATEMENTS: Atrial fibrillation with premature ventricular or aberrantly conducted complexes Left axis deviation Left bundle branch block Abnormal ECG No previous ECG available for comparison Electronically Signed On 05-06-23 18:01:10 CDT by Pk Allen
== END 2023-05-03 15:32 | disposition home or self-care (01) ==
LOC: ER 12:00 → ERHOLD 14:11 → 2ND 17:05
PROVIDERS: ADMIT Internal Medicine Nephrology; ATTEND Internal Medicine Nephrology
DX: K85.20 Alcohol induced acute pancreatitis without necrosis or infection (principal); N17.9 Acute kidney failure, unspecified; I48.11 Longstanding persistent atrial fibrillation; Z79.01 Long term (current) use of anticoagulants; E87.20 Acidosis, unspecified; K59.00 Constipation, unspecified; R11.0 Nausea; R10.9 Unspecified abdominal pain
CPT/HCPCS: 36415; 70450; 71250; 72125; 80048; 80053; 81001; 83690; 85025; 87086; 87088; 93005; 96360; 96361; 99285; C9113; G0378; J1644; J7030; J7120

== ENCOUNTER 2024-03-20 11:43 | Inpatient (IN) | payer OTHER ==
--- OUTSIDE RECORDS SUMMARY | 2024-03-20 11:46 | XMS REPORT | Continuity of Care Document ---
Author Name Unknown Address [address] [facility] [address] [place] [address] [facility] Address [address] [facility] [address] [place] [address] Care Team Providers Care Template Reproduction Technician Name Role Phone William Bernstein Attending Clinician Unavailable Stevo Pereyra Attending Clinician Yimi Sanchez Attending Clinician Unavailable Yimi Dykes Admitting Clinician Unavailable Payers Payer Name Policy Type Policy Number Effective Date Expirati on Date Source Allergies, Adverse Reactions, Alerts Allergy Name Allergy Type Status Severity Reaction(s) Onset Date Inactive Date Treating Clinician Comments Source No Known Drug Allergie s DA Active U 10-05 00:00: 00 [facility] No Known Drug Allergie s DA Active U 10-05 00:00: 00 [facility] amlodipi ne DA Active U 09-27 00:00: 00 [facility] hydralaz ine DA Active U - 00:00: 00 [facility] levothyr oxine DA Active U - 00:00: 00 [facility] edoxaban DA Active U 09-27 00:00: 00 [facility] amlodipi ne DA Active U UNKNOWN - 00:00: 00 [facility] hydralaz ine DA Active U UNKNOWN 09-27 00:00: 00 [facility] levothyr oxine DA Active U UNKNOWN 09-27 00:00: 00 [facility] edoxaban DA Active U UNKNOWN 09-27 00:00: 00 [facility] Procedures Procedure Date / Time Performed Performing Clinicia n Source [id number] 2020-10-06 00:00:00 [facility]01 [facility] [id number] 2020-10-06 00:00:00 [facility]01 [facility] [id number] 2020-10-06 00:00:00 [facility]01 [facility] Encounters Start Date/Time End Date/Time Encounter Type Admission Type Attending [facility] Care Facility Care Department Encounter ID Source 2020-10-05 13:47:00 2020-10-05 13:47:00 Emergency EM William Bernstein [facility] [id number] 62 [facility] 2020-09-27 09:30:00 2020-09-27 09:30:00 Outpatient AndisusanKaylyn [facility] [id number] 99 [facility] 2020-08-30 16:00:00 2020-08-30 16:00:00 Outpatient Yimi Dykes [facility] [place] [id number] 22 [facility] Results Test Description Test Time Test Comments Results Result Co mments Source CBC W/AUTO [id number] 04:16:00* Test Item Value Reference Range Interpretation Comme nts WHITE BLOOD CELL (test code = WBC) 10.5 x10 3/uL 4.5-11.0 RED BLOOD CELL (test code = RBC) 4.49 x10 6/uL 4.00-5.60 N HEMOGLOBIN (test code = HGB) 14.3 g/dL 12.5-16.9 N HEMATOCRIT (test code = HCT) 43.2 % 37.5-50.7 N MEAN CELL VOLUME (test code = MCV) 96.2 fL 81.0-99.0 N MEAN CELL HGB (test code = MCH) 31.8 pg 27.0-33.0 N MEAN CELL HGB CONCETRATION (test code = MCHC) 33.1 g/dL 33.0-37.0 N RED CELL DISTRIBUTION WIDTH CV (test code = RDW) 13.8 % 11.5-14.5 N RED CELL DISTRIBUTION WIDTH SD (test code = RDW-SD) 48.8 fL 37.0-54.0 N PLATELET COUNT (test code = PLT) 180 x10 3/uL 150-400 N MEAN PLATELET VOLUME (test c ode = MPV) 11.3 fL 7.0-9.0 H NEUTROPHIL % (test code = NT%) 80.1 % 56.0-77.0 H IMMATURE GRANULOCYTE % (test code = IG%) 0.5 % 0.0-2.0 N LYMPHOCYTE % (test code = LY%) 10.2 % 14.0-32.0 L MONOCYTE % (test code = MO%) 9.1 % 4.8-9.0 H EOSINOPHIL % (test code = EO%) 0.0 % 0.3-3.7 L BASOPHIL % (test code = BA%) 0.1 % 0.0-2.0 N NUCLEATED RBC % (test code = NRBC%) 0.0 % 0-0 N NEUTROPHIL # (test code = NT#) 8.41 x10 3/uL 2.0-7.6 H IMMATURE GRANULOCYTE # (test code = IG#) 0.05 x10 3/uL 0.00-0.03 H LYMPHOCYTE # (test code = LY#) 1.07 x10 3/uL 1.0-3.8 N MONOCYTE # (test code = MO#) 0.95 x10 3/uL 0.1-0.8 H EOSINOPHIL # (test code = EO#) 0.00 x10 3/uL 0.0-0.2 N BASOPHIL # (test code = BA#) 0.01 x10 3/uL 0.0-0.2 N NUCLEATED RBC # (test code = NRBC#) 0.00 x10 3/uL 0.0-0.1 N MANUAL DIFF REQUIRED (test c ode = MDIFF) NO COMPREHENSIVE METABOLIC [id number] 13:52:00* Test Item Value Reference Range Interpretation Comme nts SODIUM (test code = NA) 137 mEq/L 134-147 N POTASSIUM (test code = K) 3.7 mEq/L 3.4-5.0 N CHLORIDE (test code = CL) 107 mEq/L 100-108 N CARBON DIOXIDE (test code = CO2) 25 mEq/l 21-33 N ANION GAP (test code = GAP) 9 0-20 N GLUCOSE (test code = GLU) 150 mg/dL 70-110 H BLOOD UREA NITROGEN (test code = BUN) 18 mg/dL 7-18 N GLOMERULAR FILTRATION RATE (test code = GFR) 81.6 70-80 H Units of measure = ml/min/1.73 m2 CREATININE (test code = CREAT) 0.9 mg/dL 0.6-1.3 N TOTAL PROTEIN (test code = PROT) 6.9 g/dL 6.4-8.2 N ALBUMIN (test code = ALB) 3.40 g/dL 3.4-5.0 N CALCIUM (test code = CA) 9.4 mg/dL 8.0-10.5 N BILIRUBIN TOTAL (test code = BILT) 0.70 mg/dL 0.0-1.0 N SGOT/AST (test code = AST) 26 IUnit/L 15-37 N SGPT/ALT (test code = ALT) 18 IUnit/L 30-65 L ALKALINE PHOSPHATASE TOTAL (test code = ALKP) 69 IUnit/L 20-125 N [id number] 13:52:00* Test Item Value Reference Range Interpretation Comme nts PHOSPHOROUS (test code = PHOS) 2.4 MG/DL 2.5-4.9 L [id number] 13:52:00* Test Item Value Reference Range Interpretation Comme nts MAGNESIUM (test code = MAG) 1.71 mg/dL 1.80-2.40 L CALCIUM [id number] 13:52:00* Test Item Value Reference Range Interpretation Comme nts CALCIUM IONIZED (test code = ARIANNA) 1.19 MMOL/L 1.12-1.32 N PROTHROMBIN [id number] 13:30:00* Test Item Value Reference Range Interpretation Comme nts PROTHROMBIN TIME PATIENT (test code = PTP) 14.9 SECONDS 9.3-12.9 H INTERNATIONAL NORMAL RATIO (test code = INR) 1.4 0.8-1.2 H TARGET INR BY INDICATION Indication INR1. Prophylaxis of venous thrombosis 2.0 - 3.0 (orthopedic surgery), Prophylaxis of venous thrombosis (other than high-risk surgery), Treatment of Deep Vein Thrombosis/Pulmonary Embolism, Prevention of systemic embolism - Tissue heart valves, Acute Myocardial Infarction (to prevent systemic embolism), Valvular heart disease, Atrial Fibrillation, Bileaflet mechanical valve in aortic position.2. Mechanical prosthetic valves (high risk), 2.5 - 3.5 Presence of Lupus Anticoagulant or Antiphospholipid Antibodies, Prevention of systemic embolism - Acute Myocardial Infarction (to prevent recurrent infarct). LACTIC [id number] 13:29:00* Test Item Value Reference Range Interpretation Comme nts LACTIC ACID (test code = LACT) 1.0 mmol/L 0.4-1.9 N COMPREHENSIVE METABOLIC [id number] 13:21:00* Test Item Value Reference Range Interpretation Comme nts SODIUM (test code = NA) mEq/L 134-147 POTASSIUM (test code = K) mEq/L 3.4-5.0 CHLORIDE (test code = CL) mEq/L 100-108 CARBON DIOXIDE (test code = CO2) mEq/l 21-33 ANION GAP (test code = GAP) 0-20 GLUCOSE (test code = GLU) mg/dL 70-110 BLOOD UREA NITROGEN (test code = BUN) mg/dL 7-18 GLOMERULAR FILTRATION RATE ( test code = GFR) 70-80 CREATININE (test code = CREAT) mg/dL 0.6-1.3 TOTAL PROTEIN (test code = PROT) g/dL 6.4-8.2 ALBUMIN (test code = ALB) g/dL 3.4-5.0 CALCIUM (test code = CA) mg/dL 8.0-10.5 BILIRUBIN TOTAL (test code = BILT) mg/dL 0.0-1.0 SGOT/AST (test code = AST) IUnit/L 15-37 SGPT/ALT (test code = ALT) IUnit/L 30-65 ALKALINE PHOSPHATASE TOTAL ( test code = ALKP) IUnit/L 20-125 [id number] 13:21:00* Test Item Value Reference Range Interpretation Comme nts PHOSPHOROUS (test code = PHOS) MG/DL 2.5-4.9 [id number] 13:21:00* Test Item Value Reference Range Interpretation Comme nts MAGNESIUM (test code = MAG) mg/dL 1.80-2.40 CALCIUM [id number] 13:21:00* Test Item Value Reference Range Interpretation Comme nts CALCIUM IONIZED (test code = ARIANNA) 1.19 MMOL/L 1.12-1.32 N CBC W/AUTO [id number] 13:20:00* Test Item Value Reference Range Interpretation Comme nts WHITE BLOOD CELL (test code = WBC) 6.8 x10 3/uL 4.5-11.0 N RED BLOOD CELL (test code = RBC) 4.58 x10 6/uL 4.00-5.60 N HEMOGLOBIN (test code = HGB) 14.9 g/dL 12.5-16.9 N HEMATOCRIT (test code = HCT) 43.9 % 37.5-50.7 N MEAN CELL VOLUME (test code = MCV) 95.9 fL 81.0-99.0 N MEAN CELL HGB (test code = MCH) 32.5 pg 27.0-33.0 N MEAN CELL HGB CONCETRATION (test code = MCHC) 33.9 g/dL 33.0-37.0 N RED CELL DISTRIBUTION WIDTH CV (test code = RDW) 14.0 % 11.5-14.5 N RED CELL DISTRIBUTION WIDTH SD (test code = RDW-SD) 49.3 fL 37.0-54.0 N PLATELET COUNT (test code = PLT) 165 x10 3/uL 150-400 N MEAN PLATELET VOLUME (test c ode = MPV) 11.2 fL 7.0-9.0 H NEUTROPHIL % (test code = NT%) 85.3 % 56.0-77.0 H IMMATURE GRANULOCYTE % (test code = IG%) 0.6 % 0.0-2.0 N LYMPHOCYTE % (test code = LY%) 11.3 % 14.0-32.0 L MONOCYTE % (test code = MO%) 2.4 % 4.8-9.0 L EOSINOPHIL % (test code = EO%) 0.1 % 0.3-3.7 L BASOPHIL % (test code = BA%) 0.3 % 0.0-2.0 N NUCLEATED RBC % (test code = NRBC%) 0.0 % 0-0 N NEUTROPHIL # (test code = NT#) 5.76 x10 3/uL 2.0-7.6 N IMMATURE GRANULOCYTE # (test code = IG#) 0.04 x10 3/uL 0.00-0.03 H LYMPHOCYTE # (test code = LY#) 0.76 x10 3/uL 1.0-3.8 L MONOCYTE # (test code = MO#) 0.16 x10 3/uL 0.1-0.8 N EOSINOPHIL # (test code = EO#) 0.01 x10 3/uL 0.0-0.2 N BASOPHIL # (test code = BA#) 0.02 x10 3/uL 0.0-0.2 N NUCLEATED RBC # (test code = NRBC#) 0.00 x10 3/uL 0.0-0.1 N MANUAL DIFF REQUIRED (test c ode = MDIFF) NO [id number] 09:29:00* Test Item Value Reference Range Interpretation Comme nts ACT-ISTAT (test code = ACTI) 219 SEC 74-137 H Performed by cer tified dough mixer operator at [facility] [id number] 08:25:00* Test Item Value Reference Range Interpretation Comme nts ACT-ISTAT (test code = ACTI) 268 SEC 74-137 H Performed by [employer] tified dough mixer operator at [facility] PROTHROMBIN [id number] 06:18:00* Test Item Value Reference Range Interpretation Comme nts PROTHROMBIN TIME PATIENT (test code = PTP) 13.9 SECONDS 9.3-12.9 H INTERNATIONAL NORMAL RATIO (test code = INR) 1.3 0.8-1.2 H TARGET INR BY INDICATION Indication INR1. Prophylaxis of venous thrombosis 2.0 - 3.0 (orthopedic surgery), Prophylaxis of venous thrombosis (other than high-risk surgery), Treatment of Deep Vein Thrombosis/Pulmonary Embolism, Prevention of systemic embolism - Tissue heart valves, Acute Myocardial Infarction (to prevent systemic embolism), Valvular heart disease, Atrial Fibrillation, Bileaflet mechanical valve in aortic position.2. Mechanical prosthetic valves (high risk), 2.5 - 3.5 Presence of Lupus Anticoagulant or Antiphospholipid Antibodies, Prevention of systemic embolism - Acute Myocardial Infarction (to prevent recurrent infarct). COMMENTS: please add to am labCOMPREHENSIVE METABOLIC [id number] 05:50:00* Test Item Value Reference Range Interpretation Comme nts SODIUM (test code = NA) 139 mEq/L 134-147 N POTASSIUM (test code = K) 3.5 mEq/L 3.4-5.0 N CHLORIDE (test code = CL) 104 mEq/L 100-108 N CARBON DIOXIDE (test code = CO2) 28 mEq/l 21-33 N ANION GAP (test code = GAP) 10 0-20 N GLUCOSE (test code = GLU) 112 mg/dL 70-110 H BLOOD UREA NITROGEN (test code = BUN) 18 mg/dL 7-18 N GLOMERULAR FILTRATION RATE (test code = GFR) 72.3 70-80 N Units of measure = ml/min/1.73 m2 CREATININE (test code = CREAT) 1.0 mg/dL 0.6-1.3 N TOTAL PROTEIN (test code = PROT) 7.6 g/dL 6.4-8.2 N ALBUMIN (test code = ALB) 3.80 g/dL 3.4-5.0 N CALCIUM (test code = CA) 9.0 mg/dL 8.0-10.5 N BILIRUBIN TOTAL (test code = BILT) 0.80 mg/dL 0.0-1.0 N SGOT/AST (test code = AST) 28 IUnit/L 15-37 N SGPT/ALT (test code = ALT) 17 IUnit/L 30-65 L ALKALINE PHOSPHATASE TOTAL (test code = ALKP) 74 IUnit/L 20-125 N LIPID PROFILE (CORONARY RISK)2020-10-06 05:50:00* Test Item Value Reference Range Interpretation Comme nts TRIGLYCERIDES (test code = TRIG) 83 mg/dL 40-150 N CHOLESTEROL (test code = CHOL) 165 mg/dL <200 CHOLESTEROL/HDL RATIO (test code = CHOLHDL) 3.47 RATIO 3.43-4.97 N RISK ASSOCIATED WITH CHOL/HDL RATIOS: RISK MALE FEMALE1/2 AVERAGE 3.43 3.27AVERAGE 4.97 4.442X AVERAGE 9.55 7.053X AVERAGE 23.39 11.04 NOTE THAT THE REFERENCE VALUE IS RELATEDTO RISK LEVELS RECOMMENDED BY THE NATL.HEART, LUNG, AND BLOOD INST. HDL CHOLESTEROL (test code = HDL) 47.5 mg/dL 32-72 N LIPOPROTEIN LDL (test code = LDL) 117.7 mg/dL 0-100 H <100 [id number] 0-129 NEAR OPTIMAL/ABOVE [id number] HIGH>BP=291 VERY HIGH*Guidelines provided by the National Cholesterol EducationProgram Adult Treatment Panel III TSH REFLEX TO [id number] 05:50:00* Test Item Value Reference Range Interpretation Comme nts TSH REFLEX TO FT4 (test code = TSHREFLEX) 0.83 IU/mL 0.42-5.47 N THROMBOPLASTIN TIME [id number] 05:39:00* Test Item Value Reference Range Interpretation Comme nts THROMBOPLASTIN TIME PARTIAL (test code = PTT) 37.2 Seconds 25.0-39.5 N Therapeutic Rang e: 50.4 - 88.3 Seconds Effective 12/30/2018 CBC W/AUTO [id number] 05:36:00* Test Item Value Reference Range Interpretation Comme nts WHITE BLOOD CELL (test code = WBC) 5.6 x10 3/uL 4.5-11.0 N RED BLOOD CELL (test code = RBC) 4.86 x10 6/uL 4.00-5.60 N HEMOGLOBIN (test code = HGB) 15.7 g/dL 12.5-16.9 N HEMATOCRIT (test code = HCT) 47.3 % 37.5-50.7 N MEAN CELL VOLUME (test code = MCV) 97.3 fL 81.0-99.0 N MEAN CELL HGB (test code = MCH) 32.3 pg 27.0-33.0 N MEAN CELL HGB CONCETRATION (test code = MCHC) 33.2 g/dL 33.0-37.0 N RED CELL DISTRIBUTION WIDTH CV (test code = RDW) 13.9 % 11.5-14.5 N RED CELL DISTRIBUTION WIDTH SD (test code = RDW-SD) 50.5 fL 37.0-54.0 N PLATELET COUNT (test code = PLT) 181 x10 3/uL 150-400 N MEAN PLATELET VOLUME (test c ode = MPV) 10.6 fL 7.0-9.0 H NEUTROPHIL % (test code = NT%) 54.8 % 56.0-77.0 L IMMATURE GRANULOCYTE % (test code = IG%) 0.4 % 0.0-2.0 N LYMPHOCYTE % (test code = LY%) 30.1 % 14.0-32.0 N MONOCYTE % (test code = MO%) 11.2 % 4.8-9.0 H EOSINOPHIL % (test code = EO%) 2.8 % 0.3-3.7 N BASOPHIL % (test code = BA%) 0.7 % 0.0-2.0 N NUCLEATED RBC % (test code = NRBC%) 0.0 % 0-0 N NEUTROPHIL # (test code = NT#) 3.09 x10 3/uL 2.0-7.6 N IMMATURE GRANULOCYTE # (test code = IG#) 0.02 x10 3/uL 0.00-0.03 N LYMPHOCYTE # (test code = LY#) 1.70 x10 3/uL 1.0-3.8 N MONOCYTE # (test code = MO#) 0.63 x10 3/uL 0.1-0.8 N EOSINOPHIL # (test code = EO#) 0.16 x10 3/uL 0.0-0.2 N BASOPHIL # (test code = BA#) 0.04 x10 3/uL 0.0-0.2 N NUCLEATED RBC # (test code = NRBC#) 0.00 x10 3/uL 0.0-0.1 N MANUAL DIFF REQUIRED (test c ode = MDIFF) NO COVID 19 Asymptomatic IH [id number] 18:18:00* Test Item Value Reference Range Interpretation Comme nts COVID 19 Asymptomatic IH AG (test code = COVNONPUIAG) Negative Negative A negative resul t is presumptive and should be confirmedwith an FDA authorized molecular assay, if necessary forpatient management.A positive result does not rule out co-infections withother pathogens.This test detects both viable (live) and non-viable,SARS-CoV, and SARS-CoV-2. Test performance depends on theamount of virus (antigen) in the sample.This test has not been FDA cleared or approved; the test hasbeen authorized by FDA under an Emergency Use Authorization(EUA) for use by laboratories certified under the CLIA thatmeet the requirements to perform moderate, high or waivedcomplexity tests. COMMENTS: If not done this admissionUA RFLX MICR CULT IF [id number] 17:25:00* Test Item Value Reference Range Interpretation Comme nts UA COLOR (test code = COLU) STRAW YEL/STRAW UA APPEARANCE (test code = APPU) CLEAR CLEAR UA GLUCOSE DIPSTICK (test co de = DGLUU) NEGATIVE NEGATIVE UA BILIRUBIN DIPSTICK (test code = BILU) NEGATIVE NEGATIVE UA KETONE DIPSTICK (test cod e = KETU) TRACE NEGATIVE A UA SPECIFIC GRAVITY (test co de = SGU) 1.021 1.005-1.030 N UA BLOOD DIPSTICK (test code = DOMINGA) NEGATIVE NEGATIVE UA PH DIPSTICK (test code = HARRISON) 7.0 5.0-7.0 N UA PROTEIN DIPSTICK (test co de = PROU) NEGATIVE NEGATIVE UA UROBILINIOGEN DIPSTICK (test code = URO) 0.2 mg/dL 0.2-1.0 UA NITRITE DIPSTICK (test co de = SHELTON) NEGATIVE NEGATIVE UA LEUKOCYTE ESTERASE DIPSTI CK (test code = LEUU) NEGATIVE NEGATIVE UA WBC (test code = WBCU) 0-3 WBC/HPF 0-3 UA RBC (test code = RBCU) 0-3 RBC/HPF 0-3 UA WBC NO REFLEX (test code = WBCUCL) 0-3 WBC/HPF 0-3 UA BACTERIA (test code = BACU) NONE SEEN /HPF NONE SEEN UA SQUAMOUS CELLS (test code = SQU) NONE SEEN /HPF NONE SEEN UA MUCUS (test code = MUCU) TRACE /LPF NONE SEEN Indication for culture: Dysuria/FrequencySpecimen Description: CLEAN CATCH- CTA ABD PEL W [id number] 16:26:00 [facility] 1940 Sex: MName: ALLYSSA MATIAS [facility] : 1940 Age/S: 80 / M [address] [place] [address] Blvd Unit #: [id number] Loc: [place] [address] Phys: William Bernstein MD Acct: [id number] Dis Date: Status: REG ER PHONE #: [phone] Exam Date: 10/05/2020 1544 FAX #: [phone] Reason: TAA/AAA - abd. painsEXAMS: CPT CODE: [id number] CTA ABD PEL W CONT 97275 PROCEDURE: CTA CHEST ABDOMEN AND PELVIS 10/05/2020 INDICATION: Upper abdominal pain for one day. History of AAA. COMPARISON: Chest CT angiogram 09/27/2020. TECHNIQUE: CTA of the thoracoabdominal aorta and pelvis was performed with 100 ml Isovue 300intravenous contrast. Helical imaging performed apices to the symphysis. Multiplanar and 3-D MIP ang iographic reconstructions are reviewed. Precontrast images of the chest obtained as part of a dissection protocol. 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 [...] in PAGE 1 Signed Report (CONTINUED) Name: FLORENCIOALLYSSA [facility] : 1940 Age/S: 80 / M [address] [place] [address] Unit #: [id number] Loc: [place] [address] Phys: William Bernstein MD Acct: [id number] Dis Date: Status: REG ER PHONE #: Exam Date: 10/05/2020 1544 FAX #: [phone] Reason: TAA/AAA - abd. pains EXAMS: CPTCODE: [id number] CTA ABD PEL W CONT 08460 (Continued) appearance to the recent CT angiograms [...] artery: = 1.2 cm Patent celiac, mesenteric andrenal arterial circulation. RINA arises from the thrombosed [...] fluid. No bladder filling defects or diverticula. Prostatichypertrophy. MUSCULOSKELETAL: Severe lumbosacral spondylosis without destructive bone lesions. IMPRESSION: 1. Grossly stable aortic root/ascending aortic aneurysm accounting for measurement error. 2.Grossly stable fusiform infrarenal abdominal aortic aneurysm without rupture. 3. 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 4. Patent celiac, mesenteric and renal arterial circulation. PAGE 2 Signed Report (CONTINUED) Name: ALLYSSA MATIAS [facility] [place] : 1940 Age/S: 80 / M [address] [place] [address] Unit #: [id number] Loc: [place] [address] Phys: William Bernstein MD Acct: [id number] Dis Date: Status: REG ER PHONE #: Exam Date: 10/05/2020 1544 FAX #: [phone] Reason: TAA/AAA - abd. pains EXAMS: CPT CODE: [id number] CTA ABD PEL W CONT 56485 (Continued) 5. 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 6. Cardiomegaly with severe coronary atherosclerosis. 7. No abnormal solid organ enhancement. 8. Left simple renal cyst. SL: [id number] at 1626 Reported and signed by: Dain Medeiros M.D. CC: William Bernstein MD; Yimi Dykes Technologist:RT Tiarra(R) CTDI: DLP: Trnscb Date/Time: 10/05/2020 (162) [email or web address] Orig Print D/T: S: 10/05/2020 (4766) PAGE 3 Signed Report- CT ANGIO [id number] 16:26:00 [facility] : 1940 Sex: MName: ALLYSSA MATIAS [facility] : 1940 Age/S: 80 / M [address] [place], [place] [address]vd Unit #: [id number] Loc: [place] [address] Phys: William Bernstein MD Acct: [id number] Dis Date: Status: REG [place]ENO #: [phone] Exam Date: 10/05/2020 1544 FAX #: [phone] Reason: TAA/AAA - abd. pains EXAMS: CPT CODE: [id number] CT ANGIO CHEST 06313 PROCEDURE: CTA CHEST ABDOMEN AND PELVIS 10/05/2020 [...] adenopathy. MUSCULOSKELETAL: Severe thoracic spondylosis without destructive bonelesions. ABDOMEN: AORTA: Tortuous, severely atherosclerotic aorta with partially thrombosed fusiform infrarenal abdominal aortic aneurysm, similar in PAGE 1 Signed Report (CONTINUED) Name: ALLYSSA MATIAS [facility] : 1940 Age/S: 80 / M [address] [place] [address] Unit #: [id number] Loc:[place] [address] Phys: William Bernstein MD Acct: [id number] Dis Date: Status: REG ER PHONE #: [phone] Exam Date: 10/05/2020 1544 FAX #: [phone] Reason: TAA/AAA - abd. pains EXAMS: CPT CODE: [id number] CT ANGIO CHEST 61126 (Continued) appearance to the recent CT angiograms and with estimateddiameters as described, Maximum aneurysm cross-sectional diameter = [...] thrombosed aneurysm lumen with partial retrograde filling fromleft colic branches. SOLID ORGANS: No abnormal enhancement is seen in the liver, gallbladder, spleen, pancreas, adrenal glands or kidneys. Posterior renal cortex. No enhancing lesions, calculi or hydr onephrosis. BOWEL: Limited bowel assessment without oral contrast. [...] 2 Signed Report (CONTINUED) Name: ALLYSSA MATIAS [facility] Tonia Paul : 1940 Age/S: 80 / M [address] [place] [address] Unit #: [id number] Loc: [place] [address] Phys: William Bernstein MD Acct: [id number] Dis Date: Status: REG ER PHONE #: [phone] Exam Date: 10/05/2020 1544 FAX #: [phone] Reason: TAA/AAA - abd. pains EXAMS: CPT CODE: [id number] CT ANGIO CHEST 83242 (Continued) 5. 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 6. Cardiomegaly with severe coronary atherosclerosis. 7. No abnormal solid organ enhancement. 8. Left simple renal cyst. SL: [id number] at 1626 Reported andsigned by: Dain Hernandez M.D. CC: William Bernstein MD; Yimi Dykes Technologist:RT Tiarra(R) CTDI: DLP: Trnscb Date/Time: 10/05/2020 (1626) [email or web address] Orig Print D/T: S: 10/05/2020 (4930) PAGE 3 Signed ReportLIPOPROTEIN [id number] 15:26:00* Test Item Value Reference Range Interpretation Comme nts LIPOPROTEIN LDL (test code = LDL) 113.1 mg/dL 0-100 H <100 [id number] 0-129 NEAR OPTIMAL/ABOVE [id number] HIGH>HQ=025 VERY HIGH*Guidelines provided by the National Cholesterol EducationProgram Adult Treatment Panel III COMPREHENSIVE METABOLIC [id number] 15:05:00* Test Item Value Reference Range Interpretation Comme nts SODIUM (test code = NA) mEq/L 134-147 POTASSIUM (test code = K) mEq/L 3.4-5.0 CHLORIDE (test code = CL) mEq/L 100-108 CARBON DIOXIDE (test code = CO2) mEq/l 21-33 ANION GAP (test code = GAP) 0-20 GLUCOSE (test code = GLU) mg/dL 70-110 BLOOD UREA NITROGEN (test code = BUN) mg/dL 7-18 GLOMERULAR FILTRATION RATE ( test code = GFR) 70-80 CREATININE (test code = CREAT) mg/dL 0.6-1.3 TOTAL PROTEIN (test code = PROT) g/dL 6.4-8.2 ALBUMIN (test code = ALB) g/dL 3.4-5.0 CALCIUM (test code = CA) mg/dL 8.0-10.5 BILIRUBIN TOTAL (test code = BILT) mg/dL 0.0-1.0 SGOT/AST (test code = AST) IUnit/L 15-37 SGPT/ALT (test code = ALT) IUnit/L 30-65 ALKALINE PHOSPHATASE TOTAL ( test code = ALKP) IUnit/L 20-125 [id number] 15:05:00* Test Item Value Reference Range Interpretation Comme nts LIPASE (test code = LIP) U/L 13-57 [id number] 15:05:00* Test Item Value Reference Range Interpretation Comme nts TROPONIN-I (test code = TROPI) 0.135 ng/mL 0.000-0.045 H Negative: <= 0.0 45 Positive: >= 0.046 Correlation with serial results, other cardiac markers andclinical findings is necessary to determine the clinicalsignificance of this result. Results using different methodologies should not be comparedto one another as quantitative results may vary by method. COMPREHENSIVE METABOLIC [id number] 15:05:00* Test Item Value Reference Range Interpretation Comme nts SODIUM (test code = NA) 140 mEq/L 134-147 N POTASSIUM (test code = K) 3.4 mEq/L 3.4-5.0 N CHLORIDE (test code = CL) 106 mEq/L 100-108 N CARBON DIOXIDE (test code = CO2) 28 mEq/l 21-33 N ANION GAP (test code = GAP) 9 0-20 N GLUCOSE (test code = GLU) 97 mg/dL 70-110 N BLOOD UREA NITROGEN (test code = BUN) 18 mg/dL 7-18 N GLOMERULAR FILTRATION RATE (test code = GFR) 64.7 70-80 L Units of measure = ml/min/1.73 m2 CREATININE (test code = CREAT) 1.1 mg/dL 0.6-1.3 N TOTAL PROTEIN (test code = PROT) 7.1 g/dL 6.4-8.2 N ALBUMIN (test code = ALB) 3.90 g/dL 3.4-5.0 N CALCIUM (test code = CA) 9.6 mg/dL 8.0-10.5 N BILIRUBIN TOTAL (test code = BILT) 0.80 mg/dL 0.0-1.0 N SGOT/AST (test code = AST) 28 IUnit/L 15-37 N SGPT/ALT (test code = ALT) 19 IUnit/L 30-65 L ALKALINE PHOSPHATASE TOTAL (test code = ALKP) 75 IUnit/L 20-125 N [id number] 15:05:00* Test Item Value Reference Range Interpretation Comme nts LIPASE (test code = LIP) 42 U/L 13-57 N [id number] 15:05:00* Test Item Value Reference Range Interpretation Comme nts TROPONIN-I (test code = TROPI) 0.135 ng/mL 0.000-0.045 H Negative: <= 0.0 45 Positive: >= 0.046 Correlation with serial results, other cardiac markers andclinical findings is necessary to determine the clinicalsignificance of this result. Results using different methodologies should not be comparedto one another as quantitative results may vary by method. CBC W/AUTO [id number] 14:55:00* Test Item Value Reference Range Interpretation Comme nts WHITE BLOOD CELL (test code = WBC) 6.4 x10 3/uL 4.5-11.0 N RED BLOOD CELL (test code = RBC) 4.76 x10 6/uL 4.00-5.60 N HEMOGLOBIN (test code = HGB) 15.5 g/dL 12.5-16.9 N HEMATOCRIT (test code = HCT) 46.6 % 37.5-50.7 N MEAN CELL VOLUME (test code = MCV) 97.9 fL 81.0-99.0 N MEAN CELL HGB (test code = MCH) 32.6 pg 27.0-33.0 N MEAN CELL HGB CONCETRATION (test code = MCHC) 33.3 g/dL 33.0-37.0 N RED CELL DISTRIBUTION WIDTH CV (test code = RDW) 14.2 % 11.5-14.5 N RED CELL DISTRIBUTION WIDTH SD (test code = RDW-SD) 51.5 fL 37.0-54.0 N PLATELET COUNT (test code = PLT) 182 x10 3/uL 150-400 N MEAN PLATELET VOLUME (test c ode = MPV) 11.0 fL 7.0-9.0 H NEUTROPHIL % (test code = NT%) 63.6 % 56.0-77.0 N IMMATURE GRANULOCYTE % (test code = IG%) 0.5 % 0.0-2.0 N LYMPHOCYTE % (test code = LY%) 23.9 % 14.0-32.0 N MONOCYTE % (test code = MO%) 9.8 % 4.8-9.0 H EOSINOPHIL % (test code = EO%) 1.6 % 0.3-3.7 N BASOPHIL % (test code = BA%) 0.6 % 0.0-2.0 N NUCLEATED RBC % (test code = NRBC%) 0.0 % 0-0 N NEUTROPHIL # (test code = NT#) 4.07 x10 3/uL 2.0-7.6 N IMMATURE GRANULOCYTE # (test code = IG#) 0.03 x10 3/uL 0.00-0.03 N LYMPHOCYTE # (test code = LY#) 1.53 x10 3/uL 1.0-3.8 N MONOCYTE # (test code = MO#) 0.63 x10 3/uL 0.1-0.8 N EOSINOPHIL # (test code = EO#) 0.10 x10 3/uL 0.0-0.2 N BASOPHIL # (test code = BA#) 0.04 x10 3/uL 0.0-0.2 N NUCLEATED RBC # (test code = NRBC#) 0.00 x10 3/uL 0.0-0.1 N MANUAL DIFF REQUIRED (test c ode = MDIFF) NO CREATININE W ESTIMATED [id number] 13:29:00* Test Item Value Reference Range Interpretation Comme [facility] BEDSIDE CREATININE (test cod e = CREATBED) MG/DL 0.6-1.3 N GLOMERULAR FILTRATION RATE P OC (test code = GFRBED) 99 ML/MIN ENTER BEDSIDE CREATININE RESULT: .83Serial Number: [id number] Name of User Performing Test: TCHCREATININE W ESTIMATED [id number] 13:29:00* Test Item Value Reference Range Interpretation Comme [facility] BEDSIDE CREATININE (test cod e = CREATBED) 0.8 MG/DL 0.6-1.3 N GLOMERULAR FILTRATION RATE P OC (test code = GFRBED) 99 ML/MIN ENTER BEDSIDE CREATININE RESULT: .83Serial Number: [id number] Name of User Performing Test: TCH- CTA ABD PEL W [id number] 11:18:00 [facility] : 1940 Sex: MName: ALLYSSA MATIAS [facility] : 1940 Age/S: 80 / M [address] [place] [address] Bl Unit #: [id number] Loc: [place] [address] Phys: Stevo Pereyra MD Acct: [id number] Dis Date: Status: REG CLI PHONE #: [phone] Exam Date: 09/27/2020 0925 FAX #: [phone] Reason: 171.4, ABDOMINAL AORTIC ANEURYSM , WITHOUT RUPT EXAMS: CPT CODE: [id number] CTA ABD PEL W CONT 17519 Clinical Lu cation: 171.4, ABDOMINAL AORTIC ANEURYSM, WITHOUT RUPTURE. , DATE: 09/27/2020 9:08 AM : 1940; Age: 80 years y/o Male Comparison: None TECHNIQUE: Sequential [...] optimization techniques which include one or more ofthe following: - Automated exposure control -Adjustment of the mA and/or kV according to patient size -Use of iterative reconstruction technique FINDINGS: ARTERIAL EVALUATION: Atherosclerotic changesare seen involving the aorta. Aneurysmal ascending thoracic aorta measuring 4.6 cm. Moderate coronary arteries calcification. Heart is borderline in size. No pericardial effusion. Ectatic right and left main pulmonary arteries. No central pulmonary emboli. Mild atherosclerotic changes at the originof the celiac artery. SMA is patent. Mild atherosclerosis at the origin of bilateral renal arteries. Bilobed fusiform infrarenal abdominal aortic aneurysm is seen with upper portion measuring 2.8 x 3.1 cm and inferior portion measuring 6.9 x 6.9 cm. Subcentimeter aneurysm neck is seen. Moderate anterior mural thrombus involving the aneurysm. Aneurysmal bilateral common iliac arteries measuring upto 1.8 cm. Irregularities with small questionable dissection flap involving bilateral common iliac arteries. Patent bilateral external iliac arteries and common femoral arteries with mild atherosclerotic changes. Lymph Nodes: There is no mediastinal or hilar lymphadenopathy. No axillary lymphadenopathy. PAGE 1 Signed Report (CONTINUED) Name: ALLYSSA MATIAS [facility] : 1940 Age/S:80 / M [address] [place] [address] Blvd Unit #: [id number] Loc: [place] [address] Phys: Stevo PereyraNY Acct: [id number] Dis Date: Status: REG CLI PHONE #: [phone] Exam Date: 09/27/2020 09 FAX #: [phone] Reason: 171.4, ABDOMINAL AORTIC ANEURYSM , WITHOUT RUPT EXAMS: CPT CODE: [id number] CTA ABD PEL W CONT 79393 (Continued) Lungs: Mild emphysema. Patchy areas of [...] iliac arteries measuring up to 1.8 cm. Irregularitieswith small questionable dissection flap involving bilateral common [...] CODING PURPOSES ONLY RESULT CODE: NOD SL: [id number] PAGE 2 Signed Report (CONTINUED) Name: ALLYSSA MATIAS [facility] : 1940 Age/S: 80 / M [address] [place] [address] Bl Unit #: [id number] Loc: [place] [address] Phys: Stevo Pereyra MD Acct: [id number] Dis Date: Status: REG CLI PHONE #: [phone] Exam Date: 09/27/2020924 FAX #: [phone] Reason: 171.4, ABDOMINAL AORTIC ANEURYSM , WITHOUT RUPT EXAMS: CPTCODE: [id number] CTA ABD PEL W CONT 92680 (Continued) at 1118 Reported and signed by: Meghan Danielle D.O. CC: Stevo Pereyra MD; Yimi Dykes Technologist:RT Evan(R) CTDI: DLP: Trnscb Date/Time: 09/27/2020 (1118) AilynMP37 Orig Print D/T: S: 09/27/2020 (1121) PAGE 3 Signed Report- CT ANGIO [id number] 11:18:00 [facility] TONIA KISSIMMEEName: ALLYSSA MATIAS : 1940 Sex: MName: ALLYSSA MATIAS [facility] [place] : 1940 Age/S: 80 / M [address] [place] [address] Blvd Unit #: [id number] Loc: [place] [address] Phys: Stevo Pereyra MD Acct: [id number] Dis Date: Status: REG CLI PHONE #: [phone] Exam Date: 09/27/2020 0925 FAX #: [phone] Reason: 171.4, ABDOMINAL AORTIC ANEURYSM, WITHOUT RUPTU EXAMS: CPT CODE: [id number] CT ANGIO CHEST 63803 Clinical Indication: 171.4, ABDOMINAL AORTIC ANEURYSM, WITHOUT RUPTURE. , DATE: 09/27/2020 9:08 AM : 1940; Age: 80 years y/o Male Comparison: None TECHNIQUE: Sequential [...] techniques which include one or more of thefollowing: - Automated exposure control -Adjustment of the [...] 1 Signed Report (CONTINUED) Name: ALLYSSA MATIAS [facility] : 1940 Age/S: 80 / M [address] [place] [address] Bl Unit #: [id number] Loc: [place] [address] Phys: Stevo Pereyra MD Acct: [id number] Dis Date: Status: REG CLI PHONE #: [phone] Exam Date: 09/27/2020924 FAX #:[phone] Reason: 171.4, ABDOMINAL AORTIC ANEURYSM, WITHOUT RUPTU EXAMS: CPT CODE: [id number] CTANGIO CHEST 60369 (Continued) Lungs: Mild emphysema. Patchy areas of air trapping bilaterally. No consolidation. No pleural effusion. Mild bronchiectasis bilaterally. The right lower lobe 3 mm noncalcified nodule on image 61 of series 4. Few small scattered granulomas. Liver, gallbladder, adrenal glands, kidneys, spleen and pancreas: Liver, gallbladder, adrenal glands, spleen, pancreas and rightkidney are grossly unremarkable. Small simple cyst in [...] measuring 6.9 x 6.9 cm. Subcentimeter aneurysm neckis seen. 4. Aneurysmal bilateral common iliac arteries [...] CODING PURPOSES ONLY RESULT CODE: NOD SL: [id number] PAGE 2 Signed Report (CONTINUED) Name: ALLYSSA MATIAS [facility] : 1940 Age/S: 80 / M [address] [place] [address] Bl Unit #: [id number] Loc: [place] [address] Phys: Stevo Pereyra MD Acct: [id number] Dis Date: Status: REG CLI PHONE #: [phone] Exam Date: 09/27/2020924 FAX #: [phone] Reason: 171.4, ABDOMINAL AORTIC ANEURYSM, WITHOUT RUPTU EXAMS: CPT CODE:[id number] CT ANGIO CHEST 41849 (Continued) Electronically Signed by Neftaly Danielle on09/27/2020 at 1118 Reported and signed by: Meghan Danielle D.O. CC: Stevo Pereyra MD; Yimi Dykes Technologist:RT Evan(R) CTDI: DLP: Trnscb Date/Time: 09/27/2020 (1118) t.MP37 Orig Print D/T: S: 09/27/2020 (1121) PAGE 3 Signed Report- MRI L-SPINE W/O [id number] 10:18:00 [facility] : 1940 Sex: MFAX: Yimi Ga MD [phone] [place]: St: DEP Name: ALLYSSA MATIAS [facility] [place] : 1940 Age/S: 80/M[address] [facility] [address] Unit #: [id number] Loc: [place] [address] Phys: Yimi Dykes MD Acct: [id number] Dis Date: Status: DEP CLI PHONE #: [phone] Exam Date: 08/30/2020 1601 FAX #: [phone] Reason: LOWER BACK PAIN RADIATING DOWN RIGHT LEG EXAMS: CPT CODE: [id number] MRI L-SPINE W/O CONT 14650 Study: - MRI L-SPINE W/O CONT 08/30/2020 3:15 PM Patient Name: ALLYSSA MATIAS MR: [id number] : 1940; Age: 80 years y/o Male Ordering Physician: Yimi Dykes MD Clinical Indication: LOWER BACK PAIN RADIATING DOWN RIGHT LEG Comparison: None TECHNIQUE: Multiplanar T1, T2, and STIRweighted noncontrast MRI of the lumbar spine was performed on the 1.5 Rosario magnet. FINDINGS: ALIGNMENT AND GENERAL ASSESSMENT: Five lumbar type vertebral bodies are assumed for purpose of this dictation with conus medullaris termination at L1-L2. Mild to moderately degenerated discs throughout thelumbar spine. No spinal cord signal normality. Abdominal aortic aneurysm measuring up to 7.3 cm, partially imaged. Grade 1 retrolisthesis of L2 on L3. STIR hyperintensity in the inferior L1 endplate,and in the superior L3 endplate related to [...] stenosis bilaterally L4-L5: Right asymmetric disc bulge withright subarticular disc extrusion with superior displacement contacting the right descending L5 nerve root (series 7 image 24). Severe spinal canal stenosis with clumping of the cauda equina nerve roots and moderate right and mild left foraminal stenosis PAGE 1 Signed Report (CONTINUED) FAX: Yimi Ga MD [phone] [place]: St: DEP Name: ALLYSSA MATIAS [facility] : 1940 Age/S: 80/M [address] [place] [address] Unit #: [id number] Loc: [place] [address] Phys: Yimi Dykes MD Acct: [id number] Dis Date: Status: DEP CLI PHONE #: [phone] Exam Date: 08/30/2020 1601 FAX #: [phone] Reason: LOWER BACK PAIN RADIATING DOWN RIGHT LEG EXAMS: CPT CODE: [id number] MRI L-SPINE W/O CONT 55892(Continued) L5-S1: Central disc protrusion with annular fissure. IMPRESSION: 1. Severe degenerative spinal canal stenosis at L3-L4 and L4-L5 with clumping of the cauda equina nerve roots. 2. Moderate to severe degenerative spinal canal stenosis with clumping of cauda equina nerve roots at L2-L3. 3. Right subarticular disc extrusion at L4-L5 contacting the descending right L5 nerve root. 4. Severe degenerative neural foraminal stenosis at the bilateral L2-L3 level. 4. Grade 1 anterolisthesis ofL4-L5. 5. Degenerative edema in the inferior L1 and superior L3 endplates. 6. Abdominal aortic aneurysm measuring up to 7.5 cm in diameter, partially imaged. Consider CTA chest and pelvis for furtherevaluation. Findings discussed with Dr. Sharma at 10:17 AM 08/31/2020 by telephone. SL: [id number] at 1018 Reported and signed by: Sonal Tubbs CC: Yimi Dykes Technologist: RT Juliocesar(Jakob)(MR) Trnscrd Date/Time/By: 08/31/2020 (6467) : By: AilynAP24/AilynOL7Kwrb Print D/T: S: 08/31/2020 (3369) PAGE 2 Signed Report Notes Date/Time Note Provider Source 2020-10-10 08:47:00 [id number] LvMHedFw9wWvlv3OC/80y51fIAgko dwG6VcNP8gWnSxDY+LrYW0W1SxT7ZlyjCX8262-21-12E78:4 7:[id number] [place] [address] PATIENT NAME: ALLYSSA MATIAS ADMIT DATE: 10/05/20ACCOUNT NO: [id number] ROOM NO: 220 AGE: 80 REPORT TYPE: eECHOCARDIOGRAM REPORT SEX: M ADMITTING PHYSICIAN:Adis Man MD ATTENDING PHYSICIAN:Adis Man MD Exam Date: 10/06/2020 17:48:00 Exam Type: Transthoracic Echocardiogram Indication:A-FIB,PRE-OPBP: 146/84HR: 84 Measurements Name Value Normal Range IVSd [...] 81.3 ml - PATIENT NAME: ALLYSSA MATIAS CO LVOT 9.15 l/min - MARIN (continuity [...] peak gradient 4.02 mmHg - Findings Left Ventricle:The left ventricular chamber size is normal. Mild concentric leftventricular hypertrophy is observed. There is slightly decreased leftventricular systolic function. The estimated ejection fraction is 45%.Normal left ventricular diastolic filling is observed. Left Atrium:The left atrium is moderately dilated. Right Ventricle:The right ventricular cavity size is normal. The right ventricularglobal systolic function is normal. Right Atrium:The right atrial cavity size is normal. Aortic Valve:The aortic valve leaflets are mildly thickened. There is a trace ofaortic insufficiency. Mitral Valve:There is mild mitral valve prolapse. There is mild mitral regurgitationobserved. Tricuspid Valve:The tricuspid valve leaflets are morphologically normal. There is mildtricuspid regurgitation. There is evidence of mild pulmonaryhypertension. The pulmonary artery pressure is estimated at 37.1 mmHg. Pulmonic Valve:The pulmonic valve appears normal. There is mild pulmonic regurgitationpresent. Pericardium:There is no pericardial effusion. PATIENT NAME: ALLYSSA MATIAS Conclusions1. Mildly decreased left ventricular systolic function with globalhypokinesis2. Mild mitral valve regurgitation.3. Mild tricuspid valve regurgitation.4. Evidence of mild pulmonary artery hypertension. at 0852 PATIENT NAME: ALLYSSA MATIAS .[id number] AVAvailable for patient andeZMZVBRQEJMQJDZ7304-58-35O15:53:01 [facility] 2020-10-07 13:36:00 [id number] iBccKFSvwaZteGGriy9ew0eEVL2mO xE+yC9S2d5+N84ZkfihX9CiIS6chjLC7Fl7936-94-58R48:3 6:00 [facility] ProgREPORT#:[id number] REPORT STATUS: SignedDATE:10/07/20 TIME: 1336 PATIENT: ALLYSSA MATIAS UNIT #: [id number]#: [id number] [address] [birth year] AGE: 80 SEX: M ATTEND: Adis Man MDADM AUTHOR: Dayna Brandt [employer] * ALL edits or amendments must be made on the electronic/computer document * GeneralPost-op: day 1Status post:1. Bilateral femoral artery cutdown.2. Endovascular repair of infrarenal abdominal aortic aneurysm.3. Repair of bilateral common femoral artery. SubjectiveChief Complaint:F/U AAA repair Review of SystemsConstitutional:Denies: fever, malaise. Respiratory:Denies: hemoptysis, SOB. GI:Denies: abdominal pain, nausea, vomiting. Heme:Denies: bleeding. Neuro:Denies: dizziness, headache, lightheaded. Objective GeneralVS/I OVital Signs Date Temp Pulse Resp B/P B/P Mean Pulse Ox FiO2 10/06-10/07 97.6-98.2 77-120 12-39 116-172/47-90 66-114 90-96 Last Documented: Result Date Time [...] (lb): Weight (oz): Weight (kg): 115.909 Physical ExamGeneral appearance: alert, oriented, mental status normal, no respiratory distressWound/incision: Location:bilateral groins Site condition: dressing intactNeck: supple/no meningismusCardiovascular: normal heart sounds, regular rate rhythmRespiratory: aerating well, symmetric expansion, no distressAbdomen: soft, non-tender, no distentionExtremities: moves allNeuro/CLUTCH MECHANIC: alert, oriented X 3, normal speech, no motor deficitsPsychiatry: normal affect, normal mood Current MedicationsMedications:Active Meds + DC'd Last 24 HrsSodium Biphosphate/Sodium Phosphate 1 ENEMA ONCE ONE RECTAL (DC) Levothyroxine Sodium 200 MCG DAILY 0600 PO (DCD) Magnesium Sulfate 100 ML ONCE ONE IV (DC) Potassium Chloride 40 MEQ ONCE ONE PO (DC) Potassium Phosphate 20 MM ONCE ONE IV (DC) Sodium Chloride 250 MLBisacodyl 10 MG ONCE ONE RECTAL (DC) Acetaminophen 650 MG Q4H PRN PRN PO (DCD) Hydralazine HCl 10 MG Q6H PRN PRN IV (DCD) Hydrocodone Bitart/Acetaminophen 1 TAB Q4H PRN PRN PO (DCD) Hydrocodone Bitart/Acetaminophen 1 TAB Q4H PRN PRN PO (DCD) Amlodipine Besylate 10 MG DAILY PO (DCD) Ondansetron HCl 4 MG Q4H PRN PRN IV (DCD) Temazepam 15 MG BEDTIME PRN PRN PO (DCD) ResultsFindings/Data:Laboratory Tests 10/07 354 Chemistry Sodium (134 - [...] (Auto) (14.0 - 32.0 %) 10.2 L Surry % (Auto) (4.8 - 9.0 %) 9.1 H Eos % (Auto) (0.3 - 3.7 %) 0.0 L Baso % (Auto) (0.0 - 2.0 %) 0.1 Neut # (Auto) (2.0 - 7.6 x10 3/uL) 8.41 H Lymph # (Auto) (1.0 - 3.8 x10 3/uL) 1.07 [place]ry # (Auto) (0.1 - 0.8 x10 3/uL) 0.95 H Eos # (Auto) (0.0 - 0.2 x10 3/uL) 0.00 Baso # (Auto) (0.0 - 0.2 x10 3/uL) 0.01 Abs Immat Gran (auto) (0.00 - 0.03 x10 3/uL) 0.05 H Add Manual Diff NO Immature Gran % (0.0 - 2.0 %) 0.5 Nucleated RBC % (0 - 0 %) 0.0 Nucleated RBCs # (Man) (0.0 - 0.1 x10 3/uL) 0.00 Diagnosis, Assessment PlanHospital course to date: Mr. Matias is a 80-year-old male with past medical history significant for hypertension, bladder cancer (status post BCG treatment 2005), atrial fibrillation (cardioversion 2015), sleep apnea, lower extremity chronic venous insufficiency (status post BLE ablations), who went to see his PCP with complaints of back that radiated to R leg. Work up included an MRI of lumbar spin which revealed an incidental finding of abdominal aortic aneurysm. Subsequent CTA of chest showed a 6.9 cm infrarenal abdominal aortic aneurysm. Patient was also found to have a 4.6 ascending aortic aneurysm. Patient was referred to CV surgery for evaluation Patient continues to have back and abdominal pain. He was seen and examined by Dr. Pereyra. CTA has been reviewed. In view of 6.9 infrarenal abdominal aortic aneurysm and risk of rupture, endovascular repair of the aneurysm has been recommended. The procedure, risk involved, benefits, alternatives and potential complictions were discussed at length with the patient. He acknowledges understanding and would like to proceed with surgery. We have scheduled him for endovascular repair of abdominal aortic aneurysm tomorrow. As far as the 4.6 ascending aortic aneurysm, Dr. Pereyra recommended conservative management. 10/06 S/p1. Bilateral femoral artery cutdown.2. Endovascular repair of infrarenal abdominal aortic aneurysm.3. Repair of bilateral common femoral artery. 10/07 POD 1 No postoperative complicationsBil groin soft, nontender no hematomaDiscontinue A line and Green catheterNo bowel movement yet, will give suppositoryOkay to discharge home today. Follow up in clinic in 1-2 weeks Patient seen, examined and plan reviewed with Dr. Pereyra at 1649 RPT #:[id number] OF REPORTPRProgress Ixmr5438-01-51B77:36:00G.[id number] able for patient edjbSMJXHRHJHYJTML9996-11-18B46:49:53 [facility] 2020-10-07 13:36:00 [id number] INTkvz1oG4r/RSOCws1MdQ4K8+Z6d bU6BtnOKuZmXYaU0Rg3d3Iabj8BoCTcH+P7101-48-29V30:3 6:00 [facility] ProgREPORT#:[id number] REPORT STATUS: SignedDATE:10/07/20 TIME: 1336 PATIENT: ALLYSSA MATIAS UNIT #: [id number]#: [id number] [address] [birth year] AGE: 80 SEX: M ATTEND: Adis Man AUTHOR: Dayna Brandt NP * ALL edits or amendments must be made on the electronic/computer document * GeneralPost-op: day 1Status post:1. Bilateral femoral artery cutdown.2. Endovascular repair of infrarenal abdominal aortic aneurysm.3. Repair of bilateral common femoral artery. SubjectiveChief Complaint:F/U AAA repair Review of SystemsConstitutional:Denies: fever, malaise. Respiratory:Denies: hemoptysis, SOB. GI:Denies: abdominal pain, nausea, vomiting. Heme:Denies: bleeding. Neuro:Denies: dizziness, headache, lightheaded. Objective GeneralVS/I OVital Signs Date Temp Pulse Resp B/P B/P Mean Pulse Ox FiO2 10/06-10/07 97.6-98.2 77-120 12-39 116-172/47-90 66-114 90-96 Last Documented: Result Date Time Pulse Ox 95 10/07 0901 B/P 135/76 10/07 900 B/P Mean 98 10/07 0901 Pulse 81 10/07 0901 Resp 19 10/07 09 Temp 97.8 10/07 0400 O2 Delivery Room air 10/06 2000 O2 Flow Rate 4 10/06 1101 24 hour I O ending at 0700: 10/07 0700 10/06 1900 Intake Total 1100.00 833.00 Output Total 410 625 Balance 690.00 208.00 Intake, IV 350.00 113.00 Intake, Oral 750 720 Output, Urine 410 625 PATIENT WEIGHT: Weight (lb): Weight (oz): Weight (kg): 115.909 Physical ExamGeneral appearance: alert, oriented, mental status normal, no respiratory distressWound/incision: Location:bilateral groins Site condition: dressing intactNeck: supple/no meningismusCardiovascular: normal heart sounds, regular rate rhythmRespiratory: aerating well, symmetric expansion, no distressAbdomen: soft, non-tender, no distentionExtremities: moves allNeuro/CLUTCH MECHANIC: alert, oriented X 3, normal speech, no motor deficitsPsychiatry: normal affect, normal mood Current MedicationsMedications:Active Meds + DC'd Last 24 HrsSodium Biphosphate/Sodium Phosphate 1 ENEMA ONCE ONE RECTAL (DC) Levothyroxine Sodium 200 MCG DAILY 0600 PO (DCD) Magnesium Sulfate 100 ML ONCE ONE IV (DC) Potassium Chloride 40 MEQ ONCE ONE PO (DC) Potassium Phosphate 20 MM ONCE ONE IV (DC) Sodium Chloride 250 MLBisacodyl 10 MG ONCE ONE RECTAL (DC) Acetaminophen 650 MG Q4H PRN PRN PO (DCD) Hydralazine HCl 10 MG Q6H PRN PRN IV (DCD) Hydrocodone Bitart/Acetaminophen 1 TAB Q4H PRN PRN PO (DCD) Hydrocodone Bitart/Acetaminophen 1 TAB Q4H PRN PRN PO (DCD) Amlodipine Besylate 10 MG DAILY PO (DCD) Ondansetron HCl 4 MG Q4H PRN PRN IV (DCD) Temazepam 15 MG BEDTIME PRN PRN PO (DCD) ResultsFindings/Data:Laboratory Tests 10/07 354 Chemistry Sodium (134 - [...] (Auto) (14.0 - 32.0 %) 10.2 L [place] % (Auto) (4.8 - 9.0 %) 9.1 H Eos % (Auto) (0.3 - 3.7 %) 0.0 L Baso % (Auto) (0.0 - 2.0 %) 0.1 Neut # (Auto) (2.0 - 7.6 x10 3/uL) 8.41 H Lymph # (Auto) (1.0 - 3.8 x10 3/uL) 1.07 [place] # (Auto) (0.1 - 0.8 x10 3/uL) 0.95 H Eos # (Auto) (0.0 - 0.2 x10 3/uL) 0.00 Baso # (Auto) (0.0 - 0.2 x10 3/uL) 0.01 Abs Immat Gran (auto) (0.00 - 0.03 x10 3/uL) 0.05 H Add Manual Diff NO Immature Gran % (0.0 - 2.0 %) 0.5 Nucleated RBC % (0 - 0 %) 0.0 Nucleated RBCs # (Man) (0.0 - 0.1 x10 3/uL) 0.00 Diagnosis, Assessment PlanHospital course to date: Mr. Matias is a 80-year-old male with past medical history significant for hypertension, bladder cancer (status post BCG treatment 2005), atrial fibrillation (cardioversion 2015), sleep apnea, lower extremity chronic venous insufficiency (status post BLE ablations), who went to see his PCP with complaints of back that radiated to R leg. Work up included an MRI of lumbar spin which revealed an incidental finding of abdominal aortic aneurysm. Subsequent CTA of chest showed a 6.9 cm infrarenal abdominal aortic aneurysm. Patient was also found to have a 4.6 ascending aortic aneurysm. Patient was referred to CV surgery for evaluation Patient continues to have back and abdominal pain. He was seen and examined by Dr. Pereyra. CTA has been reviewed. In view of 6.9 infrarenal abdominal aortic aneurysm and risk of rupture, endovascular repair of the aneurysm has been recommended. The procedure, risk involved, benefits, alternatives and potential complictions were discussed at length with the patient. He acknowledges understanding and would like to proceed with surgery. We have scheduled him for endovascular repair of abdominal aortic aneurysm tomorrow. As far as the 4.6 ascending aortic aneurysm, Dr. Pereyra recommended conservative management. 10/06 S/p1. Bilateral femoral artery cutdown.2. Endovascular repair of infrarenal abdominal aortic aneurysm.3. Repair of bilateral common femoral artery. 10/07 POD 1 No postoperative complicationsBil groin soft, nontender no hematomaDiscontinue A line and Green catheterNo bowel movement yet, will give suppositoryOkay to discharge home today. Follow up in clinic in 1-2 weeks Patient seen, examined and plan reviewed with Dr. Pereyra at 1649 at 1444 RPT #:[id number] OF REPORTPRProgress Ykjp4711-75-81I31:36:00G.JZJD81230827-7374VJLlfes able for patient rgwkBJBNLGBUDIZXEN3394-40-87P17:45:33 [facility] 2020-10-06 16:33:00 CGhehrbfdxa15710271g sRLbWXZgCHTqXGagMCr9BD/nmHqyP 7tVLn1sWI2PFLVbYjsXZgYa5RIt1lRSyLy1676-43-85W95:3 3:[id number] [place] [address] PATIENT NAME: ALLYSSA MATIAS ADMIT DATE: 10/05/20ACCOUNT NO: [id number] [place] [facility] [place]GE[place] 80 REPORT TYPE: OPERATIVE REPORT SEX: M ADMITTING PHYSICIAN:Adis Man MD ATTENDING PHYSICIAN:Adis Man MD OPERATION DATE: 10/06/2020 PREOPERATIVE DIAGNOSIS: Infrarenal abdominal aortic aneurysm. POSTOPERATIVE DIAGNOSIS: Infrarenal abdominal aortic aneurysm. PROCEDURE: Endovascular repair of abdominal aortic aneurysm using Shawnee graft. SURGEON: Stevo Pereyra MD CO-SURGEON: Juanis Nguyen MD SYSTEMS DESIGN ENGINEER: ANESTHESIA: PROCEDURE IN DETAIL: Please refer to the operative note by Dr. Nato Pereyra. I assisted Dr. Pereyra during all the critical portions of the surgery includingbilateral arterial exposure, deployment of the graft. Dictated By: Juanis Nguyen MD WT: OP:RAVI/CHRISTA/NTSDD: 10/06/2020 16:33:33DT: 10/06/2020 18:53:15Conf#: [id number]/DID#: [id number] Authenticated by Juanis Nguyen MD, FACS On 10/10/2020 01:08:39 PM at 1308 PATIENT NAME: ALLYSSA MATIAS ayqdod4692-95-02J27:53:00G.[id number] lable for patient iquaVLMLXXAWJYNHUX5644-24-37Y67:09:07 [facility] 2020-10-06 13:49:00 GWvpyzggawj38375341o JGQS60buODMhAZYYcFOX/YpAO192Z eQ3eH3p9F9VE0RpwR9l0ovPmsHdDtp/Lgz1320-89-10J09:4 9:00 [facility] ([facility])Critical Care Consult NoteREPORT#:[id number] REPORT STATUS: SignedDATE:10/06/20 TIME: 1349 PATIENT: ALLYSSA MATIAS UNIT #: [id number]#: [id number] [address] [birth year] AGE: 80 SEX: M ATTEND: Adis Man [facility] AUTHOR: Regino Astorga MD * ALL edits or amendments must be made on the electronic/computer document * History of Present Illness HPIRequesting clinician: Dr. Pratt for consult:postop managementChief complaint:AAAHPI:80/M with h/o HTN, afib s/p CV, SA, LE venous insufficiency and bladder CA s/p BCG, who p/w abd pain and found to have infrarenal AAA of 6.9 cm. Pt went for EVAR today on 10/06/2020. He was admitted to CVICU postop for further management.He is slightly confused but complains of pain at surgery site. History - Adult longitudinalPast medical history:Reports: Atrial fib/flutter, Cancer (Bladder), Hypertension, Abdominal aortic aneurysm. Additional medical history:CBPPast surgical history:Reports: Bladder surgery. Additional surgical history:CardioversionAdditional family history:Mother: 72 years, natural causes Father: , heart disease, hypertension CKD, AAA RUPTURE Sister: Bladder cancer, hypertension, kidney disease, diabetesAlcohol use: Denies EtOH useDrug use: Denies recreational drugsSmoking status for patients 13 years old or older: Never SmokerOther social history: Local residentAllergies:Coded Allergies:No Known Drug Allergies (10/05/20) Occupation:retiredAmbulatory status: Independent Review of SystemsAll systems rev neg: except as marked (groins pain) Objective Physical ExamVS/I O:Last Documented: Result Date Time Pulse Ox 96 [...] Weight (lb): Weight (oz): Weight (kg): 115.909 Medications:Active Meds + DC'd Last 24 HrsLevothyroxine Sodium 200 MCG DAILY 0600 PO Acetaminophen 650 MG Q4H PRN PRN PO Fentanyl Citrate 25 MCG ONCE ONE IV (DC) Hydralazine HCl 10 MG Q6H PRN PRN IV Hydrocodone Bitart/Acetaminophen 1 TAB Q4H PRN PRN PO Hydrocodone Bitart/Acetaminophen 1 TAB Q4H PRN PRN PO Hydralazine HCl 10 MG Q6H PRN PRN IV (DC) Hydrocodone Bitart/Acetaminophen 1 TAB Q4H PRN PRN PO (DC) Hydrocodone Bitart/Acetaminophen 1 TAB Q4H PRN PRN PO (DC) Glycopyrrolate 0 .STK-MED ONE .ROUTE (DC) Neostigmine Methylsulfate 0 .STK-MED ONE .ROUTE (DC) Heparin Sodium 0 .STK-MED ONE .ROUTE (DC) Rocuronium Viola 0 .STK-MED ONE IV (DC) Phenylephrine HCl 0 .STK-MED ONE I-BENIGNO (DC) Fentanyl Citrate 100 MCG PACU Q10MIN PRN PRN IV (DC) Fentanyl Citrate 50 MCG PACU Q10MIN PRN PRN IV (DC) Hydralazine HCl 2 MG PACU Q10MIN PRN PRN IV (DC) Hydrocodone Bitart/Acetaminophen 1 TAB PACU ONCE PO (DC) Hydromorphone HCl 1 MG PACU Q10MIN PRN PRN IV (DC) Hydromorphone HCl 0.5 MG PACU Q5MIN PRN PRN IV (DC) Insulin Human Lispro 0 PACU ONCE PRN SUBQ (DC) Labetalol HCl 5 MG PACU Q10MIN PRN PRN IV (DC) Meperidine HCl 12.5 MG PACU ONCE PRN IV (DC) Morphine Sulfate 2 MG PACU Q10MIN PRN PRN IV (DC) Ondansetron HCl 4 MG PACU ONCE PRN IV (DC) Ropivacaine 150 MG ASDIR PRN LOCAL (DC) Tramadol HCl 50 MG PACU ONCE PO (DC) Heparin Sodium 0 .STK-MED ONE .ROUTE (DC) Phenylephrine HCl 250 ML .STK-MED ONE IV (DC) Dexamethasone Sodium Phosphate 0 .STK-MED ONE .ROUTE (DC) Lidocaine HCl 0 .STK-MED ONE .ROUTE (DC) Ondansetron HCl 0 .STK-MED ONE .ROUTE (DC) Rocuronium Viola 0 .STK-MED ONE IV (DC) Fentanyl Citrate [...] PREOP ONCE IV (DC) Sodium Chloride 100 MLAmlodipine Besylate 10 MG DAILY PO Labetalol HCl 10 MG Q6H PRN PRN IV (DC) Potassium Chloride/Dextrose/Sod Cl 1,000 ML .[id number] IV (DC) Acetaminophen 650 MG Q4H PRN PRN PO (DC) Hydrocodone Bitart/Acetaminophen 1 TAB Q6H PRN PRN PO (DC) Morphine Sulfate 4 MG Q4H PRN PRN IV (DC) Ondansetron HCl 4 MG Q4H PRN PRN IV Temazepam 15 MG BEDTIME PRN PRN PO Acetaminophen 650 MG Q4H PRN PRN PO (DC) Hydrocodone Bitart/Acetaminophen 1 TAB Q4H PRN PRN PO (DC) Morphine Sulfate 4 MG Q4H PRN PRN IV (DC) Ondansetron HCl 4 MG Q6H PRN PRN IV (DC) Iopamidol 100 ML .STK-MED ONE IV (DC) Sodium Chloride 0 ASDIR PRN IV (DC) ResultsFindings/Data:Laboratory Tests 10/06/20 1250:[Embedded Image Not Available] 10/06/20 0515:[Embedded Image Not Available] 10/05/20 1440:[Embedded Image Not Available]Laboratory Tests 10/06 10/06 10/06 10/05 1250 1250 0515 1440Chemistry Sodium (134 - 147 mEq/L) 137 139 [...] 3.47 TSH (0.42 - 5.47 IU/mL) 0.83 10/05 1440 Chemistry Sodium (134 - 147 [...] 10/06 10/06 10/06 10/06 1250 0908 0819 0515Coagulation INR (0.8 - 1.2) 1.4 H 1.3 H PT Patient/Control Mix (9.3 - 12.9 SECONDS) 14.9 H 13.9 H Activated Coag Time (74 [...] - 77.0 %) 85.3 H 54.8 L 63.6 Lymph % (Auto) (14.0 - 32.0 %) 11.3 L 30.1 23.9 [place] % (Auto) (4.8 - 9.0 %) 2.4 L 11.2 H 9.8 H Eos % (Auto) (0.3 - 3.7 %) 0.1 L 2.8 1.6 Baso % (Auto) (0.0 - 2.0 %) 0.3 0.7 0.6 Neut # (Auto) (2.0 - 7.6 x10 3/uL) 5.76 3.09 4.07 Lymph # (Auto) (1.0 - 3.8 x10 3/uL) 0.76 L 1.70 1.53 [place] # (Auto) (0.1 - 0.8 x10 3/uL) 0.16 0.63 0.63 Eos # (Auto) (0.0 - 0.2 x10 3/uL) 0.01 0.16 0.10 Baso # (Auto) (0.0 - 0.2 x10 3/uL) 0.02 0.04 0.04 Abs Immat Gran (auto) (0.00 - 0.03 x10 3/uL) 0.04 H 0.02 0.03 Add Manual Diff NO NO NO Immature Gran % (0.0 - 2.0 %) 0.6 0.4 0.5 Nucleated RBC % (0 - 0 %) 0.0 0.0 0.0 Nucleated RBCs # (Man) (0.0 - 0.1 x10 3/uL) 0.00 0.00 0.00 Laboratory Tests 10/05 163 Serology SARS-CoV-2 Ag (Rapid) (Negative) Negative Laboratory Tests 10/05 1700 Urines Urine Color (YEL/STRAW) STRAW Urine Appearance (CLEAR) CLEAR Urine pH (5.0 - 7.0) 7.0 Ur Specific [place] (1.005 - 1.030) 1.021 Urine Protein (NEGATIVE) [...] Squamous Epith Cells (NONE SEEN /HPF) NONE SEEN Urine Bacteria (NONE SEEN /HPF) NONE SEEN Urine Mucus (NONE SEEN /LPF) TRACE Radiology data:Recent Impressions:CAT SCAN - CTA ABD PEL W CONT 10/05 1544 Report Impression - Status: SIGNED Entered: 10/05/20201629 IMPRESSION:1. Grossly stable aortic root/ascending aortic aneurysm accounting formeasurement error.2. Grossly stable fusiform infrarenal abdominal aortic aneurysmwithout rupture.3. 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 Patent celiac, mesenteric and renal arterial circulation.5. 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 Cardiomegaly with severe coronary atherosclerosis.7. No abnormal solid organ enhancement.8. Left simple renal cyst. SL: DXDQQ5VXBS68Odxhsfgojl By: Elie Hernandez M.D.CAT SCAN - CT ANGIO CHEST 10/05 1544 Report Impression - Status: SIGNED Entered: 10/05/20201629 IMPRESSION:1. Grossly stable aortic root/ascending aortic aneurysm accounting formeasurement error.2. Grossly stable fusiform infrarenal abdominal aortic aneurysmwithout rupture.3. 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 Patent celiac, mesenteric and renal arterial circulation.5. 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 Cardiomegaly with severe coronary atherosclerosis.7. No abnormal solid organ enhancement.8. Left simple renal cyst. SL: SSMDE3SQWL38Dkvmpabsip By: AilynERR2 - Dain Hernandez M.D. Free Text Obj NotesFree Text Obj Notes:General appearance: confused, no acute distress, conversational, no respiratory distressHead/Eyes: atraumatic, normocephalicENT: moist mucosal membranesNeck: full range of motion, supple/no meningismusCardiovascular: normal capillary refill, normal heart sounds, regular rate and rhythmRespiratory: aerating well, symmetric expansion, no distressAbdomen: soft, non-tender, no distention, no guarding, diastasis rectiGenitourinary: green with urineExtremities: pedal pulses, moves all, normal capillary refill, normal range of motion, no clubbing Vascular pulse assessment:palpated: R posterior tibialis, L posterior tibialis, R dorsalis pedis, L dorsalis pedis. Musculoskeletal: normal inspection, no muscle spasmNeuro/CLUTCH MECHANIC: CNII-XII intact, no motor deficitsSkin: dry, intact and clean bilateral groins, LE skin discoloration with chronicvenous insufficiency changes Diagnosis, Assessment Plan Diagnosis, Assessment PlanProblem List/A P: 1. AAA (abdominal aortic aneurysm) without rupture 2. Abdominal pain Free Text A P:80/M with h/o HTN, afib s/p CV, SA, LE venous insufficiency and bladder CA s/p BCG, who p/w abd pain and found to have infrarenal AAA of 6.9 cm. Pt went for EVAR today on 10/06/2020. Neuro: pain control as needed, minimize narcsResp: sats well on NC, wean as toleratedCV: monitor hemodynamics, cont cardiac medsRenal: gentle hydration, monitor Cr/UOPGI: oral diet, BR, replete hypoMg/K/PhosID: no ID issues, given periop AbxHem: Hgb, groin and vascular checksEndo: BG checks/control, on synthroidMisc: OOB as tolerated, DVT ppx further care per primaryICC is available as needed Plan discussed with: patient, interdisc care team, patient care team, nurseCritical care time: Minutes: 45 at 2209 RPT #:[id number] OF REPORTQRGoximsxuqcdb1965-16-67L88:49:00G.PDOC2 [id number] for patient gkztZWICVHKNSHDAEP0539-35-04T24:09:32 [facility] 2020-10-06 13:48:00 PXsheyhrrmq43947782w phDwrH48QX7/Bnon+axr22NqrV58q 2aSvu0GDl3MMndqoGraU4C5EyOa/RSdjkJ7897-40-80V00:4 8:00 [facility] Proc - FullREPORT#:[id number] REPORT STATUS: SignedDATE:10/06/20 TIME: 1348 PATIENT: ALLYSSA MATIAS UNIT #: [id number]#: [id number] [address] [birth year] AGE: 80 SEX: M ATTEND: Adis Man AUTHOR: Regino Astorga MD * ALL edits or amendments must be made on the electronic/computer document * Bedside Procedure Note Bedside Procedure NoteStart date: 10/06/20art time: 1549Pre-procedure diagnosis:AAAPost-procedure diagnosis:sameProcedure performed: arterial line (left radial)Performed by:william mdAssistant(s): noneAnesthesia: local - lidocaineTechnique/Procedure:In a sterile fashion and under US guidance, left radial arterial line was placed, secured and dressed. Specimens removed/altered: noneImplant(s): noneComplications: noneEstimated blood loss in ml's: 7 ccFindings:two attempts at 2209 RPT #:[id number] OF REPORTPNProcedure gubh4534-48-84A96:48:00G.IMAU40671036-1279JRMylld able for patient cuxvKUQJXXPIANYAKN4033-37-38B31:09:22 [facility] 2020-10-06 10:45:00 WXhoqimwnlp79514727M tPzWJO6xNQh7tCOe/Y9w9uvD0uEZa mlCL7ikCJUCOIIKckfiW+Lx55FakqADJe32864-84-56Z96:4 5:00 [facility] CenterHospitalist Progress NoteREPORT#:[id number] REPORT STATUS: SignedDATE:10/06/20 TIME: 1045 PATIENT: ALLYSSA MATIAS UNIT #: [id number]#: [id number] [address] AGE: 80 SEX: M ATTEND: Adis Man AUTHOR: Adis Man MD * ALL edits or amendments must be made on the electronic/computer document * SubjectiveChief Complaint:STILL IN OR/RR FROM EVR OF AAA Objective GeneralVS/I O:Vital Signs: Date Time Temp Pulse Resp B/P B/P Pulse O2 O2 Flow FiO2 Mean Ox Delivery Rate 10/06 1026 [...] Weight (lb): Weight (oz): Weight (kg): 115.909 Medications:Active Meds + DC'd Last 24 HrsHydralazine HCl 10 MG Q6H PRN PRN IV Hydrocodone Bitart/Acetaminophen 1 TAB Q4H PRN PRN PO Hydrocodone Bitart/Acetaminophen 1 TAB Q4H PRN PRN PO (UNV) Glycopyrrolate 0 .STK-MED ONE .ROUTE (DC) Neostigmine Methylsulfate 0 .STK-MED ONE .ROUTE (DC) Heparin Sodium 0 .STK-MED ONE .ROUTE (DC) Rocuronium Viola 0 .STK-MED ONE IV (DC) Phenylephrine HCl [...] (DC) Dexamethasone Sodium Phosphate 0 .STK-MED ONE .ROUTE (DC) Lidocaine HCl 0 .STK-MED ONE .ROUTE (DC) Ondansetron HCl 0 .STK-MED ONE .ROUTE (DC) Rocuronium Viola 0 .STK-MED ONE IV (DC) Fentanyl Citrate [...] PREOP ONCE IV (CKD) Sodium Chloride 100 MLAmlodipine Besylate 10 MG DAILY PO Labetalol HCl 10 MG Q6H PRN PRN IV Potassium Chloride/Dextrose/Sod Cl 1,000 ML .[id number] IV Acetaminophen 650 MG Q4H PRN PRN PO Hydrocodone Bitart/Acetaminophen 1 TAB Q6H PRN PRN PO (DC) Morphine Sulfate 4 MG Q4H PRN PRN IV Ondansetron HCl 4 MG Q4H PRN PRN IV Temazepam 15 MG BEDTIME PRN PRN PO Acetaminophen 650 MG Q4H PRN PRN PO (DC) Hydrocodone Bitart/Acetaminophen 1 TAB Q4H PRN PRN PO (DC) Morphine Sulfate 4 MG Q4H PRN PRN IV (DC) Ondansetron HCl 4 MG Q6H PRN PRN IV (DC) Iopamidol 100 ML .STK-MED ONE IV (DC) Sodium Chloride 0 ASDIR PRN IV Physical ExamGeneral appearance: sedatedNeck: no JVDCardiovascular: irregularly irregular, normal heart soundsAbdomen: non-tender, normal bowel sounds, soft, no distentionExtremities: no edemaMusculoskeletal: muscle wasting, ON HIS LEFT HANDNeuro/CLUTCH MECHANIC: normal speech, no motor deficits ResultsFindings/Data:Laboratory Tests 10/06 10/05 10/05 0515 1440 1440 [...] INR (0.8 - 1.2) 1.3 H PTT ([place]) (25.0 - 39.5 Seconds) 37.2 PT Patient/Control Mix (9.3 - 12.9 SECONDS) 13.9 H Activated Coag Time (74 - [...] (Auto) (14.0 - 32.0 %) 30.1 23.9 [place] % (Auto) (4.8 - 9.0 %) 11.2 H 9.8 H Eos % (Auto) (0.3 - 3.7 %) 2.8 1.6 Baso % (Auto) (0.0 - 2.0 %) 0.7 0.6 Neut # (Auto) (2.0 - 7.6 x10 3/uL) 3.09 4.07 Lymph # (Auto) (1.0 - 3.8 x10 3/uL) 1.70 1.53 [place] # (Auto) (0.1 - 0.8 x10 3/uL) 0.63 0.63 Eos # (Auto) (0.0 - 0.2 x10 3/uL) 0.16 0.10 Baso # (Auto) (0.0 - 0.2 x10 3/uL) 0.04 0.04 Abs Immat Gran (auto) (0.00 - 0.03 x10 3/uL) 0.02 0.03 Add Manual Diff NO NO Immature Gran % (0.0 - 2.0 %) 0.4 0.5 Nucleated RBC % (0 - 0 %) 0.0 0.0 Nucleated RBCs # (Man) (0.0 - 0.1 x10 3/uL) 0.00 0.00 Laboratory Tests 10/05 1631 Serology SARS-CoV-2 Ag (Rapid) (Negative) Negative Laboratory Tests 10/05 1700 Urines Urine Color (YEL/STRAW) STRAW Urine Appearance (CLEAR) CLEAR Urine pH (5.0 - 7.0) 7.0 Ur Specific [place] (1.005 - 1.030) 1.021 Urine Protein (NEGATIVE) [...] Squamous Epith Cells (NONE SEEN /HPF) NONE SEEN Urine Bacteria (NONE SEEN /HPF) NONE SEEN Urine Mucus (NONE SEEN /LPF) TRACE Radiology data:Recent Impressions:CAT SCAN - CTA ABD PEL W CONT 10/05 1543 Report Impression - Status: SIGNED Entered: 10/05/2020 1630 IMPRESSION:1. Grossly stable aortic root/ascending aortic aneurysm accounting formeasurement error.2. Grossly stable fusiform infrarenal abdominal aortic aneurysmwithout rupture.3. 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 Patent celiac, mesenteric and renal arterial circulation.5. 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 Cardiomegaly with severe coronary atherosclerosis.7. No abnormal solid organ enhancement.8. Left simple renal cyst. SL: [id number] By: Elie Hernandez M.D.CAT SCAN - CT ANGIO CHEST 10/05 1543 Report Impression - Status: SIGNED Entered: 10/05/2020 1630 IMPRESSION:1. Grossly stable aortic root/ascending aortic aneurysm accounting formeasurement error.2. Grossly stable fusiform infrarenal abdominal aortic aneurysmwithout rupture.3. 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 Patent celiac, mesenteric and renal arterial circulation.5. 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 Cardiomegaly with severe coronary atherosclerosis.7. No abnormal solid organ enhancement.8. Left simple renal cyst. SL: FHYAU0SATZ06Efpgalkjle By: Elie Hernandez M.D. Diagnosis, Assessment Plan Free Text DxA P NotesFree text DxA P notes:6.9 CM AAA WITH OCCLUSION OF RINA, S/P EVR - TRT PLAN BY CTS, ASCENDING TAA IS ROXANA OBSERVED O/P HTN - NL NOW, COREG 12.5 BID, HOLD HOME MEDS UNTIL BETTER, TOLERATES DIET TROP 0.0135/DEMAND ISCHEMIA - H/O A.FIB, NO RECENT W/U, ASK CARD TO EVAL, AND POST OP F/U H/O HYPOTHYROIDISM - RESUME HOME SYNTHROID, NL TSH (0.83), LDL 113 DVT PX - SCD, ON HEPARIN GTT at 1050 [facility] #:[id number] OF REPORTPRProgress Eeir3521-27-37M59:45:00G.YDPZ54573707-1262YMXoout able for patient tuhsNFSTTYATQDFDHS3676-18-65Y79:50:55 [facility] 2020-10-06 09:56:00 XDmrerxfgke38078688+ 6lYoq76dtNk9NyTuDRvNK28uWpbgJ UDqE4jZuJnLlxvAAJmkixIHrRgR+YZ9Mus4896-31-03E43:5 6:[id number] [place] [address] PATIENT NAME: ALLYSSA MATIAS ADMIT DATE: 10/05/20ACCOUNT NO: [id number] [place] [facility] [place] AGE: 80 REPORT TYPE: OPERATIVE REPORT SEX: M ADMITTING PHYSICIAN:Adis Man MD ATTENDING PHYSICIAN:Adis Man MD OPERATION DATE: 10/06/2020 PREOPERATIVE DIAGNOSIS: A 6.9 cm infrarenal abdominal aortic aneurysm. POSTOPERATIVE DIAGNOSIS: A 6.9 cm infrarenal abdominal aortic aneurysm. OPERATIONS:1. Bilateral femoral artery cutdown.2. Endovascular repair of infrarenal abdominal aortic aneurysm.3. Repair of bilateral common femoral artery. SURGEON: Stevo Pereyra MD SYSTEMS DESIGN ENGINEER: Juanis Nguyen MD ANESTHESIOLOGIST: Dr. Funk. ANESTHESIA: General endotracheal anesthesia. ESTIMATED BLOOD LOSS: 50 mL. INDICATIONS: Mr. Matias is a 80-year-old gentleman with an incidental findingof 6.9 cm infrarenal abdominal aortic aneurysm. He was investigated and themorphology of the aneurysm was found suitable for endovascular repair. Afterdue preop counseling, he was brought to the operating room today forendovascular repair. FINDINGS:1. Right common femoral artery measured about 12 mm in size, significantcalcification on the posterior aspect of the artery.2. Left common femoral artery measured about 12 mm in size, significantcalcification on the posterior aspect of the artery.3. A 7 cm infrarenal abdominal aortic aneurysm.4. Completion angiogram did not show any evidence of endoleak. PROCEDURE IN DETAIL: Mr. Matias was identified in the preoperative holdingarea and brought to the operating room and placed supine on the operating table. After induction of general endotracheal anesthesia, Green catheter, radialarterial line, antibiotics were placed. The patient's anterior torso and bothlower extremities were prepped and draped in standard surgical fashion. Webegan by exploring the right common femoral artery via a 3-cm transverseincision centered on the midpoint of the right inguinal ligament. Subcutaneoustissue was divided with Bovie cautery. The right common femoral artery was PATIENT NAME: ALLYSSA MATIAS identified, dissected, and isolated. Next, two concentric pursestring sutureswere placed on the anterior wall of the right common femoral artery. Next,attention was shifted to the left common femoral artery which was explored via a3-cm transverse incision centered on the midpoint in the left inguinal ligament. Subcutaneous tissue was divided with Bovie cautery. The left common femoralartery was identified, dissected, and isolated. Two concentric pursestringsutures were then placed on the anterior wall of the left common femoral artery. Next, using modified Seldinger technique, an 18-Pakistani sheath was placed in theright common femoral artery and a 16-Pakistani sheath was placed in the left commonfemoral artery. [place]zed [place] 59964 U of heparin, to keep ACT more thn 250. A pigtail was passed into the descending thoracic aorta and angiogram was performed for roadmapping. Next, the Shawnee device 31 mm x 14.5 mm x 130 mm was then passed through the right common femoral artery into the infrarenal aorta. After confirming the position of the renal artery, the main body and the contralateral limb was deployed. Next, the contralateral limb was then cannulated using a multipurpose catheter and a Glidewire via the left common femoral artery. Angiogram was performed and the length of the device was measured to 23 mm x 12 cm. This was then brought onto the surgical field and passed through the left common femoral artery, and deployed under fluoroscopic control. After deploying the contralateral limb, it was noticed that we were about 1.5 cm short of the hypogastric artery and we were concerned that we may not have adequately excluded the aneurysm and hence a cuff measuring 23 mm x 10 cm was passed through the left common femoral artery, and deployed just proximal to the origin of the left hypogastric artery. Next, the ipsilateral limb was deployed. Angiogram was performed through this 18- Pakistani sheath to identify the location of the right hypogastric artery and 23 mm x 14 cm limb was brought on to the surgical field, passed through the right groin and deployed just proximal to the right hypogastric artery. Next, using a True balloon, all the creases in the device were ironed out. Next, a pigtail catheter was passed through the left common femoral artery and a completion angiogram was performed, which did not show any evidence of endoleak and confirmed the exclusion of the aneurysm. The sheaths were removed from the right and left common femoral artery and the arteries were repaired by tying the pursestring down. The patient had good PT and DP signals bilaterally. Hemostasis was confirmed and the incisions were closed in layers using #3 Vicryl for subcutaneous tissue, and 4-0 Vicryl for the skin. The patient was extubated in the operating room and moved to PACU in stable condition. Dictated By: Stevo Pereyra MD WT: OP:GBETTY/MIKE./NTSDD: 10/06/2020 09:56:58DT: 10/06/2020 12:54:38Conf#: [id number]/DID#: [id number] Authenticated and Edited by Nato Pereyra MD On 10/08/20 4:15:44 PM at 1618 PATIENT NAME: ALLYSSA MATIAS bahgpg9605-21-83I22:54:00G.[id number] lable for patient rxgfUPUDLVBXTMBCCC9294-30-70M31:18:19 [facility] 2020-10-06 09:47:00 [id number] 4rkwhSIIMzyl25HZi128q8jYKxZdK 4hg6pGk3nI3kmlTtI3K0ZOJ7/e4e82aLeu5398-46-89N76:4 7:00 [facility])Brief Op NoteREPORT#:[id number] REPORT STATUS: SignedDATE:10/06/20 TIME: 09 PATIENT: ALLYSSA MATIAS UNIT #: [id number]#: [id number] [facility]DOB: [birth year] AGE: 80 SEX: M ATTEND: Adis Man AUTHOR: Stevo Pereyra MD * ALL edits or amendments must be made on the electronic/computer document * Op/Inv Proc Note - BriefPre-procedure diagnosis:6.9 cc infra renal abdominal aortic aneurysmPost-procedure diagnosis: same as pre procedure dxProcedures performed:EVR of infra renal AAA (31x14,5x130)Primary Surgeon:Otist(s): Salomón Irahetadings:7cm AAAComplications: noneEstimated blood loss in ml's: 50 ccSpecimens removed/altered: none at 0949 RPT #:[id number] OF REPORTOPOperative ijwmbv4647-28-57B02:47:00G.DOGR98569558-5454YYCbe ilable for patient waojRBPLWYMUSVCLLJ7676-54-46S98:49:28 [facility] 2020-10-05 18:48:00 KBvjffvshre15903274J PIq3IrjHDErVyaJH3ASIdW+geHQwc breM8u/xZZGj7mJ6rJgJXxp1ErBhugnJ/E1091-87-35J12:4 8:00 [facility]Hospitalist History PhysicalREPORT#:[id number] REPORT STATUS: SignedDATE:10/05/20 TIME: 1847 PATIENT: ALLYSSA MATIAS UNIT #: [id number]#: [id number] ROOM/BED:: 42 AGE: 80 SEX: M ATTEND: William Bernstein AUTHOR: Adis Man MD * ALL edits or amendments must be made on the electronic/computer document * History of Present Illness HPIChief complaint:ABD PAINPCP:PCP: Yimi Dykes MD HPI:80 WM WITH MILD FORM OF ALS, HTN, HLP, HYPOTHYROIDISM, CHRONIC A.FIB, ON SAVAYSA, LBP. HE WAS SEEN BY DR. DYKES (HIS PCP) FOR LBP, AND HAD AN MRI WHICH LEAD TO INCIDENTAL FINDING OF AAA, THEN HAD CTA CHEST/ABD ON 09/27/20. HE WAS REFERRED TO DR. STEVENS WHO PLAN ON SURGERY SOON, BUT OVER THE PAST 2 DAYS, HE'S CONCERNED ABOUT THE POSSIBLITY OF RUPTURE BECAUSE HE HAS INTERMITENT EPIGASTRIC AND LUQ ABD FOR 2 DAYS, MILD RATED 5/10, AND NOT WORSENED WITH MOVEMENT OR MEALS. NL HE CAN WALK UP TO 1/4 MILE WITHOUT CP/SOB, JUST DUE TO MILD ALS HE CAN WALK FURTHER. HSI LAST STRESS WAS [address] SCHWARTZ[address]Informant/historian: patient, prior records, referring physician History Past Medical Surgical HxAdditional medical history:CBPAdditional surgical history:Cardioversion Family HistoryAdditional family history:Mother: 72 years, natural causesFather: , heart disease, hypertension CKD, AAA RUPTURESister: Bladder cancer, hypertension, kidney disease, diabetes Social HistoryAlcohol use: Denies EtOH useDrug use: Denies recreational drugsSmoking status for patients 13 years old or older: Never SmokerOther social history: Local resident Medication/Allergy-Vaccine HxMedications:Home Medications:EDOXABAN TOSYLATE (SAVAYSA) 60 MG PO DAILY HYDROCHLOROTHIAZIDE (HYDRODIURIL) 25 MG PO DAILY GABAPENTIN (NEURONTIN) 300 MG PO TID hydrALAZINE (APRESOLINE) 25 MG PO BID LEVOTHYROXINE (LEVOXYL) 200 MCG PO DAILY amLODIPine (NORVASC) 10 MG PO DAILY LOSARTAN (COZAAR) 100 MG PO DAILY Allergies:Coded Allergies:No Known Drug Allergies (10/05/20) Review of Systems Free Text ROS NotesFree Text ROS Notes:2 POINT ROS WERE NEGATIVE Physical ExamVS/I O:Vital Signs Date Temp Pulse Resp B/P B/P Mean Pulse Ox FiO2 10/05 97.5 50-71 16-17 143-146/84-90 104-107 95-96 Last Documented: Result Date Time Pulse Ox 95 01/20 1635 B/P 146/84 10/05 1635 B/P Mean 104 10/05 1635 O2 Delivery Room air 10/05 1635 Pulse 50 10/05 1635 Resp 16 10/05 1635 Temp 97.5 10/05 1400 Patient Weight and BMI Weight (kg): 115.909 BMI: 34.7 General appearance: chronically ill appearing, alert, awake, orientedNeck: no JVDCardiovascular: irregularly irregular, normal heart soundsRespiratory: aerating well, clear to auscultationAbdomen: non-tender, normal bowel sounds, soft, no distentionExtremities: no edemaMusculoskeletal: muscle wasting, ON HIS LEFT HANDNeuro/CLUTCH MECHANIC: alert, oriented X 3, normal speech, no motor deficits ResultsFindings/Data:Laboratory Tests: 10/05 10/05 10/05 1700 1631 1440 Chemistry LDL Cholesterol [place] (0 - 100 mg/dL) 113.1 H Serology SARS-CoV-2 Ag (Rapid) (Negative) Negative Urines Urine Color (YEL/STRAW) STRAW Urine Appearance (CLEAR) CLEAR Urine pH (5.0 - 7.0) 7.0 Ur Specific [place] (1.005 - 1.030) 1.021 Urine Protein (NEGATIVE) [...] Squamous Epith Cells (NONE SEEN /HPF) NONE SEEN Urine Bacteria (NONE SEEN /HPF) NONE SEEN [...] % (Auto) (14.0 - 32.0 %) 23.9 [place] % (Auto) (4.8 - 9.0 %) 9.8 H Eos % (Auto) (0.3 - 3.7 %) 1.6 Baso % (Auto) (0.0 - 2.0 %) 0.6 Neut # (Auto) (2.0 - 7.6 x10 3/uL) 4.07 Lymph # (Auto) (1.0 - 3.8 x10 3/uL) 1.53 [place] # (Auto) (0.1 - 0.8 x10 3/uL) 0.63 Eos # (Auto) (0.0 - 0.2 x10 3/uL) 0.10 Baso # (Auto) (0.0 - 0.2 x10 3/uL) 0.04 Abs Immat Gran (auto) (0.00 - 0.03 x10 3/uL) 0.03 Add Manual Diff NO Immature Gran % (0.0 - 2.0 %) 0.5 Nucleated RBC % (0 - 0 %) 0.0 Nucleated RBCs # (Man) (0.0 - 0.1 x10 3/uL) 0.00 Laboratory Tests 10/05/20 1440:[Embedded Image Not Available] Radiology data:Recent Impressions:CAT SCAN - CTA ABD PEL W CONT 10/05 1544 Report Impression - Status: SIGNED Entered: 10/05/2020 1630 IMPRESSION:1. Grossly stable aortic root/ascending aortic aneurysm accounting formeasurement error.2. Grossly stable fusiform infrarenal abdominal aortic aneurysmwithout rupture.3. 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 Patent celiac, mesenteric and renal arterial circulation.5. 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 Cardiomegaly with severe coronary atherosclerosis.7. No abnormal solid organ enhancement.8. Left simple renal cyst. SL: [id number] By: Elie Hernandez M.D.CAT SCAN - CT ANGIO CHEST 10/05 1544 Report Impression - Status: SIGNED Entered: 10/05/2020 1630 IMPRESSION:1. Grossly stable aortic root/ascending aortic aneurysm accounting formeasurement error.2. Grossly stable fusiform infrarenal abdominal aortic aneurysmwithout rupture.3. 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 Patent celiac, mesenteric and renal arterial circulation.5. 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 Cardiomegaly with severe coronary atherosclerosis.7. No abnormal solid organ enhancement.8. Left simple renal cyst. SL: [id number] By: Elie Hernandez M.D. Diagnosis, Assessment PlanFree Text A P:6.9 CM AAA WITH OCCLUSION OF RINA - SEEN BY CTS, PLAN ON OR SOON, SO KEEP NPO PAST MN HTN - HIGH, COREG 12.5 BID TROP 0.0135/DEMAND ISCHEMIA - H/O A.FIB, NO RECENT W/U, ASK CARD TO EVAL, AND PREOP CLEARANCE H/O HYPOTHYROIDISM - GET TSH/FT4/LIPID DVT PX - SCD FOR NOW at 1858 RPT #:[id number] OF REPORTHPHistory and physical ztwrsjhwsvn2553-78-22K67:48:00G.[id number] AVAvailable for patient dikuJVWOQMQYCNFXNY0794-22-53I19:58:36 [facility] 2020-10-05 17:47:00 [id number] CJMYmjW4G+Ba6n+OSV8QnIS0590oO SurnFqoNJqVf/HNpRDAs4Lg0RE3mKwK7Ui0920-20-96U98:4 7:00 [facility] ConsultREPORT#:[id number] REPORT STATUS: SignedDATE:10/05/20 TIME: 174 PATIENT: ALLYSSA MATIAS UNIT #: [id number]#: [id number] ROOM/BED:: 42 AGE: 80 SEX: M ATTEND: William Bernstein [facility] AUTHOR: Shay Taveras [employer] * ALL edits or amendments must be made on the electronic/computer document * History of Present Illness HPIChief complaint:Back painAbdominal aortic aneurysm PCP:PCP: Yimi Dykes MD Requesting ClinicianDr. Yimi DykesHPI:Mr. Matias is a 80-year-old male with past medical history significant for hypertension, bladder cancer (status post BCG treatment 2005), atrial fibrillation (cardioversion 2015), sleep apnea, lower extremity chronic venous insufficiency (status post BLE ablations) who presents to the ER with c/oaching abdominal pain that started last night. He recently went to see his PCP with complaints of back that radiated to R leg. Work up included an MRI of lumbar spin which revealed an incidental finding of abdominal aortic aneurysm. Subsequent CTA of chest showed a 6.9 cm infrarenal abdominal aortic aneurysm. Patient was also found to have a 4.6 ascending aortic aneurysm. Patient was referred to CV surgery for evaluationInformant/Historian:PatientPrior records HistoryPast Medical History:Reports: Atrial fib/flutter, Cancer (Bladder), Hypertension, Abdominal aortic aneurysm. Additional Medical History:CBPPast Surgical History:Reports: Bladder surgery. Additional Surgical History:CardioversionAdditional Family HistoryMother: 72 years, natural causesFather: , heart disease, hypertension CKDSister: Bladder cancer, hypertension, kidney disease, diabetes Alcohol Use Alcohol use, [place] dailySmoking status for patients 13 years old or older: Never SmokerOther Social History Local residentAllergies:Coded Allergies:amlodipine (UNKNOWN 09/27/20)edoxaban (From AttendifyAYSA) (UNKNOWN 09/27/20)hydralazine (UNKNOWN 09/27/20)levothyroxine (UNKNOWN 09/27/20) OccupationretiredAmbulatory Status Independent Review of Systems Review of SystemsConstitutional:Denies: chills, fatigue, fever. Skin:Denies: rash, swelling. Eyes:Denies: redness, discharge. Respiratory:Denies: SOB, wheezing. Cardiovascular:Denies: chest pain, ZAMBRANO (dyspnea on exertion). GI:Denies: diarrhea, nausea, vomiting. Musculoskeletal:Reports: extremity swelling. Denies: extremity pain. Objective Physical ExamVS/I O:Last Documented: Result Date Time Pulse Ox 95 10/05 1635 B/P 146/84 10/05 1635 B/P Mean 104 10/05 1635 O2 Delivery Room air 10/05 1635 Pulse 50 10/05 1635 Resp 16 10/05 1635 Temp 97.5 10/05 1400 PATIENT WEIGHT: Weight (lb): Weight (oz): Weight (kg): 115.909 General appearance: alert, awake, orientedHEENT: pupils reactive to light, sclera clear, red, bulbous noseNeck: full range of motion, non-tenderCardiovascular: normal heart sounds, regular rate rhythmRespiratory: aerating well, symmetric expansionAbdomen: soft, non-tenderExtremities: dry, moves allMusculoskeletal: full range of motionNeuro/CLUTCH MECHANIC: alert, oriented X 3Skin: dry, flaky, scaly Diagnosis, Assessment PlanFree Text A P:Mr. Matias is a 80-year-old male with past medical history significant for hypertension, bladder cancer (status post BCG treatment 2005), atrial fibrillation (cardioversion 2015), sleep apnea, lower extremity chronic venous insufficiency (status post BLE ablations), who went to see his PCP with complaints of back that radiated to R leg. Work up included an MRI of lumbar spin which revealed an incidental finding of abdominal aortic aneurysm. Subsequent CTA of chest showed a 6.9 cm infrarenal abdominal aortic aneurysm. Patient was also found to have a 4.6 ascending aortic aneurysm. Patient was referred to CV surgery for evaluation Patient continues to have back and abdominal pain. He was seen and examined by Dr. Pereyra. CTA has been reviewed. In view of 6.9 infrarenal abdominal aortic aneurysm and risk of rupture, endovascular repair of the aneurysm has been recommended. The procedure, risk involved, benefits, alternatives and potential complictions were discussed at length with the patient. He acknowledges understanding and would like to proceed with surgery. We have scheduled him for endovascular repair of abdominal aortic aneurysm tomorrow. As far as the 4.6 ascending aortic aneurysm, Dr. Pereyra recommended conservative management. at 1828 RPT #:[id number] OF REPORTZJItlitmdfkmbm7969-97-59S37:47:00G.PDOC2 [id number] for patient ureqHPTFVTKRQNQWCB6431-19-74C52:28:51 [facility] 2020-10-05 17:47:00 [id number] nBjlQHEzJkA7xA+o+MlVtbM/YUdlY AnozS9A1i7hxP2uGS8TcudMg6fNta5+WF12523-19-35R24:4 7:00 [facility] CenterCardi[facility] Surgery ConsultREPORT#:[id number] REPORT STATUS: SignedDATE:10/05/20 TIME: 1746 PATIENT: ALLYSSA MATIAS UNIT #: [id number]#: [id number] [place] [facility] [place] [birth year] AGE: 80 SEX: M ATTEND: DonovanAdis Sho MDADM AUTHOR: Shay Taveras [employer] * ALL edits or amendments must be made on the electronic/computer document * NitinShay Cordero 10/05/20 1747:History of Present Illness HPIChief complaint:Back painAbdominal aortic aneurysm PCP:PCP: Yimi Dykes MD Requesting ClinicianDr. Yimi DykesHPI:Mr. Matias is a 80-year-old male with past medical history significant for hypertension, bladder cancer (status post BCG treatment 2005), atrial fibrillation (cardioversion 2015), sleep apnea, lower extremity chronic venous insufficiency (status post BLE ablations) who presents to the ER with c/oaching abdominal pain that started last night. He recently went to see his PCP with complaints of back that radiated to R leg. Work up included an MRI of lumbar spin which revealed an incidental finding of abdominal aortic aneurysm. Subsequent CTA of chest showed a 6.9 cm infrarenal abdominal aortic aneurysm. Patient was also found to have a 4.6 ascending aortic aneurysm. Patient was referred to CV surgery for evaluationInformant/Historian:PatientPrior records HistoryPast Medical History:Reports: Atrial fib/flutter, Cancer (Bladder), Hypertension, Abdominal aortic aneurysm. Additional Medical History:CBPPast Surgical History:Reports: Bladder surgery. Additional Surgical History:CardioversionAdditional Family HistoryMother: 72 years, natural causesFather: , heart disease, hypertension CKDSister: Bladder cancer, hypertension, kidney disease, diabetes Alcohol Use Alcohol use, [place] dailySmoking status for patients 13 years old or older: Never SmokerOther Social History Local residentOccupationretiredAmbulatory Status Independent Review of Systems Review of SystemsConstitutional:Denies: chills, fatigue, fever. Skin:Denies: rash, swelling. Eyes:Denies: redness, discharge. Respiratory:Denies: SOB, wheezing. Cardiovascular:Denies: chest pain, ZAMBRANO (dyspnea on exertion). GI:Denies: diarrhea, nausea, vomiting. Musculoskeletal:Reports: extremity swelling. Denies: extremity pain. Objective Physical ExamVS/I O:Last Documented: Result Date Time Pulse Ox 95 10/05 1635 B/P 146/84 10/05 1635 B/P Mean 104 10/05 1635 O2 Delivery Room air 10/05 1635 Pulse 50 10/05 1635 Resp 16 10/05 1635 Temp 97.5 10/05 1400 PATIENT WEIGHT: Weight (lb): Weight (oz): Weight (kg): 115.909 General appearance: alert, awake, orientedHEENT: pupils reactive to light, sclera clear, red, bulbous noseNeck: full range of motion, non-tenderCardiovascular: normal heart sounds, regular rate rhythmRespiratory: aerating well, symmetric expansionAbdomen: soft, non-tenderExtremities: dry, moves allMusculoskeletal: full range of motionNeuro/CLUTCH MECHANIC: alert, oriented X 3Skin: dry, flaky, scaly Diagnosis, Assessment PlanFree Text A P:Mr. Matias is a 80-year-old male with past medical history significant for hypertension, bladder cancer (status post BCG treatment 2005), atrial fibrillation (cardioversion 2015), sleep apnea, lower extremity chronic venous insufficiency (status post BLE ablations), who went to see his PCP with complaints of back that radiated to R leg. Work up included an MRI of lumbar spin which revealed an incidental finding of abdominal aortic aneurysm. Subsequent CTA of chest showed a 6.9 cm infrarenal abdominal aortic aneurysm. Patient was also found to have a 4.6 ascending aortic aneurysm. Patient was referred to CV surgery for evaluation Patient continues to have back and abdominal pain. He was seen and examined by Dr. Pereyra. CTA has been reviewed. In view of 6.9 infrarenal abdominal aortic aneurysm and risk of rupture, endovascular repair of the aneurysm has been recommended. The procedure, risk involved, benefits, alternatives and potential complictions were discussed at length with the patient. He acknowledges understanding and would like to proceed with surgery. We have scheduled him for endovascular repair of abdominal aortic aneurysm tomorrow. As far as the 4.6 ascending aortic aneurysm, Dr. Pereyra recommended conservative management. Stevo Pereyra 10/09/20 1554:HistoryAllergies:Coded Allergies:No Known Drug Allergies (10/05/20) Attestations Physician AttestationAgree w/findings plan:I have seen and examined Mr. Matias. I agree with the findings and plan as documented by ZONIA Redmond. Briefly, 80-year-old gentleman with 6.9 cm infrarenal abdominal aortic aneurysm being admitted for endovascular repair. Procedure, risk, benefit, alternatives,and complications have been explained to the patient. at 1828 RPT #:[id number] OF REPORTEGShukrjqaxidq8014-48-60N30:47:00G.PDOC2 [id number] for patient mjhuQZXRLIKPVTZACV7134-25-22N54:57:28 [facility] 2020-10-05 17:47:00 [id number] QdqDJucuWddXEAD2e8tTAHOGyqmQ0 01Kbknf5sHzpgXCQZxiJSk1Xi+8lcOmo9e1951-33-15X64:4 7:00 [facility] CenterCard[facility] Surgery ConsultREPORT#:[id number] REPORT STATUS: SignedDATE:10/05/20 TIME: 1746 PATIENT: ALLYSSA MATIAS UNIT #: [id number]#: [id number] [address] [birth year] AGE: 80 SEX: M ATTEND: Adis Man [facility] AUTHOR: Shay Taveras NP * ALL edits or amendments must be made on the electronic/computer document * Shay Taveras 10/05/201746:History of Present Illness HPIChief complaint:Back painAbdominal aortic aneurysm PCP:PCP: Yimi Dykes MD Requesting ClinicianDr. Yimi DykesHPI:Mr. Matias is a 80-year-old male with past medical history significant for hypertension, bladder cancer (status post BCG treatment 2005), atrial fibrillation (cardioversion 2015), sleep apnea, lower extremity chronic venous insufficiency (status post BLE ablations) who presents to the ER with c/oaching abdominal pain that started last night. He recently went to see his PCP with complaints of back that radiated to R leg. Work up included an MRI of lumbar spin which revealed an incidental finding of abdominal aortic aneurysm. Subsequent CTA of chest showed a 6.9 cm infrarenal abdominal aortic aneurysm. Patient was also found to have a 4.6 ascending aortic aneurysm. Patient was referred to CV surgery for evaluationInformant/Historian:PatientPrior records HistoryPast Medical History:Reports: Atrial fib/flutter, Cancer (Bladder), Hypertension, Abdominal aortic aneurysm. Additional Medical History:CBPPast Surgical History:Reports: Bladder surgery. Additional Surgical History:CardioversionAdditional Family HistoryMother: 72 years, natural causesFather: , heart disease, hypertension CKDSister: Bladder cancer, hypertension, kidney disease, diabetes Alcohol Use Alcohol use, [place] dailySmoking status for patients 13 years old or older: Never SmokerOther Social History Local residentOccupationretiredAmbulatory Status Independent Review of Systems Review of SystemsConstitutional:Denies: chills, fatigue, fever. Skin:Denies: rash, swelling. Eyes:Denies: redness, discharge. Respiratory:Denies: SOB, wheezing. Cardiovascular:Denies: chest pain, ZAMBRANO (dyspnea on exertion). GI:Denies: diarrhea, nausea, vomiting. Musculoskeletal:Reports: extremity swelling. Denies: extremity pain. Objective Physical ExamVS/I O:Last Documented: Result Date Time Pulse Ox 95 10/05 1635 B/P 146/84 10/05 1635 B/P Mean 104 10/05 1635 O2 Delivery Room air 10/05 1635 Pulse 50 10/05 1635 Resp 16 10/05 1635 Temp 97.5 10/05 1400 PATIENT WEIGHT: Weight (lb): Weight (oz): Weight (kg): 115.909 General appearance: alert, awake, orientedHEENT: pupils reactive to light, sclera clear, red, bulbous noseNeck: full range of motion, non-tenderCardiovascular: normal heart sounds, regular rate rhythmRespiratory: aerating well, symmetric expansionAbdomen: soft, non-tenderExtremities: dry, moves allMusculoskeletal: full range of motionNeuro/CLUTCH MECHANIC: alert, oriented X 3Skin: dry, flaky, scaly Diagnosis, Assessment PlanFree Text A P:Mr. Matias is a 80-year-old male with past medical history significant for hypertension, bladder cancer (status post BCG treatment 2005), atrial fibrillation (cardioversion 2015), sleep apnea, lower extremity chronic venous insufficiency (status post BLE ablations), who went to see his PCP with complaints of back that radiated to R leg. Work up included an MRI of lumbar spin which revealed an incidental finding of abdominal aortic aneurysm. Subsequent CTA of chest showed a 6.9 cm infrarenal abdominal aortic aneurysm. Patient was also found to have a 4.6 ascending aortic aneurysm. Patient was referred to CV surgery for evaluation Patient continues to have back and abdominal pain. He was seen and examined by Dr. Pereyra. CTA has been reviewed. In view of 6.9 infrarenal abdominal aortic aneurysm and risk of rupture, endovascular repair of the aneurysm has been recommended. The procedure, risk involved, benefits, alternatives and potential complictions were discussed at length with the patient. He acknowledges understanding and would like to proceed with surgery. We have scheduled him for endovascular repair of abdominal aortic aneurysm tomorrow. As far as the 4.6 ascending aortic aneurysm, Dr. Pereyra recommended conservative management. Stevo Pereyra 10/09/20 1554:HistoryAllergies:Coded Allergies:No Known Drug Allergies (10/05/20) Attestations Physician AttestationAgree w/findings plan:I have seen and examined Mr. Matias. I agree with the findings and plan as documented by ZONIA Redmond. Briefly, 80-year-old gentleman with 6.9 cm infrarenal abdominal aortic aneurysm being admitted for endovascular repair. Procedure, risk, benefit, alternatives,and complications have been explained to the patient. at 9520 at 1605 RPT #:[id number] OF REPORTXNGsixizspokfj5381-64-34G06:47:00G.PDOC2 [id number] for patient pvsfNBLSYKRUSXNHBO7578-38-20J92:09:41 [facility] 2020-10-05 14:13:00 [id number] 6pKoTAFG3m0eGQO3eGese/PRFOZKN NsQ5rBdPsdYbB0aBHcZO/g9xHuqJlsNDPh8847-13-75I03:1 3:00 [facility] ([facility])EMERGENCY PROVIDER REPORTREPORT#:[id number] REPORT STATUS: SignedDATE:10/05/20 TIME: 1413 PATIENT: ALLYSSA MATIAS UNIT #: [id number]#: [id number] [address] SEX: M PCP PHYS: Yimi Dykes MDSERVICE AUTHOR: William Bernstein MD * ALL edits or amendments must be made on the electronic/computer document * HPI-Abd Pain M 40 and Over GeneralConfirmed Patient YesInitial Greet Date/Time 10/05/20 1356PCPTangChaugle - CV Surgery PresentationChief Complaint Abdominal painHx Obtained From PatientSudden in Onset? YesOnset Occurred Yesterday (evening)Progression since Onset IntermittentLocation Epigastric, PeriumbilicalQuality AchingSeverity: Onset ModerateSeverity: Current No pain currentlyAssociated withReports: Back pain (chronic). Denies: Chest pain, Diarrhea, Fever, Nausea, Shortness of breath, Vomiting. ContextRecent Healthcare Previous diagnosis, Prior workup Free Text HPI NotesFree Text HPI Gfdua95-ktlh-prt male presents the emergency department with intermittent abdominal aching that began last evening. He currently has no pain. Patient recently had aCTA of his chest abdomen and pelvis which revealed a large abdominal aortic aneurysm. Patient has chronic pain in his back. Denies chest pain or LE numbness. Risk-Abd Pain M 40 and Over)( Abdominal Aortic Aneurysm Risk factors reviewed, Prior AAA Review of Systems ROS StatementsAll systems rev neg except as marked. Focused Review of SystemsConstitutionalDenies: Fever, Lethargy. RespiratoryDenies: Cough, non-productive, Cough, productive, Shortness of breath. CardiovascularDenies: Chest pain, Palpitations, Syncope. GIReports: Abdominal pain. Denies: Diarrhea, Nausea, Vomiting. MusculoskeletalReports: Back pain. Denies: Extremity pain, Extremity swelling. Additional Review of SystemsHematologicDenies: Bleeding, Bruising. SkinDenies: Diaphoresis, Erythema, Rash. NeurologicDenies: Change LOC, Focal weakness, Numbness, Syncope. Past Medical History - AdultStated Complaint ABDOMINAL PAIN/HAS AAAAllergiesCoded Allergies:amlodipine (UNKNOWN 09/27/20)edoxaban (From AttendifyAYSA) (UNKNOWN 09/27/20)hydralazine (UNKNOWN 09/27/20)levothyroxine (UNKNOWN 09/27/20) Past Medical History:Reports: Atrial fib/flutter, Cancer (Bladder), Hypertension, Abdominal aortic aneurysm. Additional Medical HistoryCBPPast Surgical History:Reports: Bladder surgery. Alcohol Use Alcohol useSmoking status for patients 13 years old or older: Never SmokerOther Social History Local resident Physical Exam Vital SignsVital SignsFirst Documented: Result Date Time Pulse Ox 96 [...] 1400 Review of Vital Signs Reviewed Focused PEGeneral/Const General/Const Awake, Alert Appearance/Presentation Obese. Eyes Eyes PERRL, No periorbital swelling, No scleral icterusEars/Nose/Throat Ears/Nose/Throat Airway patent, Mucous membranes moist, Pharynx NL, No facialswellingResp/Chest Respiratory/Chest Breath sounds NL, Breath sounds = bilat, No respiratory distressCardiovascular Cardiovascular Heart rate NL, Heart sounds NL, Cap refill not delayedAbdomen/GI Abdomen/GI Soft, Non-tender, No guarding, No distentionMS Back Back No midline vertebral tend, No CVA tendernessSkin Skin Color NL, Warm, DryNeurologic Neurologic Oriented X3, Speech NL Interpretation Diagnostics Lab Results InterpretationConsiderations Reviewed prior recordsResultsLaboratory Tests 10/05/20 1440:[Embedded Image Not Available]Laboratory Tests: 10/05 10/05 10/05 1700 1440 1440 [...] % (Auto) (14.0 - 32.0 %) 23.9 [place] % (Auto) (4.8 - 9.0 %) 9.8 H Eos % (Auto) (0.3 - 3.7 %) 1.6 Baso % (Auto) (0.0 - 2.0 %) 0.6 Neut # (Auto) (2.0 - 7.6 x10 3/uL) 4.07 Lymph # (Auto) (1.0 - 3.8 x10 3/uL) 1.53 [place] # (Auto) (0.1 - 0.8 x10 3/uL) 0.63 Eos # (Auto) (0.0 - 0.2 x10 3/uL) 0.10 Baso # (Auto) (0.0 - 0.2 x10 3/uL) 0.04 Abs Immat Gran (auto) (0.00 - 0.03 x10 3/uL) 0.03 Add Manual Diff NO Immature Gran % (0.0 - 2.0 %) 0.5 Nucleated RBC % (0 - 0 %) 0.0 Nucleated RBCs # (Man) (0.0 - 0.1 x10 3/uL) 0.00 Urines Urine Color (YEL/STRAW) STRAW Urine Appearance (CLEAR) CLEAR Urine pH (5.0 - 7.0) 7.0 Ur Specific [place] (1.005 - 1.030) 1.021 Urine Protein (NEGATIVE) [...] Squamous Epith Cells (NONE SEEN /HPF) NONE SEEN Urine Bacteria (NONE SEEN /HPF) NONE SEEN Urine Mucus (NONE SEEN /LPF) TRACE Recent Impressions:CAT SCAN - CTA ABD PEL W CONT 10/05 4294 Report Impression - Status: SIGNED Entered: 10/05/2020 9080 IMPRESSION:1. Grossly stable aortic root/ascending aortic aneurysm accounting formeasurement error.2. Grossly stable fusiform infrarenal abdominal aortic aneurysmwithout rupture.3. 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 Patent celiac, mesenteric and renal arterial circulation.5. 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 Cardiomegaly with severe coronary atherosclerosis.7. No abnormal solid organ enhancement.8. Left simple renal cyst. SL: [id number] By: Elie Hernandez M.D.CAT SCAN - CT ANGIO CHEST 10/05 1544 Report Impression - Status: SIGNED Entered: 10/05/2020 1630 IMPRESSION:1. Grossly stable aortic root/ascending aortic aneurysm accounting formeasurement error.2. Grossly stable fusiform infrarenal abdominal aortic aneurysmwithout rupture.3. 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 Patent celiac, mesenteric and renal arterial circulation.5. 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 Cardiomegaly with severe coronary atherosclerosis.7. No abnormal solid organ enhancement.8. Left simple renal cyst. SL: [id number] By: Elie Hernandez M.D. ECG #1 InterpretationDate 10/05/20Time 1354Interpreted by and reviewed by Mark ECG Interpretation Normal rate, No STEMIRate 82Rhythm Atrial fibrillation, Ectopic beats - PVC'sConduction/[place] LBBB - complete Re-Evaluation MDM )( Re-Evaluation/Progress #1Time of Re-Eval 1739)( Re-Eval Status UnchangedPain Re-Evaluation Denies painExam Post Tx - General Alert, Vital signs stablePlan Post Re-Eval Plan admit ED CourseMedication(s) OrderedMedication(s) Ordered:Anti-Infective Agents Sig/Wood Start time Last Medication Dose Route Stop Time Status Admin Cefazolin Sodium 3 GM PREOP ONCE 10/06 0500 CKD Sodium Chloride 100 ML IV 10/06 2359 Central Nervous System Agents Sig/Wood Start time Last Medication Dose Route Stop Time Status Admin Acetaminophen 650 MG Q4H PRN PRN 10/05 1745 AC PO 10/06 1643 Hydrocodone Bitart/ 1 TAB Q4H PRN PRN 10/05 1745 AC Acetaminophen PO 10/06 1643 Morphine Sulfate 4 MG Q4H PRN PRN 10/05 1745 AC IV 10/06 1643 Diagnostic Agents Sig/Wood Start time Last Medication Dose Route Stop Time Status Admin Iopamidol 100 ML .STK-MED ONE 10/05 1547 DC 10/05 IV 10/05 1548 1547 Electrolytic, Caloric, And Simba Sig/Wood Start time Last Medication Dose Route Stop Time Status Admin Sodium Chloride 0 ASDIR PRN 10/05 1415 AC IV 10/06 1311 Gastrointestinal Drugs Sig/Wood Start time Last Medication Dose Route Stop Time Status Admin Ondansetron HCl 4 MG Q6H PRN PRN 10/05 1745 AC IV 10/06 1643 ConsultationConsultation Referral/Consult Name Stevo Pereyra MD Time Stamp Assembler Called CT Surgery Call Returned Time 1738 Call Returned Date 10/05/20 Time Stamp Assembler Will see patient Free Text Consult NotesStates he will fix the AAA tomorrow or the next day Patient Discharge Departure Vital Signs/ConditionVital SignsFirst Documented: Result Date Time Pulse Ox 96 [...] signs available at the time of this entry have been reviewed. Condition Stable Clinical ImpressionClinical ImpressionPrimary Impression: Abdominal painSecondary Impressions: AAA (abdominal aortic aneurysm) without rupture Disposition DecisionAdmit Admit Physician Name Adis Man MD Admit Physician Hospitalist )( Admission Accepts Yes )( Accepted Time 174 )( Accepted Date 10/05/20 Discharge/Care PlanCounseled Regarding Imaging studies, Need for admission at 1756RPT #:[id number] OF REPORTEDEmergency department [id number]:13:00G.[id number] ilable for patient [id number]:57:07 HCACL 2020-10-05 13:54:00 [id number] 4:[id number] [address] PATIENT NAME: ALLYSSA MATIAS ADMIT DATE: 10/05/20ACCOUNT NO: [id number] ROOM NO: [facility] AGE: 80 REPORT TYPE: eELECTROCARDIOGRAM REPORT SEX: M ADMITTING PHYSICIAN:Adis Man MD ATTENDING PHYSICIAN:Adis Man MD Order:[id number] Reason : ABD PAIN / AAA Test Date/Time Stamp:SatOct 05 2020 13:54:44Blood Pressure : / mmHGVent. Rate : 082 BPM Atrial Rate : 105 BPM P-R Int : 000 ms QRS Dur : 178 ms QT Int : 456 ms P-R-T Axes : 000 021 155 degrees QTc Int : 532 ms Atrial fibrillation with premature ventricular or aberrantly conducted complexesLeft bundle branch blockAbnormal ECG Confirmed by ELLIOT SCHWARTZ MD ([id number]) on 10/06/2020 7:24:35 AM Referred By: Self Referred Confirmed by:ELLIOT SCHWARTZ MD at 0724 PATIENT NAME: ALLYSSA MATIAS .[id number] AVAvailable for patient [id number]:24:59 [facility]
--- NOTE | 2024-03-20 12:35 | RAD REPORT ---
EXAM DESCRIPTION: RAD - Chest Single View - 03/20/2024 12:27 pm CLINICAL HISTORY: weakness Chest pain. COMPARISON: No comparisons FINDINGS: Portable technique limits examination quality. The lungs are grossly clear. The heart is mildly enlarged. No displaced fractures. IMPRESSION: No acute intrathoracic process suspected.
[2024-03-20 12:39] LABS: Absolute Basophils 0.1 K/uL (0-0.5); Absolute Eosinophils 0.2 K/uL (0-0.5); Absolute Monocytes 0.5 K/uL (0.1-1.3); Absolute Neutrophil 4.1 K/uL (1.8-8.0); Basophils % 1.1 % (0-1.3); Eosinophils % 3.7 % (0-4.4); Hematocrit 23.9 % (39.6-49.0); Hemoglobin 7.3 g/dL (13.6-17.9); Lymphocytes % 17.4 % (15.3-44.8); MCH 26.1 pg (27.0-35.0); MCHC 30.7 g/dL (32.0-36.0); MCV 85.1 fL (80-100); MPV 8.6 fL (7.6-11.3); Monocytes % 8.8 % (3.3-12.3); Nucleated Red Blood Cells % 0.1 % (0-0); Platelets 236 thou/uL (152-406); RBC Red Blood Cell Count 2.81 M/uL (4.33-5.43); Red Cell Distribution Width 17.4 % (12.1-15.2)
[2024-03-20 12:42] LABS: PT Prothrombin Time 40.7 SECONDS (9.4-12.5); Protime INR 3.85
[2024-03-20 13:00] LABS: Albumin 2.9 g/dL (3.4-5.0); Albumin/Globulin Ratio 0.9 (1.1-1.8); Anion Gap 8.5 mEq/L (5.0-15.0); Bilirubin Direct 0.2 mg/dL (0-0.2); Bilirubin Indirect, Calculated 0.2 mg/dL (0.2-0.8); Bilirubin Total 0.4 mg/dL (0.2-1.0); Globulin 3.4 g/dL (2.3-3.5); Magnesium 1.8 mg/dL (1.6-2.4); Potassium 4.5 mEq/L (3.5-5.1); Protein, Total 6.3 g/dL (6.4-8.2)
[2024-03-20 13:04] LABS: Troponin High Sensitivity 127.3 pg/mL (<58.9)
--- NOTE | 2024-03-20 13:52 | ER ---
Nurse's Notes [facility] Name: Juancarlos Cancino Age: 84 yrs Sex: Male : 1940 Arrival Date: 03/20/2024 Time: 11:43 Bed 15 Private MD: Diagnosis: Generalized weakness;Anemia;NSTEMI Presentation: 03/20 11:47 Chief complaint: Patient states: Told to come to ED for low HGB. Reports fatigue. Ebola ll1 Screen: Patient denies travel to an Ebola-affected area in the 21 days before illness onset. Initial Sepsis Screen: Does the patient meet any 2 criteria? No. Patient's initial sepsis screen is negative. Does the patient have a suspected source of infection? No. Patient's initial sepsis screen is negative. Risk Assessment: Do you want to hurt yourself or someone else? Patient reports no desire to harm self or others. 11:47 Method Of Arrival: Ambulatory ll1 11:47 Acuity: NIGEL 3 ll1 11:59 Chief complaint:. Coronavirus screen: Client denies travel out of the [place] in the last ll1 14 days. At this time, the client does not indicate any symptoms associated with coronavirus-19. Onset of symptoms was March 20, 2024. Triage Assessment: 11:59 General: Appears in no apparent distress. Behavior is calm, cooperative, appropriate ll1 for age, Reports fatigue for. Pain: Denies pain. Neuro: Reports weakness needs blood transfusion. Historical: - Allergies: 11:47 No Known Allergies; ll1 - PMHx: 11:47 a-fib; Hypertensive disorder; kidney disease; ll1 - Immunization history:: Adult Immunizations up to date. - Infectious Disease History:: Denies. - Family history:: not pertinent. - Social history:: Smoking status: unknown. Screenin:34 [facility] ED Fall Risk Assessment (Adult) History of falling in the last 3 months, cm10 including since admission Yes- fall prone (multiple falls) (3 pts) Confusion or Disorientation No (0 pts) Intoxicated or Sedated No (0 pts) Impaired Gait Yes (1 pt) Mobility Assist Device Used Yes (1 pt) Altered Elimination No (0 pt) Score/Fall Risk Level 3 or more points = High Risk Oriented to surroundings, Maintained a safe environment, Hourly rounding (assess needs \T\ fall precautionary measures) done, Used ambulatory aids as needed (educated on \T\ assisted with), Implemented a Fall Risk Plan of Care. Abuse screen: Denies threats or abuse. Has been threatened or abused. Nutritional screening: No deficits noted. Tuberculosis screening: No symptoms or risk factors identified. Assessment: 12:33 General: Appears in no apparent distress. comfortable, Behavior is calm, cooperative. cm10 Neuro: No deficits noted. Level of Consciousness is awake, alert, obeys commands, Oriented to person, place, time, situation, Appropriate for age Reports dizziness. Cardiovascular: No deficits noted. Patient's skin is warm and dry. Cardiovascular: Reports shortness of breath, Denies chest pain. Respiratory: No deficits noted. Reports shortness of breath on exertion Airway is patent Respiratory effort is even, unlabored, Respiratory pattern is regular, agonal. Derm:. 12:44 General: Appears in no apparent distress. comfortable, Behavior is calm, cooperative. al5 Pain: Denies pain. Neuro: No deficits noted. Level of Consciousness is awake, alert, obeys commands, Oriented to person, place, time, situation. Neuro: Reports dizziness. Cardiovascular: Patient's skin is warm and dry. Respiratory: Airway is patent Respiratory effort is even, unlabored, Respiratory pattern is regular, symmetrical. Derm: Skin is pink, warm \T\ dry. normal. 14:50 Reassessment: Patient appears in no apparent distress at this time. No changes from al5 previously documented assessment. Patient and/or family updated on plan of care and expected duration. Pain level reassessed. Patient is alert, oriented x 3, equal unlabored respirations, skin warm/dry/pink. Vital Signs: 11:59 BP 117 / 63; Pulse 58; Resp 18; Temp 98; Pulse Ox 100% on R/A; Weight 106.59 kg; Height ll1 6 ft. 0 in. ; Pain 0/10; 12:45 BP 114 / 73; Pulse 57; Resp 15; Pulse Ox 100% on R/A; al5 14:45 BP 127 / 77; Pulse 50; Resp 16; Temp 98; Pulse Ox 100% on R/A; al5 11:59 Body Mass Index 31.87 (106.59 kg, 182.88 cm) ll1 11:59 Pain Scale: Adult ll1 ED Course: 11:46 Patient arrived in ED. im 11:47 Jeff Kay MD is Attending Physician. rt 11:47 Arm band placed on Patient placed in an exam room, on a stretcher. ll1 11:48 Triage completed. ll1 12:16 Erica Hawk, RN is Primary Nurse. cm10 12:29 XRAY Chest (1 view) In Process Unspecified. EDMS 12:31 Type And Screen Sent. cm10 12:31 Basic Metabolic Panel Sent. cm10 12:31 CBC with Diff Sent. cm10 12:31 Magnesium Sent. cm10 12:31 LFT's Sent. cm10 12:31 NT PRO-BNP Sent. cm10 12:31 PT-INR Sent. cm10 12:31 Troponin HS Sent. cm10 12:31 Initial lab(s) drawn, by me, sent to lab. T\T\S collected, blood band applied to patient. cm10 Inserted saline lock: 20 gauge in right antecubital area, using aseptic technique. Blood collected. 12:34 Patient has correct armband on for positive identification. Bed in low position. Call cm10 light in reach. Side rails up X2. Client placed on continuous cardiac and pulse oximetry monitoring. NIBP monitoring applied. classroom monitor on. 12:44 Primary Nurse role handed off by Erica Hawk RN al5 12:44 Louann Leblanc RN is Primary Nurse. al5 13:51 Giovanni Willis MD is Hospitalizing Provider. rt 15:33 No provider procedures requiring assistance completed. Patient admitted, IV remains in ll1 place. 15:34 Provided Education on: Need for admit. ll1 Administered Medications: No medications were administered Medication: 12:34 VIS not applicable for this client. cm10 Outcome: 13:52 Decision to Hospitalize by Provider. rt 15:33 Admitted to Tele accompanied by nurse, via wheelchair, room 414, ll1 15:33 Condition: good 15:33 Instructed on the need for admit, 15:34 Patient left the ED. ll1 Signatures: Dispatcher [employer] Kylie Ratliff RN RN ll1 Jeff Kay MD MD rt Kareen Bernstein im Erica Hawk RN RN cm10 Louann Leblanc RN RN al5 Corrections: (The following items were deleted from the chart) 11:59 11:47 Chief complaint: Patient states: Told to come to ED for low HGB ll1 ll1
--- NOTE | 2024-03-20 13:52 | EDPHYS ---
Physician Documentation [facility] Name: Juancarlos Cancino Age: 84 yrs Sex: Male : 1940 Arrival Date: 03/20/2024 Time: 11:43 Bed 15 Private MD: ED Physician Jeff Kay HPI: 03/20 14:18 This 84 yrs old Male presents to ER via Ambulatory with complaints of Abnormal Lab rt Results. 14:18 Patient presents to the ED with reported anemia. He reports feeling weak, fatigued past rt several days. Denies chest pain. Patient denies any current rectal bleeding or melena. Denies other acute complaints, symptoms are moderate in severity, no other aggravating or alleviating factors.. Historical: - Allergies: :47 No Known Allergies; ll1 - PMHx: 11:47 a-fib; Hypertensive disorder; kidney disease; ll1 - Immunization history:: Adult Immunizations up to date. - Infectious Disease History:: Denies. - Family history:: not pertinent. - Social history:: Smoking status: unknown. ROS: 14:18 Cardiovascular: Negative for chest pain, palpitations, and edema, Respiratory: Negative rt for shortness of breath, cough, wheezing, and pleuritic chest pain, Abdomen/GI: Negative for abdominal pain, nausea, vomiting, diarrhea, and constipation, MS/Extremity: Negative for injury and deformity, Skin: Negative for injury, rash, and discoloration, 14:18 Constitutional: Positive for fatigue, Negative for fever, 14:18 Neuro: Positive for dizziness, weakness, Exam: 14:18 Constitutional: This is a well developed, well nourished patient who is awake, alert, rt and in no acute distress. Head/Face: Normocephalic, atraumatic. Chest/axilla: Normal chest wall appearance and motion. Nontender with no deformity. No lesions are appreciated. Cardiovascular: Regular rate and rhythm with a normal S1 and S2. No gallops, murmurs, or rubs. Normal PMI, no JVD. No pulse deficits. Respiratory: Lungs have equal breath sounds bilaterally, clear to auscultation and percussion. No rales, rhonchi or wheezes noted. No increased work of breathing, no retractions or nasal flaring. Abdomen/GI: Soft, non-tender, with normal bowel sounds. No distension or tympany. No guarding or rebound. No evidence of tenderness throughout. MS/ Extremity: Pulses equal, no cyanosis. Neurovascular intact. Full, normal range of motion. Neuro: Awake and alert, GCS 15, oriented to person, place, time, and situation. Cranial nerves II-XII grossly intact. Motor strength 5/5 in all extremities. Sensory grossly intact. Cerebellar exam normal. Normal gait. 14:18 ECG was reviewed by the Attending Physician. Vital Signs: 11:59 BP 117 / 63; Pulse 58; Resp 18; Temp 98; Pulse Ox 100% on R/A; Weight 106.59 kg; Height ll1 6 ft. 0 in. ; Pain 0/10; 12:45 BP 114 / 73; Pulse 57; Resp 15; Pulse Ox 100% on R/A; al5 14:45 BP 127 / 77; Pulse 50; Resp 16; Temp 98; Pulse Ox 100% on R/A; al5 11:59 Body Mass Index 31.87 (106.59 kg, 182.88 cm) ll1 11:59 Pain Scale: Adult ll1 MDM: 11:48 Patient medically screened. rt 14:18 Differential Diagnosis Anemia, NSTEMI, dysrhythmia. Data reviewed: vital signs, nurses rt notes, lab test result(s), EKG, radiologic studies. Consideration of Admission/Observation Patient was admitted/placed on observation. Management of patient was discussed with the following: Hospitalist: Agrees to admit. Independent interpretation of the following test(s) in the Emergency Department X-Ray: My interpretation is No consolidation seen on interpretation of x-ray images. Care significantly affected by the following chronic conditions: A-fib, CKD. Counseling: I had a detailed discussion with the patient and/or guardian regarding the historical points, exam findings, and any diagnostic results supporting the discharge/admit diagnosis, lab results, radiology results, the need for further work-up and treatment in the hospital. Response to treatment: the patient's symptoms have mildly improved after treatment. 03/20 12:17 Order name: Basic Metabolic Panel; Complete Time: 13:12 rt 03/20 12:17 Order name: CBC with Diff rt 03/20 12:17 Order name: LFT's; Complete Time: 13:12 rt 03/20 12:17 Order name: Magnesium; Complete Time: 13:12 rt 03/20 12:17 Order name: NT PRO-BNP; Complete Time: 13:12 rt 03/20 12:17 Order name: PT-INR; Complete Time: 12:43 rt 03/20 12:17 Order name: Troponin HS; Complete Time: 13:12 rt 03/20 12:17 Order name: Type And Screen rt 03/20 13:34 Order name: ABO/RH no charge; Complete Time: 13:44 EDMS 03/20 14:01 Order name: T4 Free EDMS 03/20 14:01 Order name: Thyroid Stimulating Hormone EDMS 03/20 14:01 Order name: Urinalysis w/ reflexes EDMS 03/20 14:01 Order name: CBC with Automated Diff EDMS 03/20 14:01 Order name: CBC with Automated Diff EDMS 03/20 14:01 Order name: CBC with Automated Diff EDMS 03/20 14:01 Order name: CBC with Automated Diff EDMS 03/20 14:01 Order name: Comprehensive Metabolic Panel EDMS 03/20 14:01 Order name: Comprehensive Metabolic Panel EDMS 03/20 14:01 Order name: Comprehensive Metabolic Panel EDMS 03/20 14:01 Order name: Comprehensive Metabolic Panel EDMS 03/20 14:01 Order name: Lipid Profile EDMS 03/20 14:01 Order name: Lipid Profile EDMS 03/20 14:01 Order name: Magnesium EDMS 03/20 14:01 Order name: Magnesium EDMS 03/20 14:01 Order name: Magnesium EDMS 03/20 14:01 Order name: Magnesium EDMS 03/20 14:01 Order name: Phosphorus EDMS 03/20 14:01 Order name: Phosphorus EDMS 03/20 14:01 Order name: Phosphorus EDMS 03/20 14:01 Order name: Phosphorus EDMS 03/20 14:01 Order name: Troponin High Sensitivity EDMS 03/20 14:01 Order name: Troponin High Sensitivity EDMS 03/20 14:01 Order name: Troponin High Sensitivity EDMS 03/20 12:17 Order name: XRAY Chest (1 view); Complete Time: 12:43 rt 03/20 14:01 Order name: Echo with Doppler EDMS 03/20 15:18 Order name: CT EDMS 03/20 12:17 Order name: EKG; Complete Time: 12:17 rt 03/20 14:01 Order name: CONS Physician Consult EDMS 03/20 12:17 Order name: Cardiac monitoring; Complete Time: 13:59 rt 03/20 12:17 Order name: EKG - Nurse/Tech; Complete Time: 13:59 rt 03/20 12:17 Order name: IV Saline Lock; Complete Time: 12:31 rt 03/20 12:17 Order name: Labs collected and sent; Complete Time: 12:31 rt 03/20 12:17 Order name: O2 Per Protocol; Complete Time: 12:31 rt 03/20 12:17 Order name: O2 Sat Monitoring; Complete Time: 12:31 rt EC:18 Rate is 50 beats/min. Rhythm is irregularly irregular, A fib with No ectopy, Left rt bundle branch block. QRS [place] is Normal. QT interval is normal. No Q waves. Administered Medications: No medications were administered Disposition Summary: 03/20/24 13:52 Hospitalization Ordered Notes: Hospitalization Status: Observation rt Provider: Giovanni Willis rt [facility] rt Condition: Stable rt Problem: new rt Symptoms: are unchanged rt Bed/Room Type: Standard rt Room Assignment: 414(03/20/24 14:06) eb Diagnosis - Generalized weakness rt - Anemia rt - NSTEMI rt Forms: - Medication Reconciliation Form rt - SBAR form rt - Leadership Thank You Letter rt Critical care time excluding procedures: 14:23 Critical care time: Bedside Care: 30 minutes, Consultation: 5 minutes. Total time: 35 rt minutes Signatures: Dispatcher [employer] EDPA Greer Lopez Lynsay, RN RN ll1 Jeff Kay MD MD rt Corrections: (The following items were deleted from the chart) 14: 13:52 rt eb
--- NOTE | 2024-03-20 14:02 | P.HP ---
Certification for Inpatient Patient admitted to: Inpatient With expected LOS: >2 Midnights Patient will require the following post-hospital care: None Practitioner: I am a practitioner with admitting privileges, knowledge of patient current condition, hospital course, and medical plan of care. Services: Services provided to patient in accordance with Admission requirements found in Title 42 Section 412.3 of the Code of Federal Regulations <Katie Purvis - Last Filed: 03/20/24 15:28> Patient History Date of Service: 03/20/24 Reason for admission: Generalized weakness, dyspnea on exertion, A-fib, anemia History of Present Illness: Mr. Cancino is a 84-year-old gentleman with a past medical history of hypertension, A-fib, left bundle branch block, CHF, infrarenal abdominal aortic aneurysm (status post mesh repair), CKD, hypothyroidism, spinal muscular atrophy, and now anemia (last recorded 08/26/23 at 11.7). 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 Over the last couple weeks to months, he has been having balance disturbances, some dyspnea on exertion, fatigue, generalized weakness, early satiety, and about a 20 pound unintended weight loss. His symptoms motivated him to follow-up with his PCP who ordered some standard blood work. Mr. Cancino was advised by his PCP to come [facility] the [facility] emergency room secondary to anemia of 7.3 On exam he is alert, pale, oriented, and engaging. He notes the above symptoms in addition to lower extremity edema, weakness, discoloration. He states that he has had a recent colonoscopy with removal of 3 or 4 polyps. He denies melena since the colonoscopy although admits to it prior. Denies hemoptysis, chest pain, hematuria, abdominal pain, N/V/D, admits to some constipation, gingival bleeding, but does note areas of skin excoriation/pruritic rash to his back and extremities. Labs in the emergency department: WBC 5.9 with no shift, H/H 7.3/23.9 normal MCV, mildly decreased MCH with platelets of 236, electrolytes sodium 140, potassium 4.5, magnesium 1.8, chloride 112, bicarb 24, BUN 35, creatinine 1.58 with a GFR of 43 (08/26/24 creatinine 1.27, GFR 57 but that was improved over all past values) , normal liver enzymes, troponin 127.3, INR 3.85 (will hold anticoagulant until tomorrow) Imaging in the emergency department consisted of a chest x-ray which showed mild cardiomegaly otherwise negative acute findings. CT abdomen and pelvis ordered on admission, results are pending, echo ordered and results are pending Home medications list reviewed: Yes - Past Medical/Surgical History Diabetic: No -: Hypertension -: A-fib -: CHF -: CKD -: Hypothyroidism -: Spinal muscular atrophy -: Recent colonoscopy Psychosocial/ Personal History: Lives in [place] with his . - Family History Family History: Reviewed- Non-Contributory - Social History Smoking Status: Former smoker Alcohol use: Yes CD- Drugs: No Caffeine use: Yes Place of Residence: Home <Katie Purvis - Last Filed: 03/20/24 15:28> Date of Service: 03/20/24 <Giovanni Willis - Last Filed: 03/20/24 17:15> Allergies No Known Allergies Allergy (Unverified 05/02/23 17:31) Home Medications: Amlodipine [Norvasc*] 1 tab PO DAILY 05/03/23 Carvedilol [Coreg] 1 tab PO BID 05/03/23 Doxycycline Hyclate 1 tab PO BID 05/03/23 Edoxaban Tosylate [Savaysa] 1 tab PO DAILY 05/03/23 Gabapentin [Neurontin*] 1 tab PO TID 05/03/23 Hydralazine [Apresoline*] 1 tab PO BID 05/03/23 Levothyroxine Sodium 1 tab PO DAILY 05/03/23 Losartan Potassium 1 tab PO DAILY 05/03/23 Omeprazole 1 tab PO DAILY 05/03/23 Spironolactone [Aldactone*] 1 tab PO DAILY 05/03/23 hydroCHLOROthiazide [Hydrodiuril*] 1 tab PO DAILY 05/03/23 Review of Systems 10-point ROS is otherwise unremarkable General: Weakness, Malaise, As per HPI Respiratory: SOB with Excertion Cardiovascular: Other (History A-fib, denies palpitations or chest pain) Gastrointestinal: Constipation, Other (Denies melena or abdominal pain) Integumentary: Other (Complains of itching and rash to back and extremities) Neurological: Weakness, Incoordination, As per HPI <Katie Purvis - Last Filed: 03/20/24 15:28> Physical Examination - Physical Exam General: Alert, In no apparent distress, Oriented x3, Other ([place]) HEENT: Atraumatic, Normocephalic Neck: Supple Respiratory: Clear to auscultation bilaterally Cardiovascular: Other (Lower extremities: Discolored (darkened) and edematous), Edema, Irregular heart rate/rhythm Capillary refill: <2 Seconds Gastrointestinal: Normal bowel sounds, Soft and benign Musculoskeletal: No clubbing, Other (Loss of muscle strength to lower extremities, left hand is Dupuytren's contracture) Integumentary: Other (Abraded, erythematous oval rash to left upper back, extremities with excoriated erythematous rash, lower extremities with PAD discoloration) Neurological: Normal speech, Normal affect, Other (Hard of hearing), Abnormal tone Lymphatics: No axilla or inguinal lymphadenopathy External genitalia: Deferred Rectal: Deferred - Studies Laboratory Data (last 24 hrs) 03/20/24 03/20/24 03/20/24 11:28 11:28 11:28 WBC 5.90 Hgb 7.3 L Hct 23.9 L Plt Count 236 PT 40.7 H INR 3.85 Sodium 140 Potassium 4.5 BUN 35 H Creatinine 1.58 H Glucose 104 Magnesium 1.8 Total Bilirubin 0.4 AST 13 L ALT 16 Alkaline Phosphatase 83 <Katie Purvislen - Last Filed: 03/20/24 15:28> - Studies Laboratory Data (last 24 hrs) 03/20/24 03/20/24 03/20/24 11:28 11:28 11:28 WBC 5.90 Hgb 7.3 L Hct 23.9 L Plt Count 236 PT 40.7 H INR 3.85 Sodium 140 Potassium 4.5 BUN 35 H Creatinine 1.58 H Glucose 104 Magnesium 1.8 Total Bilirubin 0.4 AST 13 L ALT 16 Alkaline Phosphatase 83 <Giovanni Willis - Last Filed: 03/20/24 17:15> Assessment and Plan - Plan A-fib with CHF Telemetry Eliquis (hold until tomorrow) Coreg Spironolactone Echo Consult cardiology Elevated troponin with stable left bundle branch block/HTN Monitor and trend, serial troponins Amlodipine Hydralazine Anemia/generalized weakness Monitor and trend H&H 1 unit PRBCs Lasix 20 mg IV daily INR elevated at 3.85, PT 40.7 CKD Losartan 100 mg p.o. daily Monitor and trend creatinine and GFR Monitor and trend electrolytes CT abdomen pelvis Hypothyroidism TSH/free T4 Levothyroxine VTE/GI prophylaxis Eliquis/Protonix Code Status Full - Advance Directives Does patient have a Living Will: No Does patient have a Durable POA for Healthcare: No <Katie Purvis Robert - Last Filed: 03/20/24 15:28> - Plan Pt seen and examined. I agree with the note by the DEMO COORDINATOR. Pt is an 84 yo male with past medical history of A. fib, htn and CKD who presents with generalized weakness and dizziness. The symptoms started a few days ago and his PCP ordered lab study that showed Hgb 7.4. His PCP called him today and advised him to come to the ER due to low blood level ( hgb 7.3). On admission, lab studies show wbc 5.9, Hgb 7.3, K 4.5, Cr 1.58, troponin 127, BNP 2462. At bedside, pt is in NAD. He had colonoscopy last month and GI removed 3 polyps. Pt reports having GI bleed prior to the colonoscopy. A/P: Generalized weakness: Due to anemia. Will transfuse 1 unit of blood and monitor H/H. Consulted PT. Anemia: Hgb is 7.3. Will transfuse 1 unit of blood and monitor H/H. Pt denies any GI bleed. FLAQUITO on CKD: Cr is 1.58. Will continue IVF, avoid nephrotoxins, and monitor renal function. He takes losartan 100mg po daily at home. Elevated troponin with LBBB/ NSTEMI: Pt denies any chest pain. Likely due to anemia. Will consult cardiology. Troponin is 127. Will trend toponin q6h. Elevated BNP: BNP is 2462. Will f/u Echo. A.Fib: Will continue telemetry and coreg. Hold Eliquis. Htn: Continue coreg. Hypothyroidism: Synthroid. DVT ppx: SCD Code: full <Giovanni Willis - Last Filed: 03/20/24 17:15>
--- NOTE | 2024-03-20 15:18 | RAD REPORT ---
EXAM DESCRIPTION: CT - Abdomen Pelvis Wo Contrast - 03/20/2024 2:34 pm CLINICAL HISTORY: Abdominal pain abdominal aortic aneurysm COMPARISON: None TECHNIQUE: Computed axial tomography of the abdomen and pelvis was obtained. IV and oral contrast we re not requested. All CT scans are performed using dose optimization technique as appropriate and may include automated exposure control or mA/KV adjustment according to patient size. FINDINGS: The evaluation of solid organs, vessels and bowel is limited secondary to the lack of con trast administration. Some images are degraded by patient motion artifact The liver, spleen, pancreas, adrenals and right kidney appear grossly normal. A 3.7 centimeter cyst left kidney. Additional smaller cyst. No evidence of diverticulitis. Prostate gland moderately enlarged. Small inguinal hernias. Spondylosis lumbar spine results in spina l stenosis. An aorto bi-iliac stent has been placed into an abdominal aortic aneurysm. The aneurysm measures 7.1 centimeters. No retroperitoneal hematoma. IMPRESSION: An aorto bi-iliac stent has been placed into an abdominal aortic aneurysm
[2024-03-20] MEDS ORDERED: SODIUM CHLORIDE 0.9% 10ML INJ IV PRN (15:21)
[2024-03-20 16:35] VITALS: BMI 4569.5
[2024-03-20 16:57] LABS: Thyroid Stimulating Hormone 0.071 uIU/mL (0.358-3.740)
[2024-03-20] MEDS: FUROSEMIDE 20 MG/ 2ML VIAL IV SCH (17:35)
[2024-03-20] MEDS: carvediloL 12.5 MG TAB PO SCH (17:51)
[2024-03-20] MEDS ORDERED: NA CHLORIDE 0.9% 250 ML IV SCH (18:00)
[2024-03-20 18:31] LABS: Specific Gravity 1.015 (1.005-1.030); Sqamous Epithelial <5 /HPF (None Seen); Urine Bacteria None Seen /HPF (<20); Urine Bilirubin NEGATIVE (Negative); Urine Blood Negative (Negative); Urine Clarity Clear (Clear); Urine Color Light-Yellow (Yellow); Urine Culture Reflex Order NOT NEEDED; Urine Glucose NEGATIVE (Negative); Urine Ketones NEGATIVE (Negative); Urine Microscopic Reflex YN ORDER UMIC; Urine Mucus Slight /HPF (None Seen); Urine Nitrite NEGATIVE (Negative); Urine Protein TRACE (Negative); Urine RBC <5 /HPF (None Seen); Urine Urobilinogen Normal (Normal); Urine WBC <5 /HPF (<5); Urine pH 5.5 (5.0-7.0)
[2024-03-20] MEDS ORDERED: APIXABAN 5 MG TABLET PO SCH (21:00)
[2024-03-20] MEDS: HYDRALAZINE HCL 25 MG TABLET PO SCH (21:00)
[2024-03-20] MEDS: GABAPENTIN 100 MG CAP PO SCH (21:11)
[2024-03-20] MEDS: PANTOPRAZOLE 40 MG INJ IVP SCH (21:12)
[2024-03-21 03:36] LABS: Absolute Eosinophils 0.3 K/uL (0-0.5); Absolute Lymphocytes (CBC) 1.2 K/uL (0.7-4.9); Absolute Monocytes 0.7 K/uL (0.1-1.3); Absolute Neutrophil 3.8 K/uL (1.8-8.0); Basophils % 0.6 % (0-1.3); Eosinophils % 5.3 % (0-4.4); Hematocrit 24.3 % (39.6-49.0); Hemoglobin 7.9 g/dL (13.6-17.9); Lymphocytes % 20.3 % (15.3-44.8); MCH 27.3 pg (27.0-35.0); MCHC 32.6 g/dL (32.0-36.0); MCV 83.8 fL (80-100); Monocytes % 10.8 % (3.3-12.3); Nucleated Red Blood Cells % 0.3 % (0-0); Platelets 220 thou/uL (152-406); Red Cell Distribution Width 16.7 % (12.1-15.2)
[2024-03-21 05:50] VITALS: O2SAT 99
[2024-03-21] MEDS ORDERED: LEVOTHYROXINE SOD 0.1 MG TAB PO SCH (06:30)
[2024-03-21 06:57] LABS: Hematocrit 27.5 % (39.6-49.0); Hemoglobin 9.2 g/dL (13.6-17.9)
[2024-03-21 07:21] LABS: Albumin 3.4 g/dL (3.4-5.0); Anion Gap 8.1 mEq/L (5.0-15.0); Bilirubin Total 0.8 mg/dL (0.2-1.0); Globulin 3.4 g/dL (2.3-3.5); Magnesium 1.8 mg/dL (1.6-2.4); Phosphorus 3.3 mg/dL (2.5-4.9); Potassium 4.1 mEq/L (3.5-5.1); Protein, Total 6.8 g/dL (6.4-8.2)
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
[2024-03-21] MEDS: LOSARTAN POTASSIUM 50 MG TABLET PO SCH (09:25)
[2024-03-21] MEDS: AMLODIPINE 2.5 MG TAB PO SCH (09:25)
[2024-03-21] MEDS: SPIRONOLACTONE 25 MG TABLET PO SCH (09:26)
[2024-03-21 09:41] VITALS: BP 114/56
[2024-03-21 10:29] VITALS: TEMP 96.9
--- NOTE | 2024-03-21 13:33 | P.CNS ---
Date of Consult: 03/21/24 Chief Complaint: Generalized weakness, dyspnea on exertion, A-fib, anemia History of Present Illness: Patient with PMH of atrial fibrillation, chronic congestive heart failure infrarenal AAA, presented with weakness, fatigue and abnormal blood work, denies any other cardiac symptoms. Allergies No Known Allergies Allergy (Unverified 05/02/23 17:31) Home Medications: Doxycycline Hyclate 1 tab PO BID 05/03/23 Edoxaban Tosylate [Savaysa] 1 tab PO DAILY 05/03/23 Gabapentin [Neurontin*] 1 tab PO TID 05/03/23 Hydralazine [Apresoline*] 1 tab PO BID 05/03/23 Levothyroxine Sodium 1 tab PO DAILY 05/03/23 Losartan Potassium 1 tab PO DAILY 05/03/23 hydroCHLOROthiazide [Hydrodiuril*] 1 tab PO DAILY 05/03/23 - Past Medical/Surgical History Diabetic: No -: Hypertension -: A-fib -: CHF -: CKD -: Hypothyroidism -: Spinal muscular atrophy -: Recent colonoscopy -: Aorta repair-3 days ago -: appendectomy Psychosocial/ Personal History: Lives in [place] with his . - Social History Smoking Status: Unknown if ever smoked Alcohol use: Yes CD- Drugs: No Caffeine use: Yes Place of Residence: Home Review of Systems 10-point ROS is otherwise unremarkable Physical Examination Temp Pulse Resp BP Pulse Ox 96.9 F 49 L 19 114/56 L 99 03/21/24 08:00 03/21/24 09:26 03/21/24 08:00 03/21/24 09:26 03/21/24 08:00 General: Alert, In no apparent distress HEENT: Atraumatic, PERRLA, Mucous membr. moist/pink, EOMI, Sclerae nonicteric Neck: Supple, 2+ carotid pulse no bruit, No LAD, Without JVD or thyroid abnormality Respiratory: Clear to auscultation bilaterally, Normal air movement Cardiovascular: Regular rate/rhythm, Normal S1 S2 Gastrointestinal: Normal bowel sounds, No tenderness Musculoskeletal: No tenderness Integumentary: No rashes Neurological: Normal gait, Normal speech, Normal tone, Normal affect Lymphatics: No axilla or inguinal lymphadenopathy Laboratory Data (last 24 hrs) 03/20/24 03/20/24 11:28 06:12 WBC 5.90 Hgb 7.3 L D 9.2 L Hct 23.9 L 27.5 L Plt Count 236 - Problems (1) Atrial fibrillation Current Visit: Yes Status: Acute Plan: Patient is currently in sinus rhythm, Rate is in the 40-50, off AVN blocking agents patient is anemic with drop in Hgb, he recently had a colonscopy with removal of polyps. lower Eliquis dose to 2.5 mg po BID. follow up with GI as outpatient. (2) Chronic congestive heart failure Current Visit: Yes Status: Acute Plan: euvolemic on exam, continue current medications (3) Anemia Current Visit: Yes Status: Acute Plan: as above.
== END 2024-03-21 16:39 | disposition home or self-care (01) | DRG 281 ==
LOC: ER 11:43 → ERHOLD 13:52 → 4TH 14:50
PROVIDERS: ADMIT Hospitalist; ATTEND Hospitalist
PROC: 30233N1 Transfusion of Nonautologous Red Blood Cells into Peripheral Vein, Percutaneous Approach (ICD-10-PCS; principal; 2024-03-20)
DX: I13.0 Hypertensive heart and chronic kidney disease with heart failure and stage 1 through stage 4 chronic kidney disease, or unspecified chronic kidney disease (principal); I48.20 Chronic atrial fibrillation, unspecified; I21.A1 Myocardial infarction type 2; N17.9 Acute kidney failure, unspecified; I50.9 Heart failure, unspecified; N18.9 Chronic kidney disease, unspecified; D63.1 Anemia in chronic kidney disease; I73.9 Peripheral vascular disease, unspecified; I44.7 Left bundle-branch block, unspecified; E03.9 Hypothyroidism, unspecified; K59.00 Constipation, unspecified; S80.211A Abrasion, right knee, initial encounter; Z79.02 Long term (current) use of antithrombotics/antiplatelets; Z79.890 Hormone replacement therapy; Z79.899 Other long term (current) drug therapy; Z87.891 Personal history of nicotine dependence; W01.0XXA Fall on same level from slipping, tripping and stumbling without subsequent striking against object, initial encounter; Y93.9 Activity, unspecified; Y92.9 Unspecified place or not applicable; Y99.9 Unspecified external cause status
CPT/HCPCS: 36415; 36430; 71045; 74176; 80048; 80053; 80061; 80076; 81001; 83735; 83880; 84100; 84439; 84443; 84484; 85014; 85018; 85025; 85610; 86850; 86900; 86901; 86920; 99285; C9113; J1940; J7050; P9016

== ENCOUNTER 2025-01-13 09:57 | Observation (INO) | payer OTHER ==
[2025-01-13 10:39] LABS: Absolute Basophils 0.1 K/uL (0-0.5); Absolute Eosinophils 0.3 K/uL (0-0.5); Absolute Lymphocytes (CBC) 1.2 K/uL (0.7-4.9); Absolute Monocytes 0.6 K/uL (0.1-1.3); Absolute Neutrophil 4.9 K/uL (1.8-8.0); Basophils % 1.3 % (0-1.3); Hematocrit 40.9 % (39.6-49.0); Hemoglobin 14.4 g/dL (13.6-17.9); Lymphocytes % 16.4 % (15.3-44.8); MCH 33.4 pg (27.0-35.0); MCHC 35.3 g/dL (32.0-36.0); MCV 94.7 fL (80-100); MPV 9.5 fL (7.6-11.3); Monocytes % 8.9 % (3.3-12.3); Neutrophils % 69.4 % (41.7-73.7); Nucleated Red Blood Cells % 0.1 % (0-0); Platelets 148 thou/uL (152-406); RBC Red Blood Cell Count 4.32 M/uL (4.33-5.43); Red Cell Distribution Width 14.5 % (12.1-15.2)
[2025-01-13] MEDS ORDERED: NA CHLORIDE 0.9% 1,000 ML ONE (10:43)
[2025-01-13 10:59] LABS: Albumin 3.2 g/dL (3.4-5.0); Albumin/Globulin Ratio 0.8 (1.1-1.8); Anion Gap 8.1 mEq/L (5.0-15.0); Bilirubin Direct 0.3 mg/dL (0-0.2); Bilirubin Indirect, Calculated 0.4 mg/dL (0.2-0.8); Bilirubin Total 0.7 mg/dL (0.2-1.0); Globulin 3.9 g/dL (2.3-3.5); Magnesium 1.8 mg/dL (1.6-2.4); Potassium 4.1 mEq/L (3.5-5.1); Protein, Total 7.1 g/dL (6.4-8.2)
[2025-01-13 11:17] LABS: Troponin High Sensitivity 210.9 pg/mL (<58.9)
--- NOTE | 2025-01-13 11:19 | RAD REPORT ---
EXAM: Chest Single View HISTORY: 84 years Male COUGH COMPARISON: 03/20/2024 FINDINGS: LUNGS/PLEURA: The lungs are clear. No pleural effusions or pneumothorax. No pulmonary edema. CARDIAC/MEDIASTINUM: Mild cardiomegaly UPPER ABDOMEN: No significant abnormality. BONES: No acute abnormality. LINES/TUBES/OTHER: N/A IMPRESSION: No evidence of acute cardiopulmonary disease. No significant change from prior.
[2025-01-13 11:27] LABS: PT Prothrombin Time 21.5 SECONDS (10-13.0); Protime INR 1.95
[2025-01-13 11:55] LABS: Calcium Oxalate Crystals- Ur Moderate /HPF (None Seen); Specific Gravity 1.022 (1.005-1.030); Sqamous Epithelial <5 /HPF (None Seen); Urine Bacteria <20 /HPF (<20); Urine Bilirubin NEGATIVE (Negative); Urine Blood Negative (Negative); Urine Clarity Turbid (Clear); Urine Color Yellow (Yellow); Urine Culture Reflex Order NOT NEEDED; Urine Glucose NEGATIVE (Negative); Urine Ketones NEGATIVE (Negative); Urine Microscopic Reflex YN ORDER UMIC; Urine Mucus Slight /HPF (None Seen); Urine Nitrite NEGATIVE (Negative); Urine Protein TRACE (Negative); Urine RBC <5 /HPF (None Seen); Urine Urobilinogen Normal (Normal); Urine WBC <5 /HPF (<5)
[2025-01-13] MEDS ORDERED: ONDANSETRON 4 MG/2 ML VIAL ONE (12:54)
[2025-01-13] MEDS ORDERED: FENTANYL CITR 100 MCG/2 ML ONE (12:55)
--- NOTE | 2025-01-13 12:56 | EDPHYS ---
Physician Documentation [facility] Name: Juancarlos Cancino Age: 84 yrs Sex: Male : 1940 Arrival Date: 01/13/2025 Time: 09:57 Bed 14 Private MD: ED Physician Gaurang Jaeger HPI: 01/13 12:38 This 84 yrs old Male presents to ER via Wheelchair with complaints of bon Weakness. 12:38 The patient presents to the emergency department with weakness of the entire body, bon generalized weakness. Onset: The symptoms/episode began/occurred 3 day(s) ago. Context: occurred at an unknown location. Associated signs and symptoms: Pertinent positives: weakness. Severity of symptoms: At their worst the symptoms were moderate in the emergency department the symptoms are unchanged. Patient's baseline: Neuro: alert and fully oriented. Current symptoms: Currently, the patient is not experiencing any symptoms, the patient feels back to baseline. The patient has experienced similar episodes in the past, several times. Historical: - Allergies: 10:00 No Known Allergies; ll1 - PMHx: 10:00 a-fib; Hypertensive disorder; kidney disease; ll1 - Immunization history:: Adult Immunizations up to date. - Infectious Disease History:: Denies. - Social history:: Smoking status: Patient denies any tobacco usage or history of. - Family history:: not pertinent. ROS: 12:38 Constitutional: Negative for fever, chills, and weight loss, Eyes: Negative for injury, bon pain, redness, and discharge, ENT: Negative for injury, pain, and discharge, Neck: Negative for injury, pain, and swelling, Cardiovascular: Negative for chest pain, palpitations, and edema, Respiratory: Negative for shortness of breath, cough, wheezing, and pleuritic chest pain, Abdomen/GI: Negative for abdominal pain, nausea, vomiting, diarrhea, and constipation, Back: Negative for injury and pain, : Negative for injury, bleeding, discharge, and swelling, Skin: Negative for injury, rash, and discoloration, Psych: Negative for depression, anxiety, suicide ideation, homicidal ideation, and hallucinations, Allergy/Immunology: Negative for hives, rash, and allergies, Endocrine: Negative for neck swelling, polydipsia, polyuria, polyphagia, and marked weight changes, Hematologic/Lymphatic: Negative for swollen nodes, abnormal bleeding, and unusual bruising, 12:38 Back: Positive for pain at rest, of the lumbar area, 12:38 MS/extremity: Positive for pain, of the right leg, Exam: 12:38 Constitutional: This is a well developed, well nourished patient who is awake, alert, bon and in no acute distress. Head/Face: Normocephalic, atraumatic. Eyes: Pupils equal round and reactive to light, extra-ocular motions intact. Lids and lashes normal. Conjunctiva and sclera are non-icteric and not injected. Cornea within normal limits. Periorbital areas with no swelling, redness, or edema. ENT: Nares patent. No nasal discharge, no septal abnormalities noted. Tympanic membranes are normal and external auditory canals are clear. Oropharynx with no redness, swelling, or masses, exudates, or evidence of obstruction, uvula midline. Mucous membranes moist. Neck: Trachea midline, no thyromegaly or masses palpated, and no cervical lymphadenopathy. Supple, full range of motion without nuchal rigidity, or vertebral point tenderness. No Meningismus. Chest/axilla: Normal chest wall appearance and motion. Nontender with no deformity. No lesions are appreciated. Cardiovascular: Regular rate and rhythm with a normal S1 and S2. No gallops, murmurs, or rubs. Normal PMI, no JVD. No pulse deficits. Respiratory: Lungs have equal breath sounds bilaterally, clear to auscultation and percussion. No rales, rhonchi or wheezes noted. No increased work of breathing, no retractions or nasal flaring. Abdomen/GI: Soft, non-tender, with normal bowel sounds. No distension or tympany. No guarding or rebound. No evidence of tenderness throughout. Male : Normal genitalia with no discharge or lesions. Skin: Warm, dry with normal turgor. Normal color with no rashes, no lesions, and no evidence of cellulitis. Psych: Awake, alert, with orientation to person, place and time. Behavior, mood, and affect are within normal limits. 12:38 ECG was reviewed by the Attending Physician. 12:38 Back: pain, that is moderate, of the lumbar area, ROM is normal, normal spinal alignment noted, CVA tenderness, is absent, vertebral tenderness, is not appreciated, muscle spasm, is not present, 12:38 Musculoskeletal/extremity: ROM: no acute changes, intact in all extremities, full active range of motion, full passive range of motion, Circulation is intact in all extremities. decreased sensation, Compartment Syndrome exam of affected extremity: is normal. Weight bearing: able to fully bear weight, Vital Signs: 10:26 BP 113 / 64; Pulse 50; Resp 18; Temp 97.4(O); Pulse Ox 96% ; Weight 108.86 kg; Height 6 ll1 ft. 0 in. ; Pain 2/10; 11:00 BP 117 / 60; Pulse 46; Resp 16; Pulse Ox 97% ; me1 12:00 BP 115 / 63; Pulse 49; Resp 17; Pulse Ox 100% ; me1 13:00 BP 136 / 96; Pulse 54; Resp 18; Pulse Ox 99% ; me1 13:46 Pain 7/10; me1 14:10 BP 136 / 64; Pulse 50; Resp 16; Pulse Ox 100% ; me1 15:00 BP 146 / 89; Pulse 46; Resp 17; Pulse Ox 98% ; me1 16:00 BP 140 / 82; Pulse 50; Resp 17; Pulse Ox 99% ; me1 17:00 BP 170 / 91; Pulse 48; Resp 16; Pulse Ox 98% ; me1 18:00 BP 143 / 85; Pulse 49; Resp 16; Pulse Ox 98% ; me1 10:26 Body Mass Index 32.55 (108.86 kg, 182.88 cm) ll1 10:26 Pain Scale: Adult ll1 13:46 Pain Scale: Adult me1 MDM: 10:05 Medical Screening Exam initiated [facility] 10:10 Medical Screening Exam initiated [facility] 12:43 Data reviewed: vital signs, nurses notes, lab test result(s), EKG, radiologic studies, [facility] scan, plain films. Consideration of Admission/Observation Patient was admitted/placed on observation. Escalation of care including admission/observation considered. I considered the following discharge prescriptions or medication management in the emergency department Medications were administered in the Emergency Department. See MAR. Independent interpretation of the following test(s) in the Emergency Department EKG: See my EKG interpretation above. Test considered but Not performed: Ultrasound NO 2 D ECHO. Historians other than the Patient: Family Member: WELL INFORMED. Care significantly affected by the following chronic conditions: Hypertension, Obesity, Chronic Kidney Disease, A FIB. Counseling: I had a detailed discussion with the patient and/or guardian regarding the historical points, exam findings, and any diagnostic results supporting the discharge/admit diagnosis, the presence of at least one elevated blood pressure reading (>120/80) during this emergency department visit, lab results, radiology results, the need for further work-up and treatment in the hospital. 01/13 10:07 Order name: Basic Metabolic Panel; Complete Time: 12:36 bon 01/13 10:07 Order name: CBC with Diff; Complete Time: 12:36 bon 01/13 10:07 Order name: LFT's; Complete Time: 12:36 bon 01/13 10:07 Order name: Magnesium; Complete Time: 12:36 bon 01/13 10:07 Order name: NT PRO-BNP; Complete Time: 12:36 01/13 10:07 Order name: PT-INR; Complete Time: 12:36 01/13 10:07 Order name: Troponin HS; Complete Time: 12:36 bon 01/13 10:07 Order name: Lipase; Complete Time: 12:36 bon 01/13 10:07 Order name: Urinalysis w/ reflexes; Complete Time: 12:36 01/13 10:07 Order name: Blood Culture Adult (2) [facility] 01/13 14:22 Order name: CBC with Automated Diff EDMO 01/13 14:22 Order name: CBC with Automated Diff EDMO 01/13 14:22 Order name: Comprehensive Metabolic Panel EDMO 01/13 14:22 Order name: Comprehensive Metabolic Panel EDMO 01/13 14:22 Order name: Magnesium EDMO 01/13 14:22 Order name: Magnesium EDMO 01/13 14:22 Order name: NT PRO-BNP EDMO 01/13 14:22 Order name: NT PRO-BNP EDMS 01/13 14:22 Order name: Troponin High Sensitivity EDMO 01/13 14:22 Order name: Troponin High Sensitivity EDMO 01/13 14:22 Order name: Troponin High Sensitivity EDMO 01/13 10:07 Order name: XRAY Chest (1 view); Complete Time: 12:36 bon 01/13 12:38 Order name: US Extremity Venous Unilateral Ltd; Complete Time: 14:26 bon 01/13 12:38 Order name: CT Lumbar Spine Wo Con; Complete Time: 15:02 bon 01/13 14:11 Order name: Lower Extremity Arterial Bilat; Complete Time: 16:46 [facility] 01/13 14:25 Order name: Echo with Doppler [facility] 01/13 15:48 Order name: CT Aorta for Dissection [facility] 01/13 17:22 Order name: CT [facility] 01/13 14:22 Order name: Physical Therapy Consult [facility] 01/13 10:07 Order name: Cardiac monitoring; Complete Time: 10:47 [facility] 01/13 10:07 Order name: EKG - Nurse/Tech; Complete Time: 10:47 [facility] 01/13 10:07 Order name: IV Saline Lock; Complete Time: 10:34 [facility] 01/13 10:07 Order name: Labs collected and sent; Complete Time: 10:34 [facility] 01/13 10:07 Order name: O2 Per Protocol; Complete Time: 10:34 [facility] 01/13 10:07 Order name: O2 Sat Monitoring; Complete Time: 10:34 [facility] EC:38 Rate is 48 beats/min. Rhythm is regular. QRS [place] is Normal. FL interval is normal. QRS bon interval is normal. QT interval is normal. No Q waves. T waves are Normal. No ST changes noted. Clinical impression: Atrial Fibrillation and No evidence of ischemia. Interpreted by me. Reviewed by me. Administered Medications: 10:51 Drug: NS 0.9% IV 1000 ml IV at 1 bolus Per protocol; to be given as a bolus over 60 me1 minutes Route: IV; Rate: 1 bolus; Site: right antecubital; 12:16 Follow up: Response: No adverse reaction; IV Status: Completed infusion; IV Intake: me1 1000ml 13:00 Drug: fentaNYL (PF) IVP 25 mcg IVP once Route: IVP; Site: right antecubital; me1 13:46 Follow up: Pain 7/10 Adult; Response: No adverse reaction; Pain is decreased me1 13:00 Drug: Ondansetron IVP 4 mg IVP once; over 2 minutes Route: IVP; Site: right antecubital;me1 13:46 Follow up: Response: No adverse reaction; Nausea is decreased me1 14:09 Drug: fentaNYL (PF) IVP 25 mcg IVP once Route: IVP; Site: right antecubital; me1 14:19 Follow up: Response: No adverse reaction; Pain is decreased me1 Disposition Summary: 01/13/25 15:53 Transfer Ordered Notes: Transfer Location: [facility] System bon Reason: Higher level of care bon Condition: Stable(01/13/25 15:53) bon Problem: new(01/13/25 15:53) bon Symptoms: have improved(01/13/25 15:53) bon Accepting Physician: TO [facility](01/13/25 19:01) ll1 Diagnosis - Aortic aneurysm of unspecified site, without rupture - AORTO BIILIAIC STENT 7.3CM bon - Non ST elevation [place] bon - Unspecified kidney failure - CHRONIC GFR 49(01/13/25 15:53) bon - Weakness(01/13/25 15:53) bon Forms: - Medication Reconciliation Form bon - SBAR form bon Signatures: Dispatcher [employer] EDMaryse Paredes Corey, MD MD cha Attema, Lee, DIRECTOR OF MARKETING [employer]-C DIRECTOR OF [employer] ADS-Cla1 Kylie Navarro RN RN ll1 Stephanie Skinner RN RN me1 Corrections: (The following items were deleted from the chart) 10:07 10:07 BASIC METABOLIC PANEL+C.LAB.BRZ ordered. EDMS EDMS 10:07 10:07 CBC+H.LAB.BRZ ordered. EDMS EDMS 10:07 10:07 HEPATIC FUNCTION+C.LAB.BRZ ordered. EDMS EDMS 10:07 10:07 MAGNESIUM+C.LAB.BRZ ordered. EDMS EDMS 10:07 10:07 PROBNP+C.LAB.BRZ ordered. EDMS EDMS 10:07 10:07 PROTIME (+INR)+COAG.LAB.BRZ ordered. EDMS EDMS 10:07 10:07 Troponin High Sensitivity+C.LAB.BRZ ordered. EDMS EDMS 10:07 10:07 LIPASE+C.LAB.BRZ ordered. EDMS EDMS 10:07 10:07 Urinalysis+U.LAB.BRZ ordered. EDMS EDMS 10:07 10:07 BLOOD CULTURE*+BA.LAB.BRZ ordered. EDMS EDMS 10:07 10:07 Chest Single View+RAD.RAD.BRZ ordered. EDMS EDMS 12:38 12:38 Extremity Venous Uni Ltd+US.RAD.BRZ ordered. EDMS EDMS 12:38 12:38 Spine Lumbar Wo Con+CT.RAD.BRZ ordered. EDMS EDMS 15:12 12:55 Telemetry/MedSurg (observation) bon bd 15:12 12:55 bon bd 15:48 12:55 Observation bon bon 15:48 12:55 Doug Baker bon bon 15:48 12:55 Stable bon bon 15:48 12:55 new bon bon 15:48 12:55 have improved bon bon 15:48 12:55 Standard bon bon 15:48 12:55 Weakness bon bon 15:48 12:55 Abnormal levels of other serum enzymes - ELEVATED TROPONIN bon bon 15:48 12:55 Chronic atrial fibrillation bon bon 15:48 12:55 Presence of cardiac pacemaker bon bon 15:48 12:55 Unspecified kidney failure - CHRONIC bon bon 15:48 12:55 Low back pain bon bon 15:48 15:12 [facility] ER HOLD bd bon 15:48 15:12 ERHOLD- bd bon 19:01 15:53 TO [facility] bon ll1
--- NOTE | 2025-01-13 12:56 | ER ---
Nurse's Notes [facility] Name: Juancarlos Cancino Age: 84 yrs Sex: Male : 1940 Arrival Date: 01/13/2025 Time: 09:57 Bed 14 Private MD: Diagnosis: Aortic aneurysm of unspecified site, without rupture-AORTO BIILIAIC STENT 7.3CM;Non ST elevation NM;Unspecified kidney failure-CHRONIC GFR 49;Weakness Presentation: 01/13 10:01 Chief complaint: Patient states: R sided body pain worsening over 1 month. States ll1 severe at night, cannot sleep at times. Coronavirus screen: Client denies travel out of the [place] in the last 14 days. Ebola Screen: Patient denies travel to an Ebola-affected area in the 21 days before illness onset. Initial Sepsis Screen: Does the patient meet any 2 criteria? No. Patient's initial sepsis screen is negative. Does the patient have a suspected source of infection? No. Patient's initial sepsis screen is negative. Risk Assessment: Do you want to hurt yourself or someone else? Patient reports no desire to harm self or others. 10:01 Method Of Arrival: Wheelchair ll1 10:26 No acute neurological deficit is noted. Onset of symptoms was December 08, 2024. ll1 10:26 Acuity: NIGEL 3 ll1 Triage Assessment: 10:28 General: Appears in no apparent distress. Behavior is calm, cooperative, appropriate ll1 for age. Pain: Complains of pain in R arm Pain currently is 2 out of 10 on a pain scale. Quality of pain is described as aching. Neuro: Reports weakness. Musculoskeletal: Reports weakness in R side of body for over a month pain in R side of body. Stroke Activation: Symptom onset > 6 hours Physician: ED Attending; Name: ; Notified At: ; Arrived At: Physician: Mid-Level Provider; Name: ; Notified At: ; Arrived At: Physician: [not used]; Name: ; Notified At: ; Arrived At: Physician: [not used]; Name: ; Notified At: ; Arrived At: Physician: [not used]; Name: ; Notified At: ; Arrived At: Historical: - Allergies: 10:00 No Known Allergies; ll1 - PMHx: 10:00 a-fib; Hypertensive disorder; kidney disease; ll1 - Immunization history:: Adult Immunizations up to date. - Infectious Disease History:: Denies. - Social history:: Smoking status: Patient denies any tobacco usage or history of. - Family history:: not pertinent. Screenin:15 [facility] ED Fall Risk Assessment (Adult) History of falling in the last 3 months, me1 including since admission No falls in past 3 months (0 pts) Confusion or Disorientation No (0 pts) Intoxicated or Sedated No (0 pts) Impaired Gait No (0 pts) Mobility Assist Device Used No (0 pt) Altered Elimination No (0 pt) Score/Fall Risk Level 0 - 2 = Low Risk Maintained a safe environment, Provided non-skid footwear, Hourly rounding (assess needs \T\ fall precautionary measures) done. Abuse screen: Denies threats or abuse. Nutritional screening: No deficits noted. Tuberculosis screening: No symptoms or risk factors identified. Assessment: 10:15 General: Appears uncomfortable, well groomed, well developed, Behavior is calm, me1 cooperative, appropriate for age, Reports R sided body pain worsening over 1 month. States severe at night, cannot sleep at times. Also reports increased weakness over the past month. Pain: Complains of pain in right leg Pain does not radiate. Pain currently is 6 out of 10 on a pain scale. Quality of pain is described as burning, sharp, shooting, Pain began worsening over the past month Is intermittent, episodic. Neuro: Level of Consciousness is awake, alert, obeys commands, Oriented to person, place, time, situation, Appropriate for age. Cardiovascular: Patient's skin is warm and dry. Respiratory: Airway is patent Respiratory effort is even, unlabored, Respiratory pattern is regular, symmetrical. GI: No signs and/or symptoms were reported involving the gastrointestinal system. : No signs and/or symptoms were reported regarding the genitourinary system. EENT: No signs and/or symptoms were reported regarding the EENT system. Derm: Skin is intact, is healthy with good turgor, Skin is pink, warm \T\ dry. Musculoskeletal: No signs and/or symptoms reported regarding the musculoskeletal system. 17:52 General: Report called to JANIE Zamarripa at [facility] ER. me1 19:01 Reassessment: Patient is alert, oriented x 3, equal unlabored respirations, skin me1 warm/dry/pink. Vital Signs: 10:26 BP 113 / 64; Pulse 50; Resp 18; Temp 97.4(O); Pulse Ox 96% ; Weight 108.86 kg; Height 6 ll1 ft. 0 in. ; Pain 2/10; 11:00 BP 117 / 60; Pulse 46; Resp 16; Pulse Ox 97% ; me1 12:00 BP 115 / 63; Pulse 49; Resp 17; Pulse Ox 100% ; me1 13:00 BP 136 / 96; Pulse 54; Resp 18; Pulse Ox 99% ; me1 13:46 Pain 7/10; me1 14:10 BP 136 / 64; Pulse 50; Resp 16; Pulse Ox 100% ; me1 15:00 BP 146 / 89; Pulse 46; Resp 17; Pulse Ox 98% ; me1 16:00 BP 140 / 82; Pulse 50; Resp 17; Pulse Ox 99% ; me1 17:00 BP 170 / 91; Pulse 48; Resp 16; Pulse Ox 98% ; me1 18:00 BP 143 / 85; Pulse 49; Resp 16; Pulse Ox 98% ; me1 10:26 Body Mass Index 32.55 (108.86 kg, 182.88 cm) ll1 10:26 Pain Scale: Adult ll1 13:46 Pain Scale: Adult ga1 ED Course: 10:00 Patient arrived in ED. im 10:05 Gaurang Jaeger MD is Attending Physician. bon 10:09 Stephanie Skinner, JANIE is Primary Nurse. ga1 10:09 Arm band placed on Patient placed in an exam room, on a stretcher. ll1 10:15 Patient has correct armband on for positive identification. Bed in low position. Call [facility] light in reach. Side rails up X2. Provided Education on: POC. Verbalized understanding.. Client placed on continuous cardiac and pulse oximetry monitoring. NIBP monitoring applied. cs associate on. Pulse ox on. NIBP on. 10:15 No provider procedures requiring assistance completed. me1 10:28 Triage completed. ll1 10:28 Initial lab(s) drawn, by me, sent to lab. First set of blood cultures drawn by me. me1 10:34 Inserted saline lock: 20 gauge in right antecubital area, using aseptic technique. me1 10:34 Basic Metabolic Panel Sent. ga1 10:34 CBC with Diff Sent. me1 10:34 LFT's Sent. me1 10:34 Magnesium Sent. me1 10:34 NT PRO-BNP Sent. me1 10:34 PT-INR Sent. me1 10:34 Troponin HS Sent. me1 10:35 Lipase Sent. me1 10:36 Second set of blood cultures drawn by me. me1 10:42 XRAY Chest (1 view) In Process Unspecified. EDMS 10:47 Blood Culture Adult (2) Sent. me1 10:47 Urinalysis w/ reflexes Sent. me1 12:54 Doug Baker is Hospitalizing Provider. bon 13:12 CT Lumbar Spine Wo Con In Process Unspecified. EDMS 13:28 US Extremity Venous Unilateral Ltd In Process Unspecified. EDMS 14:58 Lower Extremity Arterial Bilat In Process Unspecified. EDMS 16:06 initiated transfer to [facility]. bd 18:42 pt accepted in transfer to [facility] by dr crisostomo admin approval given by loretta connor.bd 19:01 Patient transferred, IV remains in place. me1 Administered Medications: 10:51 Drug: NS 0.9% IV 1000 ml IV at 1 bolus Per protocol; to be given as a bolus over 60 me1 minutes Route: IV; Rate: 1 bolus; Site: right antecubital; 12:16 Follow up: Response: No adverse reaction; IV Status: Completed infusion; IV Intake: me1 1000ml 13:00 Drug: fentaNYL (PF) IVP 25 mcg IVP once Route: IVP; Site: right antecubital; me1 13:46 Follow up: Pain 7/10 Adult; Response: No adverse reaction; Pain is decreased me1 13:00 Drug: Ondansetron IVP 4 mg IVP once; over 2 minutes Route: IVP; Site: right antecubital;me1 13:46 Follow up: Response: No adverse reaction; Nausea is decreased me1 14:09 Drug: fentaNYL (PF) IVP 25 mcg IVP once Route: IVP; Site: right antecubital; me1 14:19 Follow up: Response: No adverse reaction; Pain is decreased me1 Medication: 10:15 VIS not applicable for this client. me1 Intake: 12:16 IV: 1000ml; Total: 1000ml. me1 Outcome: 12:55 Decision to Hospitalize by Provider. bon 15:53 ER care complete, transfer ordered by MD. crockett 19:01 Patient left the ED. ll1 19:01 Transferred by ground EMS Note: [facility] ER. me1 19:01 Condition: stable 19:01 Instructed on the need for transfer, Signatures: Dispatcher [employer] EDMaryse Paredes Corey, MD MD cha Lewis, Lynsay, RN RN 1 Kareen Bernstein Michelle, RN RN ga1 Corrections: (The following items were deleted from the chart) 10:28 10:01 Chief complaint: Patient states: Weakness keeps getting worse. States its the 3rd 1 visit for the same ll1 12:12 10:01 Chief complaint: Patient states: R sided body pain worsening over 1 month. States me1 severe at night, cannot sleep at times. ll1
--- NOTE | 2025-01-13 14:08 | RAD REPORT ---
Extremity Venous Uni Ltd CLINICAL INDICATION: Male, 84 years old.PAIN RIGHT TECHNIQUE: Complete duplex sonography of the lower extremity veins was performed of the affected limb . The examination included compression for vein patency, color Doppler imaging and flow augmentation in response to distal compression of the distal external iliac, common femoral, femoral, popliteal, peroneal, tibial and great saphenous veins. [id number]. COMPARISON: No prior exams FINDINGS: Duplex sonography imaging demonstrates all deep veins examined to be fully compressible with spontane ous, phasic and augmented flow in the affected limb. IMPRESSION: No evidence of deep venous thrombosis in the right lower extremity.
[2025-01-13] MEDS ORDERED: ACETAMINOPHEN 325 MG TABLET PO PRN (14:12)
--- NOTE | 2025-01-13 14:29 | RAD REPORT ---
EXAMINATION: Spine Lumbar Wo Con CLINICAL INDICATION: Male, 84 years old. PAIN TECHNIQUE: Axial CT images were obtained through the lumbar spine in soft tissue and bone windows wit hout intravenous contrast. Coronal and Sagittal reformatted images were created from the data set. One or more of the following dose reduction techniques were used: Automated exposure control, adjustm ent of the mA and/ or kV according to patient size, and/or iterative reconstruction. Unless otherwise specified, incidental findings do not require dedicated imaging follow-up. [id number]. COMPARISON: 03/20/2024 FINDINGS: For purposes of this dictation, it is assumed that there are 5 non rib-bearing lumbar type vertebrae, and the most caudal fully segmented lumbar vertebra is labeled L5. ALIGNMENT: Trace retrolisthesis of L1 with respect L2, L2 on L3, and L5 on S1. Grade 1 anterolisthesi s of L4 and L5. BONES: No significant soft tissue abnormalities. No aggressive osseous lesions. DISCS: Moderate to severe diffuse disc height loss with evidence of bilateral neural foraminal narrow ing. Moderate to severe central spinal stenosis is present at L4-5. SOFT TISSUE: Aortoiliac stent graft with infrarenal abdominal aortic aneurysm. The aneurysm sac measu res up to 7.4 cm, previously 7.1 cm. This could reflect an endoleak. IMPRESSION: No acute fracture of the lumbar spine. Advanced degenerative disc disease with evidence of neural for aminal narrowing and possibly severe central spinal stenosis at L4-5. MRI could further evaluate. Infrarenal abdominal aortic aneurysm status post aortobiiliac stent graft placement. The aneurysm sac has increased in size to 7.4 cm, previously 7.1 cm. This could reflect the presence of an endoleak. Recommend vascular surgery referral.
--- NOTE | 2025-01-13 14:42 | P.HP ---
Certification for Inpatient Patient will require the following post-hospital care: None Practitioner: I am a practitioner with admitting privileges, knowledge of patient current condition, hospital course, and medical plan of care. Services: Services provided to patient in accordance with Admission requirements found in Title 42 Section 412.3 of the Code of Federal Regulations Patient History Date of Service: 01/13/25 Reason for admission: Body weakness, elevated troponin, pain bilateral shoulders, bilateral lower Allergies No Known Allergies Allergy (Verified 07/21/24 14:12) Home Medications: Edoxaban Tosylate [Savaysa] 1 tab PO DAILY 05/03/23 Gabapentin [Neurontin*] 1 tab PO TID 05/03/23 Hydralazine [Apresoline*] 1 tab PO BID 05/03/23 Losartan Potassium 1 tab PO DAILY 05/03/23 hydroCHLOROthiazide [Hydrodiuril*] 1 tab PO DAILY 05/03/23 - Past Medical/Surgical History Diabetic: No -: Hypertension -: A-fib -: CHF -: FLAQUITO -: Hypothyroidism -: Spinal muscular atrophy -: Chronic pain both shoulders. -: Pain bilateral lower extremities. -: Bladder cancer in 2005 -: Recent colonoscopy -: Aorta repair-3 years ago -: appendectomy -: Bladder cancer removal in 2005 Psychosocial/ Personal History: Lives in [place] with his . - Social History Alcohol use: Yes CD- Drugs: No Caffeine use: Yes Review of Systems 10-point ROS is otherwise unremarkable General: Weakness ENT: Other (Chronic nose disease internal and external.) Musculoskeletal: Shoulder Pain, Leg Pain, Pedal edema Integumentary: Other (Chronic bilateral lower extremities skin discoloration) Neurological: Weakness Physical Examination - Physical Exam General: Oriented x3, Cooperative, Obese HEENT: Atraumatic, Normocephalic, PERRLA, Other (Dry mucous membrane.), Sclerae nonicteric Neck: Supple, 2+ carotid pulse no bruit, Without JVD or thyroid abnormality Respiratory: Clear to auscultation bilaterally, Normal air movement Cardiovascular: No gallops, No rubs, No murmurs, Other (History of atrial fibrillation), Irregular heart rate/rhythm Gastrointestinal: Normal bowel sounds, Soft and benign, Non-distended, W/out hepatomegaly, No ascites, No masses, No rebound Musculoskeletal: No clubbing, No erythema, Tenderness, Other (Bilateral lower extremity skin discoloration with pain.) Integumentary: No rashes, No breakdown, No significant lesion, No erythema, No warmth, No cyanosis, Other (Tenderness right lower extremity) Neurological: Normal speech, Normal tone, Normal reflexes 2+, Normal affect, Other (Very hard of hearing, patient also uses cane to ambulate.) - Studies Laboratory Data (last 24 hrs) 01/13/25 01/13/25 01/13/25 10:28 10:28 10:28 WBC 7.00 Hgb 14.4 Hct 40.9 Plt Count 148 L PT 21.5 H INR 1.95 Sodium 138 Potassium 4.1 BUN 19 H Creatinine 1.44 H Glucose 119 H Magnesium 1.8 Total Bilirubin 0.7 AST 21 ALT 22 Alkaline Phosphatase 81 Lipase 40 Male Exam - Male Exam Inguinal exam: No hernias Scrotum: No lesions, No edema, Non-tender Testicular exam: Not swollen Penile exam: No discharge Assessment and Plan - Plan Patient is a pleasant 84 years old male with past medical history of atrial fibrillation and currently on Savaysa 60 mg p.o. daily, hypertension, hypothyroidism, gastroesophageal reflux disease, bladder cancer with surgical removal of the cancer in 2005, very hard of hearing, chronic bilateral shoulder pain, and bilateral lower extremities pain, chronic bilateral lower extremities skin discoloration of unknown etiology according to the patient, unsteady gait and uses a cane to ambulate, and remote falls. Patient presents to the ER today complaining of worsening pain right leg which he states started about 6 weeks ago, with progressive worsening within the past 24 hours, generalized body weakness, and pain on both shoulders with no associated chest pain, shortness of breath, abdominal pain, nausea or vomiting, headaches, blurred vision, dizziness, syncope, or urinary symptoms. Patient states he has a chronic pain on both shoulders, and bilateral lower extremities which he describes as occasional pain, states when he saw his neurologist remotely in [place], he was told of having possible spinal muscular atrophy, was then ordered gabapentin 200 mg p.o. nightly. Patient states he has not been told of having any kidney disease, states he has not been drinking enough water lately. Patient initial troponin ER was 210.9, creatinine 1.49, BNP 26 7. Assessment and plan: Patient is a 84-year-old male who reports to ER complaining of worsening pain right lower extremities, and pain on both shoulders, which she describes as aching pain and constant, generalized body weakness, with no associated chest pain, shortness of breath, dizziness, or syncope. (1)Generalized body weakness. Patient had CT scan of the lumbar spine done in ER, result pending. Patient is able to move bilateral lower and upper extremities, equal strength on bilateral lower and upper. -Consult physical therapy for strengthening, endurance, and ambulation. (2)Pain severe right lower extremity, and both shoulders. Patient states he has chronic pain bilateral shoulders and bilateral lower extremities, but he states his pain in the right leg have been worsening within the past 6 weeks, states within the past 24 hours the pain in his right leg is unbearable, and difficult to ambulate on the right leg. Bilateral dorsalis pedis pulses palpable. No sign of cellulitis, no erythema. Patient have a chronic bilateral lower extremities skin discoloration of unknown etiology according to the patient. -Continue on gabapentin 200 mg nightly. -Ultrasound done in ER to rule out DVT right leg which is negative. -Had CT lumbar spine done in ER result still pending. -Order bilateral lower extremities arterial study. With patient bilateral lower extremities discoloration, and worsening pain, it is important to rule out peripheral vascular disease or occlusion. (3) elevated troponin. Patient initial troponin in ER is 210.9 with no associated chest pain, or shortness of breath at this time. Patient states he has been following up with business leader Dr. Allen. -Consult cardiology. - Telemetry. -Serial troponin ordered. (4)Chronic atrial fibrillation. Patient is currently on Savaysa 60 mg p.o. daily. -Will resume patient Savaysa after second troponin is done and evaluated to make sure is not trending upwards, in case patient needs any further intervention by business leader. -Telemetry. (5) chronic hypothyroidism. -Continue patient home medication levothyroxine 200 mcg p.o. daily. (6)Chronic hypertension. -Continue home medication amlodipine 10 mg p.o. daily. -Continue home medication losartan 100 milligram p.o. daily. -Continue home medication hydralazine 25 mg p.o. daily. (7)CHF?. Patient states he does not have any history of CHF that he is aware of but currently on carvedilol 12.5 mg p.o. daily. Patient current BNP 7. No JVD, no peripheral edema noted at this time, no respiratory distress, or any adventitious breath sounds noted. -Continue home medication carvedilol 12.5 mg p.o. daily. -Order echocardiogram. -Cardiology is consulted as noted above. (8) FLAQUITO. When inquired from the patient if he has any history of renal disease, patient state he does not have any history that he is aware of. Patient states he has not drank any water today. Patient with dry mucous membrane. Patient BUN is19, creatinine 1.49. -Order IV NS at 75 mL/ hr x 1 L. -Order follow-up CMP in the morning. (9) Explained the entire treatment plan to the patient, solicit questions answered and voiced understanding. - Advance Directives Does patient have a Living Will: No Does patient have a Durable POA for Healthcare: No - Code Status/Comfort Care Code Status Assessed: Yes Code Status: Full Code
[2025-01-13] MEDS ORDERED: NA CHLORIDE 0.9% 1,000 ML IV SCH (15:00)
--- NOTE | 2025-01-13 15:50 | RAD REPORT ---
EXAMINATION:Lower Extremity Arterial Bilat CLINICAL INDICATION: Male, 84 years old. Severe pain bilateral extremity TECHNIQUE: Arterial duplex ultrasound was performed of the bilateral lower extremities with real-time , color-flow, and spectral wave Doppler evaluation. Ankle brachial indices were not performed. COMPARISON: No prior exam. FINDINGS: Mild plaque throughout the evaluated arterial system. Moderate focal hard plaque popliteal artery. waveforms are seen throughout the evaluated left lower extremity arterial system, to the level of the dorsalis pedis artery. No other suspicious findings. waveforms are seen throughout the evaluated right lower extremity arterial system, to the level of th e dorsalis pedis artery. No other suspicious findings. IMPRESSION: No evidence of significant peripheral vascular disease.
--- NOTE | 2025-01-13 17:21 | RAD REPORT ---
EXAM: CTA of the chest, abdomen and pelvis HISTORY: Chest pain and back pain AAA COMPARISON: 01/13/2025, 03/20/2024 TECHNIQUE: Multiple contiguous axial images were obtained a CTA of the chest and abdomen with contras t per aortic dissection protocol. This involves 3D reconstructions, MIPs, volume rendered images and/or shaded surface rendering. One or more of the following dose reduction techniques were used: Au tomated exposure control, adjustment of the mA and/or kV according to patient size, and/or iterative reconstruction. Unless otherwise specified, incidental findings do not require dedicated im aging follow-up. Sagittal and coronal 3-D MIP reformats were performed. FINDINGS: PULMONARY ARTERIES: Normal in caliber without filling defects to suggest pulmonary emboli. ASCENDING THORACIC AORTA: Normal caliber without evidence of dissection or aneurysmal dilatation. DESCENDING THORACIC AORTA: Normal caliber without evidence of dissection or aneurysmal dilatation. ABDOMINAL AORTA: Infrarenal abdominal aortic aneurysm again noted with endograft in place. Aneurysm s ac measures 8.0 cm. Contrast blush is seen within the sac inferiorly suggesting endoleak CELIAC TRUNK: Mild atherosclerosis at the origin. SMA: Patent RINA: Patent RENAL ARTERIES: Bilateral single renal arteries without significant atherosclerotic disease. MEDIASTINUM: No hilar or mediastinal lymphadenopathy. LUNGS: No focal infiltrates or masses. PLEURAL SPACE: No pleural effusion or pneumothorax. LIVER: Unremarkable. SPLEEN: Unremarkable. PANCREAS: Unremarkable. KIDNEYS: Left renal cysts are present benign in appearance.. ADRENALS: Unremarkable. BOWEL: No bowel obstruction, free fluid or abscess. No free air seen.. RETROPERITONEUM: No lymphadenopathy. BONES: Moderate lumbar degenerative changes are present. IMPRESSION: No acute abnormality is detected. Infrarenal abdominal aortic aneurysm with endograft in place measuring up to 8 cm. There is suspicion for endoleak present with contrast noted in the inferior aspect of the aneurysm sac.
[2025-01-13 19:43] VITALS: TEMP 97.4
[2025-01-13 19:55] VITALS: O2SAT 98
[2025-01-13 19:57] VITALS: BP 143/85
[2025-01-14] MEDS ORDERED: AMLODIPINE 10 MG TAB PO SCH (09:00)
--- NOTE | 2025-01-14 11:56 | EKG ---
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
== END 2025-01-13 19:00 | disposition short-term general hospital (02) ==
LOC: ER 09:57 → ERHOLD 14:09
PROVIDERS: ADMIT Internal Medicine; ATTEND Internal Medicine
DX: I21.4 Non-ST elevation (NSTEMI) myocardial infarction (principal); N17.9 Acute kidney failure, unspecified; R53.1 Weakness; M25.512 Pain in left shoulder; M25.511 Pain in right shoulder; M79.604 Pain in right leg; I71.40 Abdominal aortic aneurysm, without rupture, unspecified; R79.89 Other specified abnormal findings of blood chemistry; I48.11 Longstanding persistent atrial fibrillation; E03.9 Hypothyroidism, unspecified; I10 Essential (primary) hypertension; Z79.01 Long term (current) use of anticoagulants; Z95.1 Presence of aortocoronary bypass graft
CPT/HCPCS: 96361; 93005; 87040 ×2; 85025; 81001; 80048; 36415; 83735; 85610; 80076; 84484; 83690; 83880; 72131; 71275; 74175; 71045; 93925; 93971; 96375; 96374; 99285; Q9967; J3010; J2405; J7030; G0378 ×2